=== PATIENT | male | born 1945 | race Caucasian/White ===

== ENCOUNTER 2021-12-11 17:28 | Observation (INO) | payer OTHER ==
--- OUTSIDE RECORDS SUMMARY | 2021-12-11 17:31 | XMS REPORT | Continuity of Care Document ---
:1945 Author Organization [facility] t Address [address] [place] [address] Care Team Providers Name Role Phone Unavailable Unavailable Unavailable Payers Payer Name Policy Type Policy Number Effective Date Expiration Date S ource Problems This patient has no known problems. Allergies, Adverse Reactions, Alerts Allergy Allergy Status Severity Reaction(s) Onset Inactive Treating Comm ents Source Name Type Date Date Clinician No Known DA Active U 2018-06 [facility] 1-19 [place] 00:[facility]: [address] No Known DA Active U 2015-06 [facility] 0-03 [place] 00:[place]: [address] Medications This patient has no known medications. Procedures This patient has no known procedures. Results Test Description Test Time Test Comments Results Result [facility] e Comments CT, BRAIN, 2019-06-07 FINAL REPORT PATIENT WITHOUT CONTRAST 08:36:00 ID: [id number] CT, BRAIN, WITHOUT CONTRAST CLINICAL INDICATION: MCI COMPARISON: None TECHNIQUE: Noncontrast axial CT imaging of the brain and skull. DOSE REDUCTION: Dose modulation, iterative reconstruction, and/or weight-based adjustment of the mA/kV was utilized to reduce the radiation dose to as low as reasonably achievable. FINDINGS:No intracranial hemorrhage, midline shift or mass effect. Midline structures are normally developed. Mild chronic microvascular ischemic changes of the periventricular and subcortical white matter are present. No hydrocephalus. Orbits are within normal limits. No obstructive paranasal sinus disease. IMPRESSION: No acute intracranial findings If there is persistent clinical concern for intracranial pathology, MR examination is recommended for further characterization. Signed: Jeannette Fofanaeport Verified Date/Time: 06/07/2019 08:36:08 Reading Location: [facility] Reading Room - XR CHEST 1 V 2019-05-18 FAX: Y 11:03:00 Vernon Rivera [phone] Camps: [address]: ADM FAX: Y Javier Perera MD Name: BART SANCHEZ [facility] : 1945 Age/S: 73/M [address] [facility] Unit #: [id number] Loc: [facility] [place], [place] [address] Phys: Javier Perera MD Acct: [id number] Dis Date: Status: ADM IN PHONE #: [phone] Exam Date: 05/18/2019 110 FAX #: [phone] Reason: SHORTNESS OF BREATH EXAMS: CPT CODE: [id number] XR CHEST 1 V 06606 Chest one view AP 05/18/2019 11:02 AM CLINICAL INDICATION: Shortness of breath COMPARISON: 05/16/2019 LOCATION: W1 IMPRESSION: There is suspected pulmonary emphysema. There is bibasilar atelectasis. Cardiomediastinal contours are within normal limits. The central pulmonary vasculature is not engorged. at 1102 Reported and signed by: YING BURTON M.D. CC: Vernon Rivera; Javier Perera MD Technologist: ZEINA RIZVIRT(R)() (ARRT) Transcribed Date/Time/By: 05/18/2019 (2383) :[email or web address] Orig Print D/T: S: 05/18/2019 (1106) Automated exposure control, iterative reconstruction technique, and/oradjustment of mA and/or kV according to patient's size was utilizedfor optimum radiation dose reduction. PAGE 1 Signed Report DRUGS OF ABUSE SCREEN UR 2019-05-18 07:00:00 Test Item Value Reference Range Interpretation Comme nts URN TRICYCLICS (test code = TRICYCURN) Negative NEGATIVE URN COCAINE (test code = COCAURN) Negative NEGATIVE URN CANNABINOIDS (test code = CANNABURN) Negative NEGATIVE URN AMPHETAMINE (test code = AMPHETURN) Negative NEGATIVE URN BARBITURATE (test code = BARBITURN) Positive NEGATIVE A URN BENZODIAZEPINE (test code = BENZOURN) Positive NEGATIVE A URN OPIATES (test code = OPIATURN) Negative NEGATIVE URN PHENCYCLIDINE (PCP) (test code = PHENCURN) Negative NEGATIV E URN METHADONE (test code = METHAURN) Negative NEGATIVE UDS PROCEDURAL CONTROL VERIFIED? YKIT LOT # [id number]. DATE 0870-43-51TUDPTO [id number] 03:43:00 Test Item Value Reference Range Interpretation Comments LACTIC ACID (test code = LACT) 1.00 mmol/L 0.4-2.0 N [id number] 03:38:00 Test Item Value Reference Range Interpretation Comments AMMONIA (test code = AMM) <10 umol/L 1132 L - DUP EXTRACRANIAL [id number] 14:35:00 [place]: [address]: ADM Name: FRANCESBART MCKINLEY [facility] : 1945 Age/S: 73/M [address] Unit #: [id number] Loc: [address] [place], [place] [address] Phys: Bryce Herzog MD Acct: [id number] Dis Date: Status: ADM IN PHONE #: [phone] Exam Date: 05/17/20194 FAX #: [phone] Reason: msc EXAMS: CPT CODE: [id number] DUP EXTRACRANIALBIL 89764 BILATERAL CAROTID ARTERY ULTRASOUND 05/17/2019 CLINICAL INDICATION: Mental status change COMPARISON: None availableLOCATION: W1 TECHNIQUE: Transcutaneous sonography of bilateral carotid systems was performed with delarosa scale, spectral, color-flow and Doppler analysis. FINDINGS: There is no remarkable atherosclerotic plaque deposition in either common, internal, or external carotid artery. Peak systolic velocities in centimeters per second are as follows: Right ICA: 61 Left ICA: 51 Right CCA: 83 Left CCA 108 Right ECA: 80 Left ECA: 90 Right ICA/CCA ratio: 0.7 Left ICA/CCA r atio: 0.5 Flow is antegrade in both vertebral arteries. IMPRESSION: No evidence for hemodynamically significant stenosis in either internal carotid artery. at 1435 Reported and signed by: YING BURTON M.D. PAGE 1 Signed Report (CONTINUED) [place]: [address]: ADM - Name: BART SANCHEZ [facility] : 1945 Age/S: 73/M [address] [facility] Unit #: [id number] Loc: [address] [place], [place] [address] Phys: Bryce Herzog MD Acct: [id number] Date: Status: ADM IN PHONE #: [phone] Exam Date: 05/17/2019 1414 FAX #: [phone] Reason: msc EXAMS: CPT CODE: [id number] DUP EXTRACRANIAL STEPHANIE 11072 <Continued> Facility ACR Accreditation for Ultrasound - July 2011 CC: Vernon Rivera; Javier Perera MD; MD Rosenda Trammell Technologist: BRE ALDANA RDMS Transcribed Date/Time/By: 05/17/2019 (0823) : By: [email or web address] Orig Print D/T: S: 05/17/2019 (8388) PAGE 2 Signed Report- MRI BRAIN W WO [id number] 14:13:00 FAX: Lizzie RiveraVernon E M [phone] Camps: [address]: ADM FAX: Javier Vences EMD FAX: Bryce Orta MD [phone] [facility] 1945 Age/S: 73/M [address] [facility] Unit #: [id number] Loc: [address] [place], [place] [address] Phys: Bryce Herzog MD Acct: [id number] Dis Date: Status: ADM IN PHONE #: [phone] Exam Date: 05/17/2019 1404 FAX #: [phone] Reason: msc EXAMS: CPT CODE: [id number] MRI BRAIN W WO CONT 52545 MRI Brain with and without contrast 05/17/2019 2:10 PM CLINICAL HISTORY: Mental status change TECHNIQUE: Multiplanar, multisequence MR imagi ng of the brain was performed, utilizing the following imaging sequences: Axial T1, T2, FLAIR, GRE, DWI/ADC; sagittal T1; postcontrast axial, sagittal, and coronal T1. COMPARISON: 11/11/2010. LOCATION: W1 FINDINGS: Patient motion degrades this examination. Pathology may be obscured. With this limitation mind, there is no acute infarct, mass, hematoma, hydrocephalus, extra-axial collection, or abnormal intracranial enhancement. There is moderately advanced chronic microvascular ischemia in the supratentorial white matter. There is questionable hemosiderin staining overlying the left frontal, parietal, and occipital lobes, which may reflect artifact or sequela of prior subarachnoid hemorrhage. Thereis generalized parenchymal volume loss. Normal appearing flow-voids are present within the major intracranial vascular structures. The sellar and pineal regions are normal. The craniovertebral junction is intact. The orbits, face, and skull base are without worrisome finding. IMPRESSION: 1. Motion limited examination. 2. Chronic microvascular ischemia. No acute intracranial abnormality. at 1413 Reported and signed by: YING BURTON M.D. PAGE 1 Signed Report (CONTINUED)FAX: Vernon Holm [phone] Camps: [address] St: ADM FAX: Javier Vences MD FAX: Byrce Orta MD [phone] [facility] 1945 Age/S: 73/M [address] Unit #:[id number] Loc: [address] [place], [place] [address] Phys: Bryce Herzog MD Acct: [id number] Dis Date: Status: ADM IN PHONE #: [phone] Exam Date: 05/17/2019 1404 FAX #: [phone] Reason: msc EXAMS: CPT CODE: [id number] MRI BRAIN W WO CONT 22494 <Continued> CC: Vernon Rivera; Javier Perera MD; MD Rosenda Trammell Technologist: Neymar Washington RT(R)(CT)(MRI)ARRT Transcribed Date/Time/By: 05/17/2019 (7579) :[email or web address] Orig Print D/T: S: 05/17/2019 (4176) PAGE 2 Signed Report VITAMIN [id number] 09:18:00 Test Item Value Reference Range Interpretation Comments VITAMIN B12 (test code = VITB12) 677 pg/mL 230-940 N C REACTIVE [id number] 09:12:00 Test Item Value Reference Range Interpretation Comments C REACTIVE PROTEIN (test code = 0.60 mg/dL 0.29-0.90 N CRP) DILANTIN (PHENYTOIN)2019-05-17 08:49:00 Test Item Value Reference Range Interpretation Comments DILANTIN (PHENYTOIN) (test code = 15.4 mcg/dL 10-20 N DIL) BASIC METABOLIC [id number] 06:24:00 Test Item Value Reference Range Interpretation Comments SODIUM (test code = 134 mmol/L 136-145 L NA) POTASSIUM (test code = 3.7 mmol/L 3.5-5.1 N K) CHLORIDE (test code = 100 mmol/L 98-113 N CL) CARBON DIOXIDE (test 32 mmol/L 21-32 N code = CO2) GLUCOSE (test code = 87 mg/dL 65-99 N GLU) BLOOD UREA NITROGEN 13 mg/dL 7-18 N (test code = BUN) GLOMERULAR FILTRATION 141 Report ing units: RATE (test code = GFR) ml/mi n/1.73m\S\2 (Modified MDRD Formula)If age < 18 years, GFR is n ot applicable. KD/ DOQI Clinical Practi ce Guidelines: Sta ge 1: Kidney damage w/normal or inc reased GFR >90Stag e 2: Kidney damage w /mild decrease in GFR 60 - 89Stage 3: Moderate decrea se in GFR 30 - 59Stage 4: Severe decrease in GFR 15 - 29Stage 5: Kidney failure < 15 (or dialysis) CREATININE (test code 0.6 mg/dL 0.6-1.0 N = CREAT) CALCIUM (test code = 9.1 mg/dL 7.8-10.9 N CA) [id number] 06:24:00 Test Item Value Reference Range Interpretation Comments MAGNESIUM (test code = MAG) 2.2 mg/dL 1.5-2.1 H CBC W/AUTO [id number] 06:22:00 Test Item Value Reference Range Interpretation Comments WHITE BLOOD CELL (test code = 8.7 K/mm3 4.8-10.8 N WBC) RED BLOOD CELL (test code = RBC) 4.06 M/mm3 4.2-5.4 L HEMOGLOBIN (test code = HGB) 12.8 gm/DL 13.5-17.5 L HEMATOCRIT (test code = HCT) 37.7 % 37.1-51.5 N MEAN CELL VOLUME (test code = 92.9 fL 81-99 N MCV) MEAN CELL HGB (test code = MCH) 31.5 pg 27-31 H MEAN CELL HGB CONCETRATION (test 34.0 gm/dL 33-37 N code = MCHC) RED CELL DISTRIBUTION WIDTH (test 12.8 % 11.5-14.5 N code = RDW) PLATELET COUNT (test code = PLT) 296 X10(3) 130-400 N MEAN PLATELET VOLUME (test code = 9.0 fL 9.4-12.4 L MPV) NEUTROPHIL % (test code = NT%) 61.0 % 51.5-79.7 N IMMATURE GRANULOCYTE % (test code 0.500 % 0.108-0.322 H = IG%) LYMPHOCYTE % (test code = LY%) 23.7 % 14-40 N MONOCYTE % (test code = MO%) 13.5 % 4.0-10.2 H EOSINOPHIL % (test code = EO%) 0.8 % 0-4.1 N BASOPHIL % (test code = BA%) 0.5 % 0.1-0.7 N NUCLEATED RBC % (test code = 0 % 0-0 N NRBC%) NEUTROPHIL # (test code = NT#) 5.3 K/mm3 2.5-8.6 N IMMATURE GRANULOCYTE # (test code 0.040 K/mm3 0.0052-0.0224 H = IG#) LYMPHOCYTE # (test code = LY#) 2.1 K/mm3 1.1-3.6 N MONOCYTE # (test code = MO#) 1.2 K/mm3 0.3-0.9 H EOSINOPHIL # (test code = EO#) 0.07 # 0.0-0.4 N BASOPHIL # (test code = BA#) 0.04 K/mm3 0.0-0.2 N NUCLEATED RBC # (test code = 0.00 K/mm3 0.00-0.20 N NRBC#) BASIC METABOLIC [id number] 06:21:00 Test Item Value Reference Range Interpretation Comments SODIUM (test code = NA) 134 mmol/L 136-145 L POTASSIUM (test code = K) 3.7 mmol/L 3.5-5.1 N CHLORIDE (test code = CL) 100 mmol/L 98-113 N CARBON DIOXIDE (test code = CO2) 32 mmol/L 21-32 N GLUCOSE (test code = GLU) 87 mg/dL 65-99 N BLOOD UREA NITROGEN (test code = 13 mg/dL 7-18 N BUN) GLOMERULAR FILTRATION RATE (test code = GFR) CREATININE (test code = CREAT) mg/dL 0.6-1.0 CALCIUM (test code = CA) 9.1 mg/dL 7.8-10.9 N [id number] 06:21:00 Test Item Value Reference Range Interpretation Comments MAGNESIUM (test code = MAG) 2.2 mg/dL 1.5-2.1 H ARTERIAL BLOOD [id number] 18:32:00 Test Item Value Reference Range Interpretation Comments ARTERIAL BLOOD GAS PH (test code 7.408 7.35-7.45 N = PHA) ARTERIAL BLOOD GAS PCO2 (test 42.5 mmHg 35-45 N code = PCO2A) ARTERIAL BLOOD GAS PO2 (test 78.2 mmHg 80-100 L code = PO2A) BICARBONATE TOTAL HCO3 (test 26.2 meq/L 22-26 H code = HCO3) BASE EXCESS (test code = LUCY) 1.3 -2.0-+2.0 N ABG O2 SATURATION (test code = 95.6 % 95-100 N SATA) ABG OXIMETRY (test code = OXA) 95.2 % sat FIO2 (test code = FIO2A) 28 % ABG VENT MODE (test code = NC MODEA) ABG PATIENT RESP RATE (test code 18.0 /MIN = RRPATA) ABG TIDAL VOLUME (test code = 0 ml TVA) ABG PEEP (test code = PEEPA) 0 cmH2O LORAINE TEST (test code = ALN) Yes ABG SITE (test code = SITEA) RIGHT RADIAL TOTAL HGB (test code = THB) 13.7 g% 12.0-18.0 N HGB O2 SAT (test code = HBOSAT) 95.2 % 92.0-98.0 N OXYHEMOGLOBIN-ART (test code = 95.2 % 92.0-98.0 N OOHGBT) CARBOXYHEMOGLOBIN (test code = 0.8 % 0.5-1.5 N HOHGBT) METHEMOGLOBIN (test code = 0.2 % 0.0-1.5 N METHGB) HEPATIC FUNCTION [id number] 17:37:00 Test Item Value Reference Range Interpretation Comments TOTAL PROTEIN (test 7.1 g/dL 6.4-8.2 N code = PROT) ALBUMIN (test code = 3.4 g/dL 3.4-5.0 N ALB) GLOBULIN (test code = 3.7 gm/dL 2.3-3.5 H GLOB) ALBUMIN/GLOBULIN 0.9 1.5-2.2 L RATIO (test code = A/G) BILIRUBIN TOTAL (test 0.3 mg/dL 0.0-1.1 N code = BILT) BILIRUBIN DIRECT <0.1 mg/dL 0.05-0.3 N (test code = BILD) BILIRUBIN INDIRECT 0.2 mg/dL 0.0-0.6 N (test code = BILIND) SGOT/AST (test code = 20 U/L 15-37 N Report ing units: AST) International U nits/L SGPT/ALT (test code = 34 U/L 10-30 H Report ing units: ALT) International U nits/L ALKALINE PHOSPHATASE 112 U/L 45-117 N TOTAL (test code = ALKP) [id number] 17:37:00 Test Item Value Reference Range Interpretation Comments LIPASE (test code = 242 U/L 73-393 N Reportin g units: LIP) International U nits/L NT PRO-BRAIN NATRIURETIC [id number] 17:37:00 Test Item Value Reference Range Interpretation Comments NT PRO-BRAIN NATRIURETIC PEPTI (test 94 pg/mL 0-125 N code = PROBNP) TROPONIN I [id number] 17:35:00 Test Item Value Reference Range Interpretation Comments TROPONIN I RAPID 0.00 NG/ML 0.00-0.08 N An elevated troponin value (test code = alone is not worrell fficient TROPIRAP) todiagnose a my ocardial infarction. Rat her, the patient'sclinic al presentation (h istory, physical exam) and ECGshould be us ed in conjuction with troponin in the diagnostice valuation of suspected myoca rdial infaction. A se rialsampling protocol is rec ommended to facilitate theidentificati on of temporal change s in troponin levelscharacter jaqueline [facility]. CHEMISTRY 8 [id number] 17:35:00 Test Item Value Reference Range Interpretation Comments IONIZED CALCIUM (test code = 1.19 mmol/L 1.13-1.32 N CAIABG) ISTAT-TCO2 VENOUS (test code = 27 MMOL/L 24-30 N TCO2VP) ISTAT-HEMOGLOBIN (test code = 13.3 G/DL 13.5-17.5 L HBP) ISTAT-HEMATOCRIT (test code = 39 % 44.0-56.0 L HCTP) ISTAT-SODIUM (test code = NAP) 132 MMOL/L 136-145 L ISTAT-POTASSIUM (test code = KP) 3.6 MMOL/L 3.5-5.1 N ISTAT-CHLORIDE (test code = CLP) 97 MMOL/L 98-107 L ISTAT GLUCOSE (test code = GLUP) 97 MG/DL 65-99 N ISTAT-BUN (test code = BUNP) 18 MG/DL 7-18 N BEDSIDE CREATININE (test code = 0.6 MG/DL 0.6-1.0 N CREATBED) - XR CHEST 1 [id number] 17:34:00 FAX: Vernon Holm [phone] Camps: ER St: REG FAX: Catarino Lopez [phone] Name: BART SANCHEZ [facility] : 1945 Age/S: 73/M [address] Unit #: [id number] Loc: [place], [place] [address] Phys: Catarino Lopez MD Acct: LEATHA [id number] Dis Date: Status: REG ER PHONE #: [phone] Exam Date: 05/16/2019 1706 FAX #: [phone] Reason: SOB EXAMS: CPT CODE: [id number] XR CHEST 1 V 08555 AP VIEW OF THE CHEST LOCATION: R16 CLINICAL HISTORY: Shortness of breath. COMPARISON: Chest radiograph 05/08/2019. FINDINGS: The cardiomediastinal shadow is within normal limits. Mild atherosclerotic calcifications are noted in the aortic knob. The lungs are clear. No pleural fluids. No acute bony abnormality is found. IMPRESSION: No radiographic evidence of acute cardiopulmonary disease process. at 2493 Reported andsigned by: SAVLADOR FLANAGAN MD CC: Vernon Rivera; Catarino Lopez MD Technologist: ZEINA RIZVIRT(R)() (ARRT) Transcribed Date/Time/By: 05/16/2019 (9210) :[email or web address] Orig Print D/T: S: 05/16/2019 (8496) Automated exposure control, iterative reconstruction technique, and/oradjustment of mA and/or kV according to patient's size was utilizedfor optimum radiation dose reduction. PAGE 1 Signed ReportPROTHROMBIN [id number] 17:26:00 Test Item Value Reference Interpretation Comments Range PROTHROMBIN TIME 10.9 SECONDS 9.9-11.6 N PATIENT (test code = PTP) INTERNATIONAL 1.06 0.93-1.2 N Recommended Th erapeutic NORMAL RATIO (test PT Ratios For Oral code = INR) AnticoagualantT herapy. CONDITION INT'L NORMALIZED PT R --------- ------ Prophylaxis of venous thrombosis 2.0 - 3.0in hig h risk medical or surgicalpatient s, treatment of venousthrombosi s, prevention of e mbolism. Prevention of r ecurrent embolism, 3.0 - 4.5or treatme nt of patients with mechanicalprost hetic heart valves. IS THE PATIENT ON ANY ANTICOAGULANTS? NTHROMBOPLASTIN TIME [id number] 17:26:00 Test Item Value Reference Range Interpretation Comments THROMBOPLASTIN TIME PARTIAL 30.3 SECONDS 23.0-32.0 N (test code = PTT) IS THE PATIENT ON ANY ANTICOAGULANTS? ND-DIMER [id number] 17:26:00 Test Item Value Reference Range Interpretation Comments D-DIMER QUANT (test 0.31 mg/L 0.19-0.52 N *A resul t of greater or code = DDIMER) equal to 0.50 mg/L FEU is consideredpo sitive, a result of <0.50 is considered nega tive for DVTor PE. IS THE PATIENT ON ANY ANTICOAGULANTS? NPROTHROMBIN [id number] 17:24:00 Test Item Value Reference Interpretation Comments Range PROTHROMBIN TIME 10.9 SECONDS 9.9-11.6 N PATIENT (test code = PTP) INTERNATIONAL 1.06 0.93-1.2 N Recommended Th erapeutic NORMAL RATIO (test PT Ratios For Oral code = INR) AnticoagualantT herapy. CONDITION INT'L NORMALIZED PT R --------- ------ Prophylaxis of venous thrombosis 2.0 - 3.0in hig h risk medical or surgicalpatient s, treatment of venousthrombosi s, prevention of e mbolism. Prevention of r ecurrent embolism, 3.0 - 4.5or treatme nt of patients with mechanicalprost hetic heart valves. IS THE PATIENT ON ANY ANTICOAGULANTS? NTHROMBOPLASTIN TIME [id number] 17:24:00 Test Item Value Reference Range Interpretation Comments THROMBOPLASTIN TIME PARTIAL (test SECONDS 23.0-32.0 code = PTT) IS THE PATIENT ON ANY ANTICOAGULANTS? ND-DIMER [id number] 17:24:00 Test Item Value Reference Range Interpretation Comments D-DIMER QUANT (test code = DDIMER) mg/L 0.19-0.52 IS THE PATIENT ON ANY ANTICOAGULANTS? NCBC W/AUTO [id number] 17:16:00 Test Item Value Reference Range Interpretation Comments WHITE BLOOD CELL (test code = 10.5 K/mm3 4.8-10.8 N WBC) RED BLOOD CELL (test code = RBC) 3.94 M/mm3 4.2-5.4 L HEMOGLOBIN (test code = HGB) 12.5 gm/DL 13.5-17.5 L HEMATOCRIT (test code = HCT) 36.6 % 37.1-51.5 L MEAN CELL VOLUME (test code = 92.9 fL 81-99 N MCV) MEAN CELL HGB (test code = MCH) 31.7 pg 27-31 H MEAN CELL HGB CONCETRATION (test 34.2 gm/dL 33-37 N code = MCHC) RED CELL DISTRIBUTION WIDTH (test 12.8 % 11.5-14.5 N code = RDW) PLATELET COUNT (test code = PLT) 283 X10(3) 130-400 N MEAN PLATELET VOLUME (test code = 8.8 fL 9.4-12.4 L MPV) NEUTROPHIL % (test code = NT%) 69.3 % 51.5-79.7 N IMMATURE GRANULOCYTE % (test code 0.600 % 0.108-0.322 H = IG%) LYMPHOCYTE % (test code = LY%) 16.2 % 14-40 N MONOCYTE % (test code = MO%) 12.1 % 4.0-10.2 H EOSINOPHIL % (test code = EO%) 1.2 % 0-4.1 N BASOPHIL % (test code = BA%) 0.6 % 0.1-0.7 N NUCLEATED RBC % (test code = 0 % 0-0 N NRBC%) NEUTROPHIL # (test code = NT#) 7.3 K/mm3 2.5-8.6 N IMMATURE GRANULOCYTE # (test code 0.060 K/mm3 0.0052-0.0224 H = IG#) LYMPHOCYTE # (test code = LY#) 1.7 K/mm3 1.1-3.6 N MONOCYTE # (test code = MO#) 1.3 K/mm3 0.3-0.9 H EOSINOPHIL # (test code = EO#) 0.13 # 0.0-0.4 N BASOPHIL # (test code = BA#) 0.06 K/mm3 0.0-0.2 N NUCLEATED RBC # (test code = 0.00 K/mm3 0.00-0.20 N NRBC#) - CT CHEST W/O [id number] 20:25:00 [place]: [address]: REG Name: BART SANCHEZ [facility] : 1945 Age/S: 73/M [address] Unit #: [id number] Loc: [place], [place] [address] Phys: Randolph Romero MD Acct: [id number] Dis Date: Status: REG ER PHONE #: [phone] Exam Date: 05/08/20192004 FAX #: [phone] Reason: SOB CTDI: DLP: Automated exposure control, iterative reconstruction technique, and/oradjustment of mA and/or kV according to patient's size was utilized fooptimum radiation dose reduction. EXAMS: CPT CODE: [id number] CT CHEST W/O CONTRAST [address]690 CT chest without IV contrast INDICATION:SOB COMPARISON:11/12/2010 TECHNIQUE: Contiguous axial images of the chest were obtained without IV c ontrast. Coronal and sagittal reformats were obtained. Automated exposure control, iterative reconstruction technique, and/or adjustment of mA and/or kV according to patient's size was utilized for optimum radiation dose reduction. FINDINGS:The visualized neck is unremarkable. Trace secretions are noted in the trachea. The esophagus is unremarkable. Atherosclerosis of the thoracic aorta is identified. Ultimately is noted. No large pericardial effusion is identified. Extensive emphysematous changes are noted bilaterally predominantly in the upper lobes. 6 cm nodule is noted in the right lower lobe. 5 mm nodule is noted in the left lower lobe. Additional punctate nodules are noted bilaterally. Atelectasisversus scarring is noted in the lung bases. No consolidation, pleural effusions or pneumothorax is identified. Small mediastinal lymph nodes are noted which are nonspecific. The visualized abdomen is unremarkable. Degenerative changes of the spine are note d. IMPRESSION: 1. Extensive emphysematous changes bilaterally predominantly in bilateral upper lobes. 2. 6 mm nodule in the right lower lobe and 5 mm nodule in the left lower lobe which are stable compared to prior study dated 11/12/2010. Additional punctate nodules are noted bilaterally. Recommend 6 month PAGE 1 Signed Report (CONTINUED) [place]: [address]: REG Name: BART SANCHEZ [facility] : 1945 Age/S: 73/M [address] Unit #: [id number] Loc: LEATHA.MADIHA [place], [place] [address] Phys: Randolph Romero MD Acct: [id number] Dis Date: Status: REG ER PHONE #: [phone] Exam Date: 05/08/20192004 FAX #: [phone] Reason: SOB CTDI: DLP: Automated exposure control, iterative reconstruction technique, and/oradjustment of mA and/or kV according to patient's size was utilized fooptimum radiation dose reduction. EXAMS: CPT CODE: [id number] CT CHEST W/O CONTRAST 39020 <Continued> CT follow-up. 3. No consolidation. at 2024 Reported and signed by: JANELLE DAWN M.D. Facility ACR Accreditation for CT - January 2012 CC: Vernon Rivera; Randolph Romero MD Technologist: ALICIA MOSER RT(R) (ARRT) Transcribed Date/Time/By: 05/08/2019 (2024) : By: [email or web address] Orig Print D/T: S: 05/08/2019 (2028) PAGE 2 Signed ReportNT PRO-BRAIN NATRIURETIC [id number] 19:49:00 Test Item Value Reference Range Interpretation Comments NT PRO-BRAIN NATRIURETIC PEPTI 108 pg/mL 0-125 N (test code = PROBNP) CBC W/AUTO [id number] 19:45:00 Test Item Value Reference Range Interpretation Comments WHITE BLOOD CELL (test code = 11.7 K/mm3 4.8-10.8 H WBC) RED BLOOD CELL (test code = RBC) 3.55 M/mm3 4.2-5.4 L HEMOGLOBIN (test code = HGB) 11.4 gm/DL 13.5-17.5 L HEMATOCRIT (test code = HCT) 32.4 % 37.1-51.5 L MEAN CELL VOLUME (test code = 91.3 fL 81-99 N MCV) MEAN CELL HGB (test code = MCH) 32.1 pg 27-31 H MEAN CELL HGB CONCETRATION (test 35.2 gm/dL 33-37 N code = MCHC) RED CELL DISTRIBUTION WIDTH (test 12.6 % 11.5-14.5 N code = RDW) PLATELET COUNT (test code = PLT) 328 X10(3) 130-400 N MEAN PLATELET VOLUME (test code = 8.8 fL 9.4-12.4 L MPV) NEUTROPHIL % (test code = NT%) 65.0 % 51.5-79.7 N IMMATURE GRANULOCYTE % (test code 1.000 % 0.108-0.322 H = IG%) LYMPHOCYTE % (test code = LY%) 20.6 % 14-40 N MONOCYTE % (test code = MO%) 12.1 % 4.0-10.2 H EOSINOPHIL % (test code = EO%) 0.7 % 0-4.1 N BASOPHIL % (test code = BA%) 0.6 % 0.1-0.7 N NUCLEATED RBC % (test code = 0 % 0-0 N NRBC%) NEUTROPHIL # (test code = NT#) 7.6 K/mm3 2.5-8.6 N IMMATURE GRANULOCYTE # (test code 0.120 K/mm3 0.0052-0.0224 H = IG#) LYMPHOCYTE # (test code = LY#) 2.4 K/mm3 1.1-3.6 N MONOCYTE # (test code = MO#) 1.4 K/mm3 0.3-0.9 H EOSINOPHIL # (test code = EO#) 0.08 # 0.0-0.4 N BASOPHIL # (test code = BA#) 0.07 K/mm3 0.0-0.2 N NUCLEATED RBC # (test code = 0.00 K/mm3 0.00-0.20 N NRBC#) ARTERIAL BLOOD [id number] 19:27:00 Test Item Value Reference Range Interpretation Comments ARTERIAL BLOOD GAS PH (test code 7.448 7.35-7.45 N = PHA) ARTERIAL BLOOD GAS PCO2 (test 38.1 mmHg 35-45 N code = PCO2A) ARTERIAL BLOOD GAS PO2 (test 70.8 mmHg 80-100 L code = PO2A) BICARBONATE TOTAL HCO3 (test 25.8 meq/L 22-26 N code = HCO3) BASE EXCESS (test code = LUCY) 1.8 -2.0-+2.0 N ABG O2 SATURATION (test code = 94.9 % 95-100 L SATA) ABG OXIMETRY (test code = OXA) 93.6 % sat FIO2 (test code = FIO2A) 21 % ABG VENT MODE (test code = ROOM AIR MODEA) ABG PATIENT RESP RATE (test code 0 /MIN = RRPATA) ABG TIDAL VOLUME (test code = 0 ml TVA) ABG PEEP (test code = PEEPA) 0 cmH2O LORAINE TEST (test code = ALN) Yes ABG SITE (test code = SITEA) RIGHT RADIAL TOTAL HGB (test code = THB) 12.6 g% 12.0-18.0 N HGB O2 SAT (test code = HBOSAT) 93.6 % 92.0-98.0 N OXYHEMOGLOBIN-ART (test code = 93.6 % 92.0-98.0 N OOHGBT) CARBOXYHEMOGLOBIN (test code = 0.6 % 0.5-1.5 N HOHGBT) METHEMOGLOBIN (test code = 0.1 % 0.0-1.5 N METHGB) TROPONIN I [id number] 19:26:00 Test Item Value Reference Range Interpretation Comments TROPONIN I RAPID 0.00 NG/ML 0.00-0.08 N An elevated troponin value (test code = alone is not worrell fficient TROPIRAP) todiagnose a my ocardial infarction. Rat her, the patient'sclinic al presentation (h istory, physical exam) and ECGshould be us ed in conjuction with troponin in the diagnostice valuation of suspected myoca rdial infaction. A se rialsampling protocol is rec ommended to facilitate theidentificati on of temporal change s in troponin levelscharacter istic of [place]. CHEMISTRY 8 [id number] 19:26:00 Test Item Value Reference Range Interpretation Comments IONIZED CALCIUM (test code = 1.04 mmol/L 1.13-1.32 L CAIABG) ISTAT-TCO2 VENOUS (test code = 27 MMOL/L 24-30 N TCO2VP) ISTAT-HEMOGLOBIN (test code = 11.9 G/DL 13.5-17.5 L HBP) ISTAT-HEMATOCRIT (test code = 35 % 44.0-56.0 L HCTP) ISTAT-SODIUM (test code = NAP) 133 MMOL/L 136-145 L ISTAT-POTASSIUM (test code = KP) 3.3 MMOL/L 3.5-5.1 L ISTAT-CHLORIDE (test code = CLP) 99 MMOL/L 98-107 N ISTAT GLUCOSE (test code = GLUP) 89 MG/DL 65-99 N ISTAT-BUN (test code = BUNP) 16 MG/DL 7-18 N BEDSIDE CREATININE (test code = 0.5 MG/DL 0.6-1.0 L CREATBED) - XR CHEST 1 [id number] 19:09:00 FAX: Vernon Holm [phone] Camps: ER St: REG FAX: Randolph Weiss MD Name: BART SANCHEZ [facility] : 1945 Age/S: 73/M 89a [facility] Unit #: [id number] Loc: [place], [place] [address] Phys: Randolph Romero MD Acct: LEATHA [id number] Dis Date: Status: REG ER PHONE #: [phone] Exam Date: 05/08/2019 184 FAX #: [phone] Reason: SOB EXAMS: CPT CODE: [id number] XR CHEST 1 V 20773 Site ID: [id number] EXAMINATION: - XR CHEST 1 V. HISTORY: SOB. COMPARISON: 2018. Findings: The lungs are clear. The heart size is normal. There is no effusion or pneumothorax. The mediastinum and brook appear unremarkable. Impression: Unremarkable study. at 1909 Reported and signed by: HIMA DUBON MD CC: Vernon Rivera; Randolph Romero MD Technologist: SHARYN HERNANDEZ RT (R)(ARRT) Transcribed Date/Time/By: 05/08/2019 (1908) :GeovannaTZS Orig Print D/T: S: 05/08/2019 (1911) Automated exposure control, iterative reconstruction technique, and/oradjustment of mA and/or kV according to patient's size was utilizedfor optimum radiation dose reduction. PAGE 1 Signed ReportARTERIAL BLOOD [id number] 05:20:00 Test Item Value Reference Range Interpretation Comments ARTERIAL BLOOD GAS PH (test code 7.471 7.35-7.45 H = PHA) ARTERIAL BLOOD GAS PCO2 (test 31.7 mmHg 35-45 L code = PCO2A) ARTERIAL BLOOD GAS PO2 (test 85.2 mmHg 80-100 N code = PO2A) BICARBONATE TOTAL HCO3 (test 22.6 meq/L 22-26 N code = HCO3) BASE EXCESS (test code = LUCY) -0.2 -2.0-+2.0 N ABG O2 SATURATION (test code = 97.1 % 95-100 N SATA) ABG OXIMETRY (test code = OXA) 96.1 % sat FIO2 (test code = FIO2A) 21 % ABG VENT MODE (test code = ROOM AIR MODEA) ABG PATIENT RESP RATE (test code 0 /MIN = RRPATA) ABG TIDAL VOLUME (test code = 0 ml TVA) ABG PEEP (test code = PEEPA) 0 cmH2O LORAINE TEST (test code = ALN) Yes ABG SITE (test code = SITEA) RIGHT RADIAL TOTAL HGB (test code = THB) 13.6 g% 12.0-18.0 N HGB O2 SAT (test code = HBOSAT) 96.1 % 92.0-98.0 N OXYHEMOGLOBIN-ART (test code = 96.1 % 92.0-98.0 N OOHGBT) CARBOXYHEMOGLOBIN (test code = 0.8 % 0.5-1.5 N HOHGBT) METHEMOGLOBIN (test code = 0.2 % 0.0-1.5 N METHGB) BASIC METABOLIC [id number] 19:08:00 Test Item Value Reference Range Interpretation Comments SODIUM (test code = 134 mmol/L 136-145 L NA) POTASSIUM (test code = 3.4 mmol/L 3.5-5.1 L K) CHLORIDE (test code = 101 mmol/L 98-113 N CL) CARBON DIOXIDE (test 28 mmol/L 21-32 N code = CO2) GLUCOSE (test code = 88 mg/dL 65-99 N GLU) BLOOD UREA NITROGEN 28 mg/dL 7-18 H (test code = BUN) GLOMERULAR FILTRATION 141 Report ing units: RATE (test code = GFR) ml/mi n/1.73m\S\2 (Modified MDRD Formula)If age < 18 years, GFR is n ot applicable. KD/ DOQI Clinical Practi ce Guidelines: Sta ge 1: Kidney damage w/normal or inc reased GFR >90Stag e 2: Kidney damage w /mild decrease in GFR 60 - 89Stage 3: Moderate decrea se in GFR 30 - 59Stage 4: Severe decrease in GFR 15 - 29Stage 5: Kidney failure < 15 (or dialysis) CREATININE (test code 0.6 mg/dL 0.6-1.0 N = CREAT) CALCIUM (test code = 9.8 mg/dL 7.8-10.9 N CA) [id number] 19:08:00 Test Item Value Reference Range Interpretation Comments MAGNESIUM (test code = MAG) 2.2 mg/dL 1.5-2.1 H NT PRO-BRAIN NATRIURETIC [id number] 19:08:00 Test Item Value Reference Range Interpretation Comments NT PRO-BRAIN NATRIURETIC PEPTI (test 43 pg/mL 0-125 N code = PROBNP) PROTHROMBIN [id number] 18:58:00 Test Item Value Reference Interpretation Comments Range PROTHROMBIN TIME 10.9 SECONDS 9.9-11.6 N PATIENT (test code = PTP) INTERNATIONAL 1.06 0.93-1.2 N Recommended Th erapeutic NORMAL RATIO (test PT Ratios For Oral code = INR) AnticoagualantT herapy. CONDITION INT'L NORMALIZED PT R --------- ------ Prophylaxis of venous thrombosis 2.0 - 3.0in hig h risk medical or surgicalpatient s, treatment of venousthrombosi s, prevention of e mbolism. Prevention of r ecurrent embolism, 3.0 - 4.5or treatme nt of patients with mechanicalprost hetic heart valves. IS THE PATIENT ON ANY ANTICOAGULANTS? NTHROMBOPLASTIN TIME [id number] 18:58:00 Test Item Value Reference Range Interpretation Comments THROMBOPLASTIN TIME PARTIAL 29.1 SECONDS 23.0-32.0 N (test code = PTT) IS THE PATIENT ON ANY ANTICOAGULANTS? NPROTHROMBIN [id number] 18:57:00 Test Item Value Reference Interpretation Comments Range PROTHROMBIN TIME 10.9 SECONDS 9.9-11.6 N PATIENT (test code = PTP) INTERNATIONAL 1.06 0.93-1.2 N Recommended Th erapeutic NORMAL RATIO (test PT Ratios For Oral code = INR) AnticoagualantT herapy. CONDITION INT'L NORMALIZED PT R --------- ------ Prophylaxis of venous thrombosis 2.0 - 3.0in hig h risk medical or surgicalpatient s, treatment of venousthrombosi s, prevention of e mbolism. Prevention of r ecurrent embolism, 3.0 - 4.5or treatme nt of patients with mechanicalprost hetic heart valves. IS THE PATIENT ON ANY ANTICOAGULANTS? NTHROMBOPLASTIN TIME [id number] 18:57:00 Test Item Value Reference Range Interpretation Comments THROMBOPLASTIN TIME PARTIAL (test SECONDS 23.0-32.0 code = PTT) IS THE PATIENT ON ANY ANTICOAGULANTS? NCBC W/AUTO [id number] 18:43:00 Test Item Value Reference Range Interpretation Comments WHITE BLOOD CELL (test code = 9.3 K/mm3 4.8-10.8 N WBC) RED BLOOD CELL (test code = RBC) 4.11 M/mm3 4.2-5.4 L HEMOGLOBIN (test code = HGB) 13.4 gm/DL 13.5-17.5 L HEMATOCRIT (test code = HCT) 37.7 % 37.1-51.5 N MEAN CELL VOLUME (test code = 91.7 fL 81-99 N MCV) MEAN CELL HGB (test code = MCH) 32.6 pg 27-31 H MEAN CELL HGB CONCETRATION (test 35.5 gm/dL 33-37 N code = MCHC) RED CELL DISTRIBUTION WIDTH (test 13.4 % 11.5-14.5 N code = RDW) PLATELET COUNT (test code = PLT) 325 X10(3) 130-400 N MEAN PLATELET VOLUME (test code = 9.4 fL 9.4-12.4 N MPV) NEUTROPHIL % (test code = NT%) 62.2 % 51.5-79.7 N IMMATURE GRANULOCYTE % (test code 0.600 % 0.108-0.322 H = IG%) LYMPHOCYTE % (test code = LY%) 24.3 % 14-40 N MONOCYTE % (test code = MO%) 12.2 % 4.0-10.2 H EOSINOPHIL % (test code = EO%) 0.2 % 0-4.1 N BASOPHIL % (test code = BA%) 0.5 % 0.1-0.7 N NUCLEATED RBC % (test code = 0 % 0-0 N NRBC%) NEUTROPHIL # (test code = NT#) 5.7 K/mm3 2.5-8.6 N IMMATURE GRANULOCYTE # (test code 0.060 K/mm3 0.0052-0.0224 H = IG#) LYMPHOCYTE # (test code = LY#) 2.3 K/mm3 1.1-3.6 N MONOCYTE # (test code = MO#) 1.1 K/mm3 0.3-0.9 H EOSINOPHIL # (test code = EO#) 0.02 # 0.0-0.4 N BASOPHIL # (test code = BA#) 0.05 K/mm3 0.0-0.2 N NUCLEATED RBC # (test code = 0.00 K/mm3 0.00-0.20 N NRBC#) TROPONIN I [id number] 18:41:00 Test Item Value Reference Range Interpretation Comments TROPONIN I RAPID 0.00 NG/ML 0.00-0.08 N 0.00 - 0.08 (test code = Normal0.09 - 0. 40 TROPIRAP) Indeterminate f or AMI 0.41 and above Compatible with AMI - XR CHEST 1 [id number] 18:10:00 FAX: Vernon Holm [phone] Camps: ER St: REG FAX: Sergio Sanderson [phone] Name: LAURABART [facility] : 1945 Age/S: 73/M 89a [facility] Unit #: [id number] Loc: [place] [address] Phys: Sergio Nicole DO Acct: [id number] Dis Date: Status: REG ER PHONE #: [phone] Exam Date: 03/31/2019 1756 FAX #: [phone] Reason: SOB EXAMS: CPT CODE: [id number] XR CHEST 1 V 57766 Exam: Chest portable semierect Location: H 12 History: SOB Comparison: SOB Findings: The lungs are clear. No infiltrate or effusion is seen. The pulmonary vasculature is normal. The heart size is enlarged. Atherosclerosis involves the aorta. The mediastinal silhouette is unremarkable. The bony thorax is intact with degenerative changes noted. Impression: No acute disease. at 1810 Reported and signed by: LIZ DOUGLASS MD CC: Vernon Rivera; Sergio Nicole DO Technologist: ARJUN MAK RT,(R) ARRT Transcribed Date/Time/By: 03/31/2019 (1809) :GeovannaFC Orig Print D/T: S: 03/31/2019 (1812) Automated exposure control, iterative reconstruction technique, and/oradjustment of mA and/or kVaccording to patient's size was utilizedfor optimum radiation dose reduction. PAGE 1 Signed Report CHEMISTRY 8 [id number] 18:03:00 Test Item Value Reference Range Interpretation Comments IONIZED CALCIUM (test code = 1.22 mmol/L 1.13-1.32 N CAIABG) ISTAT-TCO2 VENOUS (test code = 25 MMOL/L 24-30 N TCO2VP) ISTAT-HEMOGLOBIN (test code = 14.3 G/DL 13.5-17.5 N HBP) ISTAT-HEMATOCRIT (test code = 42 % 44.0-56.0 L HCTP) ISTAT-SODIUM (test code = NAP) 135 MMOL/L 136-145 L ISTAT-POTASSIUM (test code = KP) 3.6 MMOL/L 3.5-5.1 N ISTAT-CHLORIDE (test code = CLP) 98 MMOL/L 98-107 N ISTAT GLUCOSE (test code = GLUP) 90 MG/DL 65-99 N ISTAT-BUN (test code = BUNP) 27 MG/DL 7-18 H BEDSIDE CREATININE (test code = 0.6 MG/DL 0.6-1.0 N CREATBED) TROPONIN I [id number] 15:57:00 Test Item Value Reference Range Interpretation Comments TROPONIN I RAPID 0.01 NG/ML 0.00-0.08 N 0.00 - 0.08 (test code = Normal0.09 - 0. 40 TROPIRAP) Indeterminate f or AMI 0.41 and above Compatible with AMI CHEMISTRY 8 [id number] 15:50:00 Test Item Value Reference Range Interpretation Comments IONIZED CALCIUM (test code = 1.10 mmol/L 1.13-1.32 L CAIABG) ISTAT-TCO2 VENOUS (test code = 28 MMOL/L 24-30 N TCO2VP) ISTAT-HEMOGLOBIN (test code = 13.6 G/DL 13.5-17.5 N HBP) ISTAT-HEMATOCRIT (test code = 40 % 44.0-56.0 L HCTP) ISTAT-SODIUM (test code = NAP) 134 MMOL/L 136-145 L ISTAT-POTASSIUM (test code = KP) 3.6 MMOL/L 3.5-5.1 N ISTAT-CHLORIDE (test code = CLP) 96 MMOL/L 98-107 L ISTAT GLUCOSE (test code = GLUP) 81 MG/DL 65-99 N ISTAT-BUN (test code = BUNP) 6 MG/DL 7-18 L BEDSIDE CREATININE (test code = 0.6 MG/DL 0.6-1.0 N CREATBED) - XR CHEST 1 [id number] 15:19:00 FAX: Vernon Holm [phone] Camps: ER St: REG FAX: Rodo Alberto MD [phone] Name: BART SANCHEZ [facility] : 1945 Age/S: 73/M 89a [facility] Unit #: [id number] Loc: [place], [place] [address] Phys: Rodo Euceda MD Acct: [id number] Dis Date: Status: REG ER PHONE #: [phone] Exam Date: 03/24/2019 1505 FAX #: [phone] Reason: dyspnea EXAMS: CPT CODE: [id number] XR CHEST 1 V 19086 Chest one view AP 03/24/2019 3:19 PM CLINICAL HISTORY: Dyspnea COMPARISON: 03/22/2019 LOCATION: W1 FINDINGS: The lungs are clear. Cardiomediastinal contours are within normal limits. The central pulmonary vasculature is not engorged. IMPRESSION: Unremarkable frontal chest radiograph. at 3478 Reported and signed by: YING BURTON M.D. CC: Vernon Rivera; Rodo Euceda MD Technologist: HARMAN AU, RT(R) ARRT Transcribed Date/Time/By: 03/24/2019 (4801) :[email or web address].[email or web address] Orig Print D/T: S: 03/24/2019 (4604) Automated exposure control, iterative reconstruction technique, and/oradjustment of mA and/or kV according to patient's size was utilizedfor optimum radiation dose reduction. PAGE 1 Signed ReportURINALYSIS W/O [id number] 20:38:00 Test Item Value Reference Range Interpretation Comments UA COLOR (test code = COLU) LIGHT YELLOW YELLOW UA APPEARANCE (test code = SLIGHTLY HAZY CLEAR APPU) UA GLUCOSE DIPSTICK (test code NEGATIVE NEGATIVE = DGLUU) UA BILIRUBIN DIPSTICK (test NEGATIVE NEGATIVE code = BILU) UA KETONE DIPSTICK (test code = NEGATIVE NEGATIVE KETU) UA SPECIFIC GRAVITY (test code <= 1.005 1.000-1.030 N = SGU) UA BLOOD DIPSTICK (test code = TRACE NEGATIVE A MINA) UA PH DIPSTICK (test code = 5.0 5.0-8.5 N YANN) UA PROTEIN DIPSTICK (test code NEGATIVE NEGATIVE = PROU) UA UROBILINIOGEN DIPSTICK (test 0.2 EU/DL <=1.0 EU/DL code = URO) UA NITRITE DIPSTICK (test code NEGATIVE NEGATIVE = SHIV) UA LEUKOCYTE ESTERASE DIPSTICK NEGATIVE NEGATIVE (test code = LEUU) SOURCE: URINESPECIMEN DESCRIPTION: CMCUA [id number] 20:38:00 Test Item Value Reference Range Interpretation Comments UA WBC (test code = WBCU) 0-2 0-5 UA RBC (test code = RBCU) 0-2 0-5 UA AMORPHOUS SEDIMENT (test code = OCC NONE-FEW AMORU) SOURCE: URINESPECIMEN DESCRIPTION: [facility] [place] [id number] 20:35:00 Test Item Value Reference Range Interpretation Comments TOTAL PROTEIN (test 7.4 g/dL 6.4-8.2 N code = PROT) ALBUMIN (test code = 3.7 g/dL 3.4-5.0 N ALB) GLOBULIN (test code = 3.7 gm/dL 2.3-3.5 H GLOB) ALBUMIN/GLOBULIN 1.0 1.5-2.2 L RATIO (test code = A/G) BILIRUBIN TOTAL (test 0.4 mg/dL 0.0-1.1 N code = BILT) BILIRUBIN DIRECT 0.1 mg/dL 0.05-0.3 N (test code = BILD) BILIRUBIN INDIRECT 0.3 mg/dL 0.0-0.6 N (test code = BILIND) SGOT/AST (test code = 16 U/L 15-37 N Report ing units: AST) International U nits/L SGPT/ALT (test code = 19 U/L 10-30 N Report ing units: ALT) International U nits/L ALKALINE PHOSPHATASE 100 U/L 45-117 N TOTAL (test code = ALKP) [id number] 20:35:00 Test Item Value Reference Range Interpretation Comments MAGNESIUM (test code = MAG) 1.8 mg/dL 1.5-2.1 N THYROID STIMULATING [id number] 20:35:00 Test Item Value Reference Range Interpretation Comments THYROID STIMULATING 2.78 mcgIU/mL 0.400-4.00 N Reporti ng units: HORMONE (test code = Interna tional Units/L TSH) NT PRO-BRAIN NATRIURETIC [id number] 20:35:00 Test Item Value Reference Range Interpretation Comments NT PRO-BRAIN NATRIURETIC PEPTI (test 68 pg/mL 0-125 N code = PROBNP) TROPONIN I [id number] 20:07:00 Test Item Value Reference Range Interpretation Comments TROPONIN I RAPID 0.00 NG/ML 0.00-0.08 N 0.00 - 0.08 (test code = Normal0.09 - 0. 40 TROPIRAP) Indeterminate f or AMI 0.41 and above Compatible with AMI POC LACTIC [id number] 20:07:00 Test Item Value Reference Range Interpretation Comments POC LACTIC ACID 2.19 MMOL/L 0.40-2.00 H RESULTS CALL ED TO [] (test code = POCLAC) AT 200603/22/19.NMI-MT CRITICA L VALUE READ BA CK BY NURSE AND VERIF IED BY TECH? []REFEREN CE RANGES FOR: 1) ARTERIAL SAMPLE (0.5-1.6MMOL/L) 2) SPINAL FLUID (0.6-2.2MMOL/L) PROTHROMBIN [id number] 20:04:00 Test Item Value Reference Interpretation Comments Range PROTHROMBIN TIME 10.3 SECONDS 9.9-11.6 N PATIENT (test code = PTP) INTERNATIONAL 1.00 0.93-1.2 N Recommended Th erapeutic NORMAL RATIO (test PT Ratios For Oral code = INR) AnticoagualantT herapy. CONDITION INT'L NORMALIZED PT R --------- ------ Prophylaxis of venous thrombosis 2.0 - 3.0in hig h risk medical or surgicalpatient s, treatment of venousthrombosi s, prevention of e mbolism. Prevention of r ecurrent embolism, 3.0 - 4.5or treatme nt of patients with mechanicalprost hetic heart valves. IS THE PATIENT ON ANY ANTICOAGULANTS? NTHROMBOPLASTIN TIME [id number] 20:04:00 Test Item Value Reference Range Interpretation Comments THROMBOPLASTIN TIME PARTIAL 32.2 SECONDS 23.0-32.0 H (test code = PTT) IS THE PATIENT ON ANY ANTICOAGULANTS? NCBC W/AUTO [id number] 19:49:00 Test Item Value Reference Range Interpretation Comments WHITE BLOOD CELL (test code = 8.7 K/mm3 4.8-10.8 N WBC) RED BLOOD CELL (test code = RBC) 4.07 M/mm3 4.2-5.4 L HEMOGLOBIN (test code = HGB) 13.2 gm/DL 13.5-17.5 L HEMATOCRIT (test code = HCT) 37.2 % 37.1-51.5 N MEAN CELL VOLUME (test code = 91.4 fL 81-99 N MCV) MEAN CELL HGB (test code = MCH) 32.4 pg 27-31 H MEAN CELL HGB CONCETRATION (test 35.5 gm/dL 33-37 N code = MCHC) RED CELL DISTRIBUTION WIDTH (test 13.2 % 11.5-14.5 N code = RDW) PLATELET COUNT (test code = PLT) 261 X10(3) 130-400 N MEAN PLATELET VOLUME (test code = 9.1 fL 9.4-12.4 L MPV) NEUTROPHIL % (test code = NT%) 62.5 % 51.5-79.7 N IMMATURE GRANULOCYTE % (test code 0.500 % 0.108-0.322 H = IG%) LYMPHOCYTE % (test code = LY%) 22.1 % 14-40 N MONOCYTE % (test code = MO%) 12.8 % 4.0-10.2 H EOSINOPHIL % (test code = EO%) 1.2 % 0-4.1 N BASOPHIL % (test code = BA%) 0.9 % 0.1-0.7 H NUCLEATED RBC % (test code = 0 % 0-0 N NRBC%) NEUTROPHIL # (test code = NT#) 5.4 K/mm3 2.5-8.6 N IMMATURE GRANULOCYTE # (test code 0.040 K/mm3 0.0052-0.0224 H = IG#) LYMPHOCYTE # (test code = LY#) 1.9 K/mm3 1.1-3.6 N MONOCYTE # (test code = MO#) 1.1 K/mm3 0.3-0.9 H EOSINOPHIL # (test code = EO#) 0.10 # 0.0-0.4 N BASOPHIL # (test code = BA#) 0.08 K/mm3 0.0-0.2 N NUCLEATED RBC # (test code = 0.00 K/mm3 0.00-0.20 N NRBC#) URINALYSIS W/O [id number] 19:49:00 Test Item Value Reference Range Interpretation Comments UA COLOR (test code = COLU) LIGHT YELLOW YELLOW UA APPEARANCE (test code = SLIGHTLY HAZY CLEAR APPU) UA GLUCOSE DIPSTICK (test code NEGATIVE NEGATIVE = DGLUU) UA BILIRUBIN DIPSTICK (test NEGATIVE NEGATIVE code = BILU) UA KETONE DIPSTICK (test code = NEGATIVE NEGATIVE KETU) UA SPECIFIC GRAVITY (test code <= 1.005 1.000-1.030 N = SGU) UA BLOOD DIPSTICK (test code = TRACE NEGATIVE A MINA) UA PH DIPSTICK (test code = 5.0 5.0-8.5 N YANN) UA PROTEIN DIPSTICK (test code NEGATIVE NEGATIVE = PROU) UA UROBILINIOGEN DIPSTICK (test 0.2 EU/DL <=1.0 EU/DL code = URO) UA NITRITE DIPSTICK (test code NEGATIVE NEGATIVE = SHIV) UA LEUKOCYTE ESTERASE DIPSTICK NEGATIVE NEGATIVE (test code = LEUU) SOURCE: URINESPECIMEN DESCRIPTION: [facility] [id number] 19:49:00 Test Item Value Reference Range Interpretation Comments UA WBC (test code = WBCU) 0-5 UA RBC (test code = RBCU) 0-5 SOURCE: URINESPECIMEN DESCRIPTION: CMCURINALYSIS W/O [id number] 19:49:00 Test Item Value Reference Range Interpretation Comments UA COLOR (test code = COLU) LIGHT YELLOW YELLOW UA APPEARANCE (test code = SLIGHTLY HAZY CLEAR APPU) UA GLUCOSE DIPSTICK (test code NEGATIVE NEGATIVE = DGLUU) UA BILIRUBIN DIPSTICK (test NEGATIVE NEGATIVE code = BILU) UA KETONE DIPSTICK (test code = NEGATIVE NEGATIVE KETU) UA SPECIFIC GRAVITY (test code <= 1.005 1.000-1.030 N = SGU) UA BLOOD DIPSTICK (test code = TRACE NEGATIVE A MINA) UA PH DIPSTICK (test code = 5.0 5.0-8.5 N YANN) UA PROTEIN DIPSTICK (test code NEGATIVE NEGATIVE = PROU) UA UROBILINIOGEN DIPSTICK (test 0.2 EU/DL <=1.0 EU/DL code = URO) UA NITRITE DIPSTICK (test code NEGATIVE NEGATIVE = SHIV) UA LEUKOCYTE ESTERASE DIPSTICK NEGATIVE NEGATIVE (test code = LEUU) SOURCE: URINESPECIMEN DESCRIPTION: CMCUA [id number] 19:49:00 Test Item Value Reference Range Interpretation Comments UA WBC (test code = WBCU) 0-5 UA RBC (test code = RBCU) 0-5 SOURCE: URINESPECIMEN DESCRIPTION: CMCCHEMISTRY 8 [id number] 19:48:00 Test Item Value Reference Range Interpretation Comments IONIZED CALCIUM (test code = 1.11 mmol/L 1.13-1.32 L CAIABG) ISTAT-TCO2 VENOUS (test code = 27 MMOL/L 24-30 N TCO2VP) ISTAT-HEMOGLOBIN (test code = 14.3 G/DL 13.5-17.5 N HBP) ISTAT-HEMATOCRIT (test code = 42 % 44.0-56.0 L HCTP) ISTAT-SODIUM (test code = NAP) 132 MMOL/L 136-145 L ISTAT-POTASSIUM (test code = KP) 3.4 MMOL/L 3.5-5.1 L ISTAT-CHLORIDE (test code = CLP) 92 MMOL/L 98-107 L ISTAT GLUCOSE (test code = GLUP) 77 MG/DL 65-99 N ISTAT-BUN (test code = BUNP) 11 MG/DL 7-18 N BEDSIDE CREATININE (test code = 0.8 MG/DL 0.6-1.0 N CREATBED) - XR CHEST 1 [id number] 19:36:00 FAX: Lizzie AlfordRiveraApVernon Tomi Allen [phone] Camps: ER St: REG FAX: Catarino Lopez [phone] Name: BART SANCHEZ [facility] : 1945 Age/S: 73/M 89a [facility] Unit #: [id number] Loc: [place], [place] [address] Phys: Catarino Lopez MD Acct: [id number] Dis Date: Status: REG ER PHONE #: [phone] Exam Date: 03/22/20191929 FAX #: [phone] Reason: SOB EXAMS: CPT CODE: [id number] XR CHEST 1 V 20142 AP VIEW OF T HE CHEST LOCATION: R16 CLINICAL HISTORY: Shortness of breath. COMPARISON: Chest radiograph 01/13/2017. FINDINGS: The cardiomediastinal shadow is within normal limits. The lungs are clear. No pleural fluids. No acute bony abnormality is found. IMPRESSION: Unremarkable radiographic study of the chest. at 1936 Reported and signed by: SALVADOR FLANAGAN MD CC: Vernon Rivera; Catarino oLpez MD Technologist: SHARYN HERNANDEZ RT (R)(ARRT) Transcribed Date/Time/By: 03/22/2019 (1935) :Henrique.DINO Orig Print D/T: S: 03/22/2019 (1939) Automated exposure control, iterative reconstruction technique, and/oradjustment of mA and/or kV according to patient's size was utilizedfor optimum radiation dose reduction. PAGE 1 Signed Report
--- NOTE | 2021-12-11 18:12 | RAD REPORT ---
EXAM DESCRIPTION: CT - [id number] - 12/11/2021 6:04 pm CLINICAL HISTORY: Trauma, head and neck injury. fall COMPARISON: No comparisonsNo comparisons TECHNIQUE: Axial 5 mm thick images of the head were obtained. Axial 2 mm thick images of the cervical spine were obtained with sagittal and coronal reconstruction images generated and reviewed. All CT scans are performed using dose optimization technique as appropriate and may include automated exposure control or mA/KV adjustment according to patient size. FINDINGS: CT HEAD WITHOUT CONTRAST: No acute hemorrhage, hydrocephalus or extra-axial collection is identified.Moderate chronic small ves neftali ischemic changes. The paranasal sinuses and mastoids are clear.The calvarium is intact. CT CERVICAL SPINE WITHOUT CONTRAST: No fracture or subluxation.No prevertebral soft tissues swelling is identified. Advanced emphysema. M ultilevel cervical spondylosis. Reversal of the normal cervical lordosis is likely related to underly ing degenerative changes. There are bridging osteophytes at C5-6 and C6-7 as well as partial fusion o f several the facets. IMPRESSION: No acute intracranial or cervical spine findings.
[2021-12-11 18:30] LABS: Absolute Lymphocytes (CBC) 1.5 K/uL (0.7-4.9); Lymphocytes % 19.8 % (15.3-44.8); MPV 8.3 fL (7.6-11.3)
--- NOTE | 2021-12-11 18:32 | RAD REPORT ---
EXAM DESCRIPTION: RAD - Knee Left 3 View - 12/11/2021 6:01 pm CLINICAL HISTORY: PAIN COMPARISON: No comparisons FINDINGS: No acute fracture. No malalignment. Slight medial compartment narrowing IMPRESSION: No acute osseous abnormality involving the left knee.
--- NOTE | 2021-12-11 18:32 | RAD REPORT ---
EXAM DESCRIPTION: RAD - Knee Right 3 View - 12/11/2021 6:01 pm CLINICAL HISTORY: PAIN COMPARISON: No comparisons FINDINGS/IMPRESSION: No acute fracture. No malalignment. No significant focal degenerative changes.
--- NOTE | 2021-12-11 18:33 | RAD REPORT ---
EXAM DESCRIPTION: RAD - Forearm Right - 12/11/2021 6:01 pm CLINICAL HISTORY: PAIN COMPARISON: No comparisons FINDINGS: No acute fracture. No malalignment. No significant focal degenerative changes. IMPRESSION: No acute osseous abnormality involving the right forearm.
--- NOTE | 2021-12-11 18:34 | RAD REPORT ---
EXAM DESCRIPTION: RAD - Chest Single View - 12/11/2021 6:01 pm CLINICAL HISTORY: fall COMPARISON: Chest Pa And Lat (2 Views) dated 08/10/2019 FINDINGS: Lines: None. Lungs: Mild coarsening of some of the basilar and mid lung interstitial markings. Emphysema. Pleural: No significant pleural effusions or pneumothorax. Cardiac: The heart size is within normal limits. Bones: No acute fractures. Other: IMPRESSION: Emphysema. Mild coarsening of the interstitial markings could reflect a component of mil d infection or inflammation. No consolidative pneumonia or edema.
[2021-12-11 18:40] LABS: Potassium 3.8 mmol/L (3.5-5.1); Troponin High Sensitivity 7.1 pg/mL (<58.9)
--- NOTE | 2021-12-11 19:39 | EDPHYS ---
Physician Documentation [facility] Name: Jose Garcia Age: 76 yrs Sex: Male : 1945 Arrival Date: 12/11/2021 Time: 17:35 Bed 19 Private MD: ED Physician Deejay Deras HPI: 12/11 17:37 This 76 yrs old Male presents to ER via Unassigned with complaints of fall. ms3 17:37 Details of fall: The patient fell from an upright position, while standing. Onset: The ms3 symptoms/episode began/occurred acutely. 19:39 Associated injuries: The patient sustained Skin tear of bilateral legs, right elbow. ms3 Abrasions to forehead. Severity of symptoms: At their worst the symptoms were moderate, in the emergency department the symptoms are unchanged. Historical: - Allergies: 17:38 No Known Allergies; kirby - Immunization history:: Adult Immunizations up to date. - Social history:: Smoking status: Patient denies any tobacco usage or history of. ROS: 19:39 Constitutional: Negative for fever, and chills. Neck: Negative for injury, pain, and ms3 swelling, Cardiovascular: Negative for chest pain, and palpitations. Respiratory: Negative for shortness of breath, cough, wheezing, and pleuritic chest pain, Abdomen/GI: Negative for abdominal pain, nausea, vomiting, diarrhea, and constipation, MS/Extremity: Negative for injury and deformity, Skin: multiple abrasions Exam: 17:29 ECG was reviewed by the Attending Physician. ms3 19:39 Constitutional: This is a well developed, well nourished patient who is awake, alert, ms3 and in no acute distress. 19:39 Eyes: Pupils equal round and reactive to light, extra-ocular motions intact. Lids and lashes normal. Conjunctiva and sclera are non-icteric and not injected. Periorbital areas with no swelling, redness, or edema. Neck: Trachea midline, no cervical lymphadenopathy. Supple, full range of motion without nuchal rigidity, or vertebral point tenderness. No Meningismus. Chest/axilla: Normal chest wall appearance and motion. Nontender with no deformity. Cardiovascular: Regular rate and rhythm with a normal S1 and S2. No gallops, murmurs, or rubs. Normal PMI, no JVD. No pulse deficits. Respiratory: Lungs have equal breath sounds bilaterally, clear to auscultation and percussion. No rales, rhonchi or wheezes noted. No increased work of breathing, no retractions or nasal flaring. Abdomen/GI: Soft, non-tender, with normal bowel sounds. No distension or tympany. No guarding or rebound. No evidence of tenderness throughout. Psych: Awake, alert, with orientation to person, place and time. Behavior, mood, and affect are within normal limits. 19:39 Head/face: Noted is abrasion(s), that are mild, of the forehead. 19:39 Skin: abrasions to bilateral knees, abrasion to right elbow, abrasions to forehead. Vital Signs: 17:35 BP 108 / 72; Pulse 61; Resp 18; Temp 98.0(T); Pulse Ox 100% ; Weight 72.57 kg; Height 6 kirby ft. 3 in. (190.50 cm); 18:51 BP 132 / 77; Pulse 57; Resp 18; Pulse Ox 98% on R/A; kirby 21:13 BP 134 / 71; Pulse 59; Resp 18; Pulse Ox 97% ; vc1 17:35 Body Mass Index 20.00 (72.57 kg, 190.50 cm) kirby MDM: 17:36 Patient medically screened. ms3 19:36 Differential diagnosis: abrasion, closed head injury, contusion, fracture, multiple ms3 trauma, sprain, strain. Data reviewed: vital signs, nurses notes, lab test result(s), EKG, radiologic studies, and as a result, I will admit patient. Data interpreted: card feeder: rate is 60 beats/min, rhythm is normal sinus rhythm, with no ectopy, Interpretation: normal rate, normal rhythm, Pulse oximetry: on room air is 98 %. Interpretation: normal. Test interpretation: by ED physician or midlevel provider: ECG. Counseling: I had a detailed discussion with the patient and/or guardian regarding: the historical points, exam findings, and any diagnostic results supporting the discharge/admit diagnosis, lab results, radiology results, the need for further work-up and treatment in the hospital. ED course: Discussed case with Dr Gillespie and he agrees with observation. All questions answered. Discussed plan with patient and he understands/ agrees with plan. . 12/11 17:37 Order name: Basic Metabolic Panel; Complete Time: 19:01 ms3 12/11 17:37 Order name: CBC with Diff; Complete Time: 19:01 ms3 12/11 17:37 Order name: Type And Screen ms3 12/11 17:37 Order name: Troponin HS; Complete Time: 19:01 ms3 12/11 19:53 Order name: COVID-19 SARS RT PCR (Document "Date of Onset" if Symptomatic) 2 12/11 21:16 Order name: SARS-COV-2 RT PCR EDMI 12/11 17:37 Order name: CT Head C Spine; Complete Time: 18:26 ms3 12/11 17:37 Order name: Knee Right 3 View XRAY; Complete Time: 19:01 ms3 12/11 17:37 Order name: Knee Left 3 View XRAY; Complete Time: 19:01 ms3 12/11 17:37 Order name: CXR XRAY; Complete Time: 19:01 ms3 12/11 17:37 Order name: EKG; Complete Time: 17:38 ms3 12/11 17:53 Order name: Forearm Right; Complete Time: 19:01 EDMS 12/11 21:52 Order name: ABO/RH no charge EDMS 12/11 17:37 Order name: Labs collected and sent; Complete Time: 19:33 ms3 12/11 17:37 Order name: Cardiac monitoring; Complete Time: 17:46 ms3 12/11 17:37 Order name: EKG - Nurse/Tech; Complete Time: 17:46 ms3 12/11 17:37 Order name: IV Saline Lock; Complete Time: 19:33 ms3 12/11 17:37 Order name: O2 Per Protocol; Complete Time: 17:46 ms3 12/11 17:37 Order name: O2 Sat Monitoring; Complete Time: 17:47 ms3 EC:29 Rate is 64 beats/min. Rhythm is regular. ME interval is normal. QRS interval is normal. ms3 Clinical impression: NSR with incomplete LBBB, non-specific st segment changes. Interpreted by me. Administered Medications: No medications were administered Disposition Summary: 12/11/21 19:39 Hospitalization Ordered Hospitalization Status: Observation ms3 Provider: Abraham Gillespie ms3 Location: Telemetry/MedSur (observation) ms3 Condition: Stable ms3 Problem: new ms3 Symptoms: are unchanged ms3 Bed/Room Type: Standard ms3 Room Assignment: 228(12/11/21 21:25) mw Diagnosis - Muscle weakness (generalized) ms3 - Repeated falls ms3 - abrasions ms3 Forms: - Medication Reconciliation Form ms3 - SBAR form ms3 Signatures: Dispatcher [employer] EDMS Sharron Stover RN RN mw Sims, Marcus, DO DO ms3 Au-StagerSharri RN RN kirby Corrections: (The following items were deleted from the chart) 17:53 17:38 Elbow Right 3 View+RAD.RAD.BRZ ordered. EDMS EDMS 21:25 19:39 ms3 mw
--- NOTE | 2021-12-11 19:39 | ER ---
Nurse's Notes [facility] Name: Jose Garcia Age: 76 yrs Sex: Male : 1945 Arrival Date: 12/11/2021 Time: 17:35 Bed 19 Private MD: Diagnosis: Muscle weakness (generalized);Repeated falls;abrasions Presentation: 12/11 17:35 Chief complaint: Patient states: pt tripped and fell injuring right side head, kirby bilateral knees and right elbow. unknown loc and pt is not on blood thinners. Coronavirus screen: Vaccine status: Patient reports receiving the 2nd dose of the covid vaccine. Ebola Screen: Patient denies travel to an Ebola-affected area in the 21 days before illness onset. Initial Sepsis Screen: Does the patient meet any 2 criteria? No. Patient's initial sepsis screen is negative. Does the patient have a suspected source of infection? No. Patient's initial sepsis screen is negative. Risk Assessment: Do you want to hurt yourself or someone else? Patient reports no desire to harm self or others. Onset of symptoms was December 11, 2021. 17:35 Method Of Arrival: EMS: [facility] kirby 17:35 Acuity: EZEQUIEL 3 kirby Triage Assessment: 17:38 General: Appears in no apparent distress. Behavior is calm, cooperative. Pain: kirby Complains of pain in bilateral knees and elbow. Historical: - Allergies: 17:38 No Known Allergies; kirby - Immunization history:: Adult Immunizations up to date. - Social history:: Smoking status: Patient denies any tobacco usage or history of. Screenin:42 Abuse screen: Denies threats or abuse. Denies injuries from another. Nutritional kirby screening: No deficits noted. Tuberculosis screening: No symptoms or risk factors identified. Fall Risk Gait- Weak (10 pts.). Mental Status- Overestimates/Forgets Limitations (15 pts.). Assessment: 17:41 General: Appears in no apparent distress. Behavior is calm, cooperative. Pain: Denies kirby pain. Neuro: No deficits noted. 19:32 Reassessment: Patient and/or family updated on plan of care and expected duration. Pain vc1 level reassessed. Patient is alert, oriented x 3, equal unlabored respirations, skin warm/dry/pink. Pt sitting on the side of the bed, provided with sandwich and pudding. Friend at bedside. 21:12 Reassessment: Wound care performed. vc1 21:14 Reassessment: Patient and/or family updated on plan of care and expected duration. Pain vc1 level reassessed. Patient is alert, oriented x 3, equal unlabored respirations, skin warm/dry/pink. Vital Signs: 17:35 BP 108 / 72; Pulse 61; Resp 18; Temp 98.0(T); Pulse Ox 100% ; Weight 72.57 kg; Height 6 kirby ft. 3 in. (190.50 cm); 18:51 BP 132 / 77; Pulse 57; Resp 18; Pulse Ox 98% on R/A; kirby 21:13 BP 134 / 71; Pulse 59; Resp 18; Pulse Ox 97% ; vc1 17:35 Body Mass Index 20.00 (72.57 kg, 190.50 cm) kirby ED Course: 17:35 Patient arrived in ED. ikrby 17:35 Deejay Deras DO is Attending Physician. ms3 17:38 Triage completed. kirby 17:38 Arm band placed on. kirby 17:41 Sharri Quiroz, RN is Primary Nurse. kirby 17:42 Patient has correct armband on for positive identification. Bed in low position. kirby 17:42 No provider procedures requiring assistance completed. kirby 18:03 Knee Right 3 View XRAY In Process Unspecified. EDMS 18:03 Knee Left 3 View XRAY In Process Unspecified. EDMS 18:03 CXR XRAY In Process Unspecified. EDMS 18:03 Forearm Right In Process Unspecified. EDMS 18:06 CT Head C Spine In Process Unspecified. EDMS 19:23 Inserted saline lock: 22 gauge in right forearm, using aseptic technique. vc1 19:38 Abraham Gillespie MD is Hospitalizing Provider. ms3 21:12 Wound care: to abrasion, located on right elbow, right knee and left knee was cleaned vc1 with Hibiclens, dressed with Neosporin, Kerlix, cling, Patient tolerated well. 22:13 Patient admitted, IV remains in place. vc1 Administered Medications: No medications were administered Medication: 17:46 VIS not applicable for this client. kirby Outcome: 19:39 Decision to Hospitalize by Provider. ms3 22:13 Admitted to Med/surg accompanied by tech, via stretcher, room 228, with chart, Report vc1 called to MONTSERRAT Tan 22:13 Condition: good 22:13 Instructed on the need for admit. 22:13 Patient left the ED. vc1 Signatures: Dispatcher [employer] EDMS Deejay Deras, DO ZACARIAS ms3 Ella-StagerSharri, RN RN kirby Xena Calvillo RN RN vc1
[2021-12-11 23:54] VITALS: O2SAT 95
[2021-12-12 00:16] VITALS: BMI 21.8
[2021-12-12 06:27] LABS: CKMB Creatine Kinase MB 1.9 ng/mL (1.0-3.6)
--- NOTE | 2021-12-12 09:40 | RAD REPORT ---
EXAM DESCRIPTION: MRI - Brain W/Wo Cont - 12/12/2021 9:00 am CLINICAL HISTORY: Syncope COMPARISON: Brain Wo Cont dated 07/23/2021 TECHNIQUE: Sagittal and axial T1-weighted images were obtained. Axial PD/heavily T2-weighted and T2- FLAIR images were obtained along with axial DWI/ADC mapping sequences. Coronal heavily T2 weighted s equence obtained. Axial and coronal post-contrast T1-weighted images were also obtained. A ml Multi corrie contrast following utilized. FINDINGS: No intracranial hemorrhage, mass or edema. No cortical edema or sulcal effacement identifi ed. Diffusion-weighted imaging shows a punctate 4 x 1.5 mm area of abnormal signal in the posteroinfe rior right cerebellum. There does appear to be a corresponding area of diminished signal on ADC mappi ng. Corresponding T2 signal abnormality is less definitive. No other areas of restricted diffusion se en. No other acute signal abnormality seen. Patient has moderate atrophy change for age. Ventricles a re in proportion to the amount of volume loss. Prominent cerebral white matter chronic ischemic phillips es are present. Basal ganglia, thalamus and brainstem tissues are spared any measurable disease. No e xtra-axial fluid collections. Villagomez-matter/white matter junction is preserved. Signal voids are seen as a normal finding in the major intracranial vessels. Post-contrast images show normal enhancement. No dural thickening. Mastoid air cells and paranasal sinuses are clear of acute finding. IMPRESSION: No epidural or subdural hematoma. No trauma related brain injury identifiable. Diffusion imaging shows a small punctate focus of restricted diffusion in the posteroinferior right c erebellum. This is a subtle finding but could represent a very minimal focus of acute/ subacute nonhe morrhagic CVA. Patient has as a baseline moderate severity atrophy and prominent chronic ischemic change. Ventricles are in proportion to volume loss.
[2021-12-12] MEDS: PYRIDOSTIGMINE 60 MG TABLET PO SCH ×2 (13:19→20:25)
[2021-12-12] MEDS: ASPIRIN EC 81 MG TAB PO SCH (14:48)
--- NOTE | 2021-12-12 16:03 | CON ---
Date of Consultation: 12/12/[address] Gillespie on 12/11/2021 with syncope. I saw the patient on 12/12/2021. History Of Present Illness: Mr. Garcia is a 76-year-old who was in his yard when he had a sudden episode of falling. He does not remember any symptoms before or after his syncope. He definitely w as not pre or postictal. Denied chest pain, nausea, vomiting, diaphoresis, PND, orthopnea, pedal pardeep ma, or palpitation. He is asymptomatic now. Past Medical History: Negative. Allergies: NONE. Review of Systems: Negative. Social History: Negative. Family History: Noncontributory. Physical Examination: Vital Signs: Stable. He was afebrile. He was in sinus rhythm. HEENT: Negative. Neck: Supple with no bruit. Chest: Clear. Cardiac: Revealed a regular rhythm and rate. No murmurs, gallops, or rubs. Abdomen: Benign. Extremities: Revealed no clubbing, cyanosis, or edema. Diagnostic Data: He had a negative carotid in 2019. Chest x-ray showed emphysema. Brain MRI showed [id number] atrophy and prominent chronic ischemic changes. Impression: I think Mr. Garcia's episode is most likely secondary to orthostatic hypotension. S ick sinus syndrome must be ruled out. He can go home today. I will make arrangements for him to hav e an outpatient seven-day event monitor. IKER/LYNSEY Voice ID: [id number] Report ID: [id number]
--- NOTE | 2021-12-12 17:21 | P.SSS ---
Patient History Date of Service: 12/12/21 Reason for admission: WEAK AND FALLEN TWICE History of Present Illness: BART IS 76 YEARS OLD FORMER SMOKER WHO HAS COPD AND DEMENTIA. HE DRIVES, FORGETS EVENTS, HAD FALLEN TWICE AT HOME, ONCE OUT SIDE AND ONCE INSIDE. HE IS NOT ABLE TO REMEMBER A WHOLE LOT ABOUT WHAT HAPPENED. I ASKED NURSE TO DO MRI TODAY OF BRAIN AND DO PT CONSULT AND CHECK ORTHOSTASIS. HE HAD DROP OF BP OF ABOUT 30 MM ON STANDING UP WITH BP DROPPING TO 99 SYSTOLIC. HE HAS MORE TREMORS PER NEPHEW. HE HAS A NEUROLOGIST ALREADY. WE DON'T HAVE INPATIENT NEUROLOGIST THIS WEEK. Allergies No Known Allergies Allergy (Verified 12/11/21 22:52) Home Medications: Divalproex ER [Depakote *ER] 1 tab PO DAILY 12/12/21 Donepezil HCl [Aricept] 1 tab PO DAILY 12/12/21 Gabapentin 1 tab PO TID 12/12/21 Memantine HCl [Namenda*] 1 tab PO DAILY 12/12/21 PARoxetine HCl [Paxil] 1 tab PO BID 12/12/21 - Past Medical/Surgical History Has patient received pneumonia vaccine in the past: Yes Diabetic: No -: asthma -: hip surgery -: appedectomy - Social History Smoking Status: Never smoker Alcohol use: No CD- Drugs: No Caffeine use: No Place of Residence: Home Review of Systems 10-point ROS is otherwise unremarkable General: Weakness Physical Examination - Vital Signs Temperature: 98.3 F Blood Pressure: 126/70 Pulse: 68 Respirations: 16 Pulse Ox (%): 95 - Physical Exam General: Alert, Oriented x2, Mild distress, Confused HEENT: Atraumatic, PERRLA, Mucous membr. moist/pink, EOMI, Sclerae nonicteric Respiratory: Clear to auscultation bilaterally, Diminished Cardiovascular: Normal S1 S2 Neurological: Normal speech (SLOW AND IT TAKE LONG TO EXPLAIN. HE IS ALWAYS LIKE THIS.), Normal strength at 5/5 x4 extr - Studies Laboratory Data (last 24 hrs) 12/11/21 18:00: WBC 7.5, Hgb 14.2, Hct 43.0, Plt Count 213 12/11/21 18:00: Sodium 138, Potassium 3.8, BUN 35 H, Creatinine 1.16, Glucose 62 L - Diagnosis (Problem(s)) (1) Orthostatic hypotension Current Visit: Yes Status: Acute Plan: ORAL HYDRATION. PYRIDOSTIGMINE MAY HELP. PT CONSULT HE WANTS TO GO TO REHAB, HE MAY BE FINE WITH HOMEHEALTH. TALKED TO NEPHEW. HE WILL HIRE MORE HELP. IT MAY TAKE 5 -7 DAYS FOR INSURANCE COMPANY TO ACCEPT OR REJECT REHAB. (2) Alzheimer disease Current Visit: Yes Status: Chronic Plan: DR. MARCUM IS HIS NEUROLOGIST. (3) COPD (chronic obstructive pulmonary disease) Current Visit: Yes Status: Chronic (4) Tremor Current Visit: Yes Status: Acute - Disposition Disposition: ROUTINE DISCHARGE
[2021-12-12] MEDS: DONEPEZIL HCL 5 MG TAB PO SCH (17:52)
[2021-12-12] MEDS: PARoxetine HCL 10 MG TAB PO SCH (20:26)
[2021-12-12] MEDS: GABAPENTIN 100 MG CAP PO SCH (20:26)
[2021-12-12] MEDS ORDERED: DONEPEZIL HCL 5 MG TAB PO SCH (21:00)
[2021-12-12] MEDS ORDERED: HOME MED 1 EA UNK (Paroxetine Hcl [Paxil] 20 MG Tablet) PO SCH (21:00)
[2021-12-13] MEDS: DONEPEZIL HCL 5 MG TAB PO SCH (08:57)
[2021-12-13] MEDS: GABAPENTIN 100 MG CAP PO SCH (08:57)
--- NOTE | 2021-12-13 08:57 | EKG ---
Test Date: 2021-12-11 Test Time: 17:29:00 [employer] Store General Manager: CORY MEASUREMENT RESULTS: Intervals: Rate: 64 GA: 176 QRSD: 114 QT: 404 QTc: 416 Parsons: P: 90 GA: 176 QRS: 82 T: 85 INTERPRETIVE STATEMENTS: Normal sinus rhythm Incomplete left bundle branch block Nonspecific T wave abnormality Abnormal ECG No previous ECG available for comparison Electronically Signed On 12-13-21 08:55:24 CDT by Dimas Dutton
[2021-12-13] MEDS: PARoxetine HCL 10 MG TAB PO SCH (08:58)
[2021-12-13] MEDS: ASPIRIN EC 81 MG TAB PO SCH (08:58)
[2021-12-13] MEDS: PYRIDOSTIGMINE 60 MG TABLET PO SCH (08:58)
[2021-12-13] MEDS ORDERED: HOME MED 1 EA UNK (Donepezil Hcl [Aricept] 10 MG Tablet) PO SCH (09:00)
[2021-12-13] MEDS ORDERED: MEMANTINE HCL 10 MG TABLET PO SCH (09:00)
[2021-12-13] MEDS ORDERED: DIVALPROEX ER 250 MG TAB PO SCH (09:00)
[2021-12-13 10:43] VITALS: BP 102/70; TEMP 98.1
[2021-12-13] MEDS ORDERED: PNEUMOCOCCAL VACCINE 0.5 ML IMVAC ONE (11:00)
== END 2021-12-13 14:00 | disposition home or self-care (01) ==
LOC: ER 17:28 → ERHOLD 19:45 → 2ND 22:01
PROVIDERS: ADMIT Internal Medicine; ATTEND Internal Medicine
DX: I95.1 Orthostatic hypotension (principal); S80.812A Abrasion, left lower leg, initial encounter; S80.811A Abrasion, right lower leg, initial encounter; S00.81XA Abrasion of other part of head, initial encounter; S50.311A Abrasion of right elbow, initial encounter; W19.XXXA Unspecified fall, initial encounter; G30.9 Alzheimer's disease, unspecified; F02.80 Dementia in other diseases classified elsewhere, unspecified severity, without behavioral disturbance, psychotic disturbance, mood disturbance, and anxiety; J44.9 Chronic obstructive pulmonary disease, unspecified; R25.1 Tremor, unspecified; J43.9 Emphysema, unspecified; J45.909 Unspecified asthma, uncomplicated; Z91.81 History of falling; Z79.899 Other long term (current) drug therapy; Z87.891 Personal history of nicotine dependence; Z20.822 Contact with and (suspected) exposure to COVID-19
CPT/HCPCS: 93005; 85025; 80048; 36415; 86900; 86850; 82550; 80061; 86901; 84484; 82553; 70450; 72125; 71045; 73090; 73562 ×2; 70553; 97110; 97116 ×2; 97161; 97530; 99285; U0003; A9577; G0378 ×3

== ENCOUNTER 2022-02-21 19:25 | Emergency (ER) | payer OTHER ==
--- OUTSIDE RECORDS SUMMARY | 2022-02-21 19:30 | XMS REPORT | Continuity of Care Document ---
:1945 Author Organization [facility] t Address [address] [place] [place] [address] Care Team Providers Name Role Phone RiveraAp callto E Primary Care Physician Payers Payer Name Policy Type Policy Number Effective Date Expiration Date S ource Problems This patient has no known problems. Allergies, Adverse Reactions, Alerts Allergy Allergy Status Severity Reaction(s) Onset Inactive Treating Comm ents Source Name Type Date Date Clinician No Known DA Active U 2018-06 [facility] [place] [facility] 00:00: [address] No Known DA Active U 2015-06 [facility] 0[facility] [place] [facility] 00:00: [address] Social History Social Habit Start Date Stop Date Quantity Comments Source Sex Assigned At [address] [facility] 00:[facility]00 00:00:00 [facility] Medications This patient has no known medications. Procedures This patient has no known procedures. Plan of Care Planned Activity Planned Date Details Comments Source Future Scheduled 2022-02-26 INFLUENZA VACCINE (#1) [facility] 00:[facility] [code = INFLUENZA Medical Ce nter VACCINE (#1)] Future Scheduled 2021-06-[address] [facility] 00:00:00 (12+) [code = Medical Center DEPRESSION SCREENING (12+)] Future Scheduled 2021-06-28 FALLS RISK SCREENING [facility] 00:00:00 [code = FALLS RISK Medical C enter SCREENING] Future Scheduled 2019-06-[address] [facility] 00:00:00 WELLNESS (YEAR 2 or Medical Center FIRST YEAR if no IPPE) [code = MEDICARE ANNUAL WELLNESS (YEAR 2 or FIRST YEAR if no IPPE)] Future Scheduled 2011 PNEUMOCOCCAL 65+ YRS ([address] [facility] 00:00:00 - PCV) [code = Medical Cente r PNEUMOCOCCAL 65+ YRS (1 - PCV)] Future Scheduled 1996 SHINGLES VACCINES ([address] [facility] 00:00:00 2) [code = SHINGLES Medical Center VACCINES (1 of 2)] Future Scheduled 1965 DTAP/TDAP/TD VACCINES [facility] 00:[facility]:00 (1 - Tdap) [code = Medical C enter DTAP/TDAP/TD VACCINES (1 - Tdap)] Future Scheduled 1964 HEPATITIS C SCREENING [facility] 00:00:00 [code = HEPATITIS C Medical Center SCREENING] Future Scheduled 1946-01[birth year]22 COVID-19 VACCINE (#1) [facility] 00:00:00 [code = COVID-[address] VACCINE (#1)] Future Scheduled 1946 CT Colonography (combo) [facility] 00:00:00 [code = CT Colonography [facility] (combo)] Future Scheduled 1946 Screening for malignant [facility] 00:00:00 neoplasm of colon Medical Ce nter (procedure) [code = 760979327] Future Scheduled 1946 Screening for malignant [facility] Test 00:00:00 neoplasm of colon Medical Ce nter (procedure) [code = 018676023] Future Scheduled 1946 Screening for malignant [facility] Test 00:00:00 neoplasm of colon Medical Ce nter (procedure) [code = 049373435] Future Scheduled 1946 Screening for malignant [facility] Test 00:00:00 neoplasm of colon Medical Ce nter (procedure) [code = 840228899] Future Scheduled 1945 Sigmoidoscopy [code = [facility] 00:[facility]:00 Sigmoidoscopy] [facility] Results Test Description Test Time Test Comments Results Result [facility] sherrill Comments CT, BRAIN, 2019-06-07 FINAL REPORT PATIENT WITHOUT CONTRAST 08:36:00 ID: [id number] CT, BRAIN, WITHOUT CONTRAST CLINICAL INDICATION: MCI [...] is recommended for further characterization. Signed: Jeannette Fofana MDReport Verified Date/Time: 06/07/2019 08:36:08 Reading Location: [facility] Radiology Reading Room - XR CHEST 1 V 2019-05-18 FAX: Vernon Holm 11:03:00 E [phone] Camps: [facility]: ADM FAX: Javier Vences MD Name: BART SANCHEZ [facility] : 1945 Age/S: 73/M [address] Unit #: [id number] Loc: [address] [place], [place] [address] Phys: Javier Perera MD Acct: [id number] Dis Date: Status: ADM IN PHONE #: [phone] Exam Date: 05/18/2019 1101 FAX #: [phone] Reason: SHORTNESS OF BREATH EXAMS: CPT CODE: [id number] XR CHEST 1 V 03277 Chest one view AP 05/18/2019 11:02 AM CLINICAL INDICATION: Shortness of breath COMPARISON: 05/16/2019 LOCATION: W1 IMPRESSION: There is suspected pulmonary emphysema. There is bibasilar atelectasis. Cardiomediastinal contours are within normal limits. The central pulmonary vasculature is not engorged. at 1103 Reported and signed by: YING BURTON M.D. CC: Vernon Rivera; Javier Perera MD Technologist: ZEINA RIZVIRT(R)() (ARRT) Transcribed Date/Time/By: 05/18/2019 (3583) :[email or web address] Orig Print D/T: S: 05/18/2019 (9070) Automated exposure control, iterative reconstruction technique, and/oradjustment [...] UDS PROCEDURAL CONTROL VERIFIED? YKIT LOT # [id number]. DATE 2716-61-77KPRXES [id number] 03:43:00 Test Item Value Reference Range Interpretation Comments LACTIC ACID (test code = LACT) 1.00 mmol/L 0.4-2.0 N [id number] 03:38:00 Test Item Value Reference Range Interpretation Comments AMMONIA (test code = AMM) <10 umol/L L - DUP EXTRACRANIAL [id number] 14:35:00 [facility]: [facility]: ADM Name: BART SANCHEZ [facility] : 1945 Age/S: 73/M [address] Unit #: [id number] Loc: [address] [place], [place] [address] Phys: Bryce Herzog MD Acct: [id number] Dis Date: Status: ADM IN PHONE #: [phone] Exam Date: 05/17/2019 1414 FAX #: [phone]: msc EXAMS: CPT CODE: [id number] DUP EXTRACRANIAL STEPHANIE 81629 BILATERAL CAROTID ARTERY ULTRASOUND 05/17/2019 CLINICAL INDICATION: Mental status change COMPARISON: None available LOCATION: W1 TECHNIQUE: Transcutaneous sonography of bilateral carotid systems was performed with delarosa scale, spectral,color-flow and Doppler analysis. FINDINGS: There is no remarkable atherosclerotic plaque deposition in either common, internal, or external carotid artery. Peak systolic velocities in centimeters per second are as follows: Right ICA: 61 Left ICA: 51 Right CCA: 83 Left CCA 108 Right ECA: 80 Left ECA: 90 Right ICA/CCA ratio: 0.7 Left ICA/CCA ratio: 0.5 Flow is antegrade in both vertebral arteries. IMPRESSION: No evidence for hemodynamically significant stenosis in either internal carotid artery. at 1435 Reported and signed by: YING BURTON M.D. PAGE 1 Signed Report (CONTINUED) [facility]: [facility]: ADM Name: BART SANCHEZ [facility] : 1945 Age/S: 73/M [address] Unit #: [id number] Loc: [address] [place], [place] Phys: Bryce Herzog MD Acct: [id number] Dis Date: Status: ADM IN PHONE #: [phone] Exam Date: 05/17/2019 1414 FAX #: [phone] Reason: msc EXAMS: CPT CODE: [id number] DUP EXTRACRANIAL STEPHANIE 01539 (Continued) Facility ACR Accreditation for Ultrasound - July 2011 CC: Vernon Rivera; Javier Perera MD; MD Rosenda Trammell Technologist: BRE ALDANA RDMS Transcribed Date/Time/By: 05/17/2019 (5457) : By: [email or web address] Orig Print D/T: S: 05/17/2019 (0310) PAGE 2 Signed Report- MRI BRAIN W WO [id number] 14:13:00 FAX: Vernon Holm [phone] Camps: [facility]: ADM FAX: Javier Vences MD FAX: Bryce Orta MD [phone] Name: BART SANCHEZ [facility] : 1945 Age/S: 73/M [address] Unit #: [id number] Loc: [address] [place], [place] [address] Phys: Bryce Herzog MD Acct: [id number] Dis Date: Status: ADM IN PHONE #: [phone] Exam Date: 05/17/2019 1404 FAX #: [phone]: msc EXAMS: CPT CODE: [id number] MRI BRAIN W WO CONT 37541 MRI Brain with and without contrast 05/17/2019 2:10 PM CLINICAL HISTORY: Mental status change TECHNIQUE: Multiplanar, multisequence MR imaging of the brain was performed, utilizing the [...] moderately advanced chronic microvascular ischemia in the supr atentorial white matter. There is questionable hemosiderin staining overlying the left frontal, parietal, and occipital lobes, which may reflect artifact or sequela of prior subarachnoid hemorrhage. There is generalized parenchymal volume loss. Normal appearing flow-voids are present within the major i ntracranial vascular structures. The sellar and pineal regions are normal. The craniovertebral junction is intact. The orbits, face, and skull base are without worrisome finding. IMPRESSION: 1. Motion limited examination. 2. Chronic microvascular ischemia. No acute intracranial abnormality. at 1413 Reported and signed by: YING THACKER PAGE 1 Signed Report (CONTINUED) FAX: Vernon Holm [phone] Camps: [facility]: ADM FAX: Javier Vences MD FAX: Bryce Orta MD [phone] Name: LAURABART RUDDY [facility] : 1945 Age/S: 73/M [address] Unit #: [id number] Loc: [address] [place], [place] [address] Phys: Bryce Herzog MD Acct: [id number] Dis Date: Status: ADM IN PHONE #: [phone] Exam Date: 05/17/2019 1404 FAX #: [phone] Reason: msc EXAMS: CPT CODE: [id number] MRI BRAIN W WO CONT 09593 (Continued) CC: Vernon Rivera; Javier Perera MD; MD Rosenda Trammell Technologist: Neymar Washington RT(R)(CT)(MRI)ARRT Transcribed Date/Time/By: 05/17/2019 (1415) :[email or web address] Orig Print D/T: S:05/17/2019 (2340) PAGE 2 Signed ReportVITAMIN [id number] 09:18:00 Test Item Value Reference Range Interpretation Comments VITAMIN B12 (test code = VITB12) 677 pg/mL 230-940 N C REACTIVE [id number] 09:12:00 Test Item Value Reference Range Interpretation Comments C REACTIVE PROTEIN (test code = 0.60 mg/dL 0.29-0.90 N CRP) DILANTIN (PHENYTOIN)2019-05-17 08:49:00 Test Item Value Reference Range Interpretation Comments DILANTIN (PHENYTOIN) (test code = 15.4 mcg/dL 10-20 N DIL) BASIC METABOLIC [id number] 06:24:00 Test Item Value Reference Range Interpretation [...] Kidney damage w/normal or inc reased GFR >90Stage 2: Kidney damage w /mild decrease in GFR 60 - 89Stage 3: Mode rate decrease in GFR 30 - 59Stage 4: Gilda re decrease in GFR 15 - 29Stage 5: Kidn ey failure < 15 (o r dialysis) CREATININE (test code 0.6 mg/dL 0.6-1.0 N = CREAT) CALCIUM (test code = 9.1 mg/dL 7.8-10.9 N CA) [id number] 06:24:00 Test Item Value Reference Range Interpretation Comments MAGNESIUM (test code = MAG) 2.2 mg/dL 1.5-2.1 H CBC W/AUTO [id number] 06:22:00 Test Item Value Reference Range Interpretation [...] 0.00 K/mm3 0.00-0.20 N NRBC#) BASIC METABOLIC [id number] 06:21:00 Test Item Value Reference Range Interpretation [...] code = CA) 9.1 mg/dL 7.8-10.9 N [id number] 06:21:00 Test Item Value Reference Range Interpretation Comments MAGNESIUM (test code = MAG) 2.2 mg/dL 1.5-2.1 H ARTERIAL BLOOD [id number] 18:32:00 Test Item Value Reference Range Interpretation [...] 0.2 % 0.0-1.5 N METHGB) HEPATIC FUNCTION [id number] 17:37:00 Test Item Value Reference Range Interpretation [...] 45-117 N TOTAL (test code = ALKP) [id number] 17:37:00 Test Item Value Reference Range Interpretation Comments LIPASE (test code = 242 U/L 73-393 N Reportin g units: LIP) International U nits/L NT PRO-BRAIN NATRIURETIC [id number] 17:37:00 Test Item Value Reference Range Interpretation Comments NT PRO-BRAIN NATRIURETIC PEPTI (test 94 pg/mL 0-125 N code = PROBNP) TROPONIN I [id number] 17:35:00 Test Item Value Reference Range Interpretation [...] change s in troponin levelscharacter istic of [place]. CHEMISTRY 8 [id number] 17:35:00 Test Item Value Reference Range Interpretation [...] 0.6-1.0 N CREATBED) - XR CHEST 1 [id number] 17:34:00 FAX: Vernon Holm [place] [phone] Camps: ER St: REG FAX: Catarino Lopez [phone] ---- Name: BART SANCHEZ [facility] : 1945 Age/S: 73/M [address] Unit #: [id number] Loc: [place], [place] [address] Phys: Catarino Lopez MD Acct: [id number] Dis Date: Status: REGER PHONE #: [phone] Exam Date: 05/16/2019 1706 FAX #: [phone] Reason: SOB EXAMS: CPT CODE: [id number] XR CHEST 1 V 95708 AP VIEW OF THE CHEST LOCATION: R16 CLINICAL HISTORY: Shortness of breath. COMPARISON: Chest radiograph 05/08/2019. FINDINGS: The cardiomediastinal shadow is within normallimits. Mild atherosclerotic calcifications are noted in the aortic knob. The lungs are clear. No pleural fluids. No acute bony abnormality is found. IMPRESSION: No radiographic evidence of acute cardiopulmonary disease process. at 2409 Reported and signed by: SALVADOR FLANAGAN MD CC: Vernon Rivera; Catarino Lopez MD Technologist: ZEINA RIZVIRT(R)() (ARRT) Transcribed Date/Time/By: 05/16/2019 (8034) :Merari Orig Print D/T: S: 05/16/2019 (1061) Automated exposure control, iterative reconstruction technique, and/oradjustment of mA and/or kV according to patient's size was utilizedfor optimum radiation dose reduction. PA GE 1 Signed ReportPROTHROMBIN [id number] 17:26:00 Test Item Value Reference Interpretation Comments Range PROTHROMBIN TIME 10.9 SECONDS 9.9-11.6 N PATIENT (test code = PTP) INTERNATIONAL 1.06 0.93-1.2 N Recommended Th erapeutic NORMAL RATIO (test PT Ratios For Oral code = INR) AnticoagualantT herapy. CONDITION INT'L NORMALIZED PT R --------- ------ Prophylaxis of venous thrombosis 2.0 - 3.0in high risk medic al or surgicalpatient s, treatment of venousthrombosi s, prevention of e mbolism. Prevention of r ecurrent embolism, 3.0 - 4.5or treatment of pa tients with mechanical prosthetic heart valves. IS THE PATIENT ON ANY ANTICOAGULANTS? NTHROMBOPLASTIN TIME [id number] 17:26:00 Test Item Value Reference Range Interpretation Comments THROMBOPLASTIN TIME PARTIAL 30.3 SECONDS 23.0-32.0 N (test code = PTT) IS THE PATIENT ON ANY ANTICOAGULANTS? ND-DIMER [id number] 17:26:00 Test Item Value Reference Range Interpretation Comments D-DIMER QUANT (test 0.31 mg/L 0.19-0.52 N *A resul t of greater or code = DDIMER) equal to 0.50 mg/L FEU is consideredpo sitive, a result of <0.50 is considered nega tive for DVTor PE. IS THE PATIENT ON ANY ANTICOAGULANTS? NPROTHROMBIN [id number] 17:24:00 Test Item Value Reference Interpretation Comments Range PROTHROMBIN TIME 10.9 SECONDS 9.9-11.6 N PATIENT (test code = PTP) INTERNATIONAL 1.06 0.93-1.2 N Recommended Th erapeutic NORMAL RATIO (test PT Ratios For Oral code = INR) AnticoagualantT herapy. CONDITION INT'L NORMALIZED PT R --------- ------ Prophylaxis of venous thrombosis 2.0 - 3.0in high risk medic al or surgicalpatient s, treatment of venousthrombosi s, prevention of e mbolism. Prevention of r ecurrent embolism, 3.0 - 4.5or treatment of pa tients with mechanical prosthetic heart valves. IS THE PATIENT ON ANY ANTICOAGULANTS? NTHROMBOPLASTIN TIME [id number] 17:24:00 Test Item Value Reference Range Interpretation Comments THROMBOPLASTIN TIME PARTIAL (test SECONDS 23.0-32.0 code = PTT) IS THE PATIENT ON ANY ANTICOAGULANTS? ND-DIMER [id number] 17:24:00 Test Item Value Reference Range Interpretation Comments D-DIMER QUANT (test code = DDIMER) mg/L 0.19-0.52 IS THE PATIENT ON ANY ANTICOAGULANTS? NCBC W/AUTO [id number] 17:16:00 Test Item Value Reference Range Interpretation [...] 0.00-0.20 N NRBC#) - CT CHEST W/O [id number] 20:25:00 [place]: [address]: REG [facility] 1945 [facility]S: 73[facility] [address] [facility] [id number] Loc: [place], [place] [address] Phys: Randolph Romero MD Acct: [id number] Dis Date: Status: REG ER PHONE #: [phone] Exam Date: 05/08/20192004 FAX #: [phone] Reason: SOB CTDI: DLP: Automated exposure control, iterative reconstruction technique, and/oradjustment of mA and/or kV according to patient's size was utilized fooptimum radiation dose reduction. EXAMS: CPT CODE: [id number] CT CHEST W/O CONTRAST 15647 CT chest without IV contrast INDICATION:SOB COMPARISON: 11/12/2010 TECHNIQUE: Contiguous axial images of the chest were obtained without IV contrast. Coronal and sagittal reformats were obtained. Automated [...] lobe. Additional punctate nodules are noted bilaterally. Atelectasis versus scarring is noted in the lung bases. No consolidation, pleural effusions or pneumothorax is identified. Small mediastinal lymph nodes are noted which are nonspecific. The visualized abdomen is unremarkable. Degenerative changes of the spine are noted. IMPRESSION: 1. Extensive emphysematous changesbilaterally predominantly in bilateral upper lobes. 2. 6 mm nodule in the right lower lobe and 5 mm nodule in the left lower lobe which are stable compared to prior study dated 11/12/2010. Additional punctate nodules are noted bilaterally. Recommend 6 month PAGE 1 Signed Report (CONTINUED) [facility]: [facility]: REG Name: BART SANCHEZ [facility] : 1945 Age/S: 73/M [address] [facility] Unit #: [id number] Loc: [place], [place] [address] Phys: Randolph Romero MD Acct: [id number] Dis Date: Status: REG ER PHONE #: [phone] Exam Date: 05/08/20192004 FAX #: [phone] Reason: SOB CTDI: DLP: Automated exposure control, iterative reconstruction technique, and/oradjustment of mA and/or kV according to patient's size was utilized fooptimum radiation dose reduction. EXAMS: CPT CODE:[id number] CT CHEST W/O CONTRAST 41859 (Continued) CT follow-up. 3. No consolidation. at 2024 Reported and signed by: JANELLE DAWN M.D. Facility ACR Accreditation for CT - January 2012 CC: Vernon Rivera; Randolph Romero MD Technologist: ALICIA MOSER RT(R) (ARRT) Transcribed Date/Time/By: 05/08/2019 (2024) : By: [email or web address] OrigPrint D/T: S: 05/08/2019 (2028) PAGE 2 Signed ReportNT PRO-BRAIN NATRIURETIC [id number] 19:49:00 Test Item Value Reference Range Interpretation Comments NT PRO-BRAIN NATRIURETIC PEPTI 108 pg/mL 0-125 N (test code = PROBNP) CBC W/AUTO [id number] 19:45:00 Test Item Value Reference Range Interpretation [...] 0.00 K/mm3 0.00-0.20 N NRBC#) ARTERIAL BLOOD [id number] 19:27:00 Test Item Value Reference Range Interpretation [...] 0.1 % 0.0-1.5 N METHGB) TROPONIN I [id number] 19:26:00 Test Item Value Reference Range Interpretation [...] change s in troponin levelscharacter istic of [place]. CHEMISTRY 8 [id number] 19:26:00 Test Item Value Reference Range Interpretation [...] 0.6-1.0 L CREATBED) - XR CHEST 1 [id number] 19:09:00 FAX: Vernon Holm [phone] Camps: ER St: REG FAX: Randolph Weiss MD Name: BART SANCHEZ [facility] : 1945 Age/S: 73/M [address] [facility] Unit #: [id number] Loc: [place], [place] [address] Phys: Randolph Romero MD Acct: [id number] Dis Date: Status: REG ER PHONE #: Exam Date: 05/08/2019 1842 FAX #: [phone] Reason: SOB EXAMS: CPT CODE: [id number] XRCHEST 1 V 39309 Site ID: [id number] EXAMINATION: - XR CHEST 1 V. HISTORY: SOB. COMPARISON: March 31, 2019. Findings: The lungs are clear. The heart size is normal. There is no effusion or pneumothorax. The mediastinum and brook appear unremarkable. Impression: Unremarkable study. at 1909 Reported and signed by: HIMA DUBON MD CC: Vernon Rivera; Randolph Romero MD Technologist: SHARYN HERNANDEZ RT (R)(ARRT) Transcribed Date/Time/By:05/08/2019 (1908) :DayanaR.TZS Orig Print D/T: S: 05/08/2019 (1911) Automated exposure control, iterative reconstruction technique, and/oradjustment of mA and/or kV according to patient's size was utilizedfor optimum radiation dose reduction. PAGE 1 Signed ReportARTERIAL BLOOD [id number] 05:20:00 Test Item Value Reference Range Interpretation [...] 0.2 % 0.0-1.5 N METHGB) BASIC METABOLIC [id number] 19:08:00 Test Item Value Reference Range Interpretation [...] Kidney damage w/normal or inc reased GFR >90Stage 2: Kidney damage w /mild decrease in GFR 60 - 89Stage 3: Mode rate decrease in GFR 30 - 59Stage 4: Gilda re decrease in GFR 15 - 29Stage 5: Kidn ey failure < 15 (o r dialysis) CREATININE (test code 0.6 mg/dL 0.6-1.0 N = CREAT) CALCIUM (test code = 9.8 mg/dL 7.8-10.9 N CA) [id number] 19:08:00 Test Item Value Reference Range Interpretation Comments MAGNESIUM (test code = MAG) 2.2 mg/dL 1.5-2.1 H NT PRO-BRAIN NATRIURETIC [id number] 19:08:00 Test Item Value Reference Range Interpretation Comments NT PRO-BRAIN NATRIURETIC PEPTI (test 43 pg/mL 0-125 N code = PROBNP) PROTHROMBIN [id number] 18:58:00 Test Item Value Reference Interpretation Comments Range PROTHROMBIN TIME 10.9 SECONDS 9.9-11.6 N PATIENT (test code = PTP) INTERNATIONAL 1.06 0.93-1.2 N Recommended Th erapeutic NORMAL RATIO (test PT Ratios For Oral code = INR) AnticoagualantT herapy. CONDITION INT'L NORMALIZED PT R --------- ------ Prophylaxis of venous thrombosis 2.0 - 3.0in high risk medic al or surgicalpatient s, treatment of venousthrombosi s, prevention of e mbolism. Prevention of r ecurrent embolism, 3.0 - 4.5or treatment of pa tients with mechanical prosthetic heart valves. IS THE PATIENT ON ANY ANTICOAGULANTS? NTHROMBOPLASTIN TIME [id number] 18:58:00 Test Item Value Reference Range Interpretation Comments THROMBOPLASTIN TIME PARTIAL 29.1 SECONDS 23.0-32.0 N (test code = PTT) IS THE PATIENT ON ANY ANTICOAGULANTS? NPROTHROMBIN [id number] 18:57:00 Test Item Value Reference Interpretation Comments Range PROTHROMBIN TIME 10.9 SECONDS 9.9-11.6 N PATIENT (test code = PTP) INTERNATIONAL 1.06 0.93-1.2 N Recommended Th erapeutic NORMAL RATIO (test PT Ratios For Oral code = INR) AnticoagualantT herapy. CONDITION INT'L NORMALIZED PT R --------- ------ Prophylaxis of venous thrombosis 2.0 - 3.0in high risk medic al or surgicalpatient s, treatment of venousthrombosi s, prevention of e mbolism. Prevention of r ecurrent embolism, 3.0 - 4.5or treatment of pa tients with mechanical prosthetic heart valves. IS THE PATIENT ON ANY ANTICOAGULANTS? NTHROMBOPLASTIN TIME [id number] 18:57:00 Test Item Value Reference Range Interpretation Comments THROMBOPLASTIN TIME PARTIAL (test SECONDS 23.0-32.0 code = PTT) IS THE PATIENT ON ANY ANTICOAGULANTS? NCBC W/AUTO [id number] 18:43:00 Test Item Value Reference Range Interpretation [...] 0.00 K/mm3 0.00-0.20 N NRBC#) TROPONIN I [id number] 18:41:00 Test Item Value Reference Range Interpretation Comments TROPONIN I RAPID 0.00 NG/ML 0.00-0.08 N 0.00 - 0.08 Normal0.09 - (test code = 0.40 Indetermin ate for TROPIRAP) AMI 0.41 and ab ove Compatible with AMI - XR CHEST 1 [id number] 18:10:00 FAX: Vernon Holm [phone] Camps: ER St: REG FAX: Sergio Sanderson DO [phone] -- Name: ROSE MARYJOHNSONBART [facility] : 1945 Age/S: 73/M [address] [facility] Unit #: [id number] Loc: [place], [place] [address] Phys: Sergio Nicole DO Acct: [id number] Dis Date: Status: REG ER PHONE #: [phone] Exam Date: 03/31/2019 3767 FAX #: [phone] Reason: SOB EXAMS: CPT CODE:[id number] XR CHEST 1 V 73947 Exam: Chest portable semierect Location: H 12 History: SOB Comparison:SOB Findings: The lungs are clear. No infiltrate [...] optimum radiation dose reduction. PAGE 1 Signed ReportCHEMISTRY 8 [id number] 18:03:00 Test Item Value Reference Range Interpretation [...] 0.6 MG/DL 0.6-1.0 N CREATBED) TROPONIN I [id number] 15:57:00 Test Item Value Reference Range Interpretation Comments TROPONIN I RAPID 0.01 NG/ML 0.00-0.08 N 0.00 - 0.08 Normal0.09 - (test code = 0.40 Indetermin ate for TROPIRAP) AMI 0.41 and ab ove Compatible with AMI CHEMISTRY 8 [id number] 15:50:00 Test Item Value Reference Range Interpretation [...] 0.6-1.0 N CREATBED) - XR CHEST 1 [id number] 15:19:00 FAX: Vernon Holm [phone] Camps: ER St: REG FAX: oRdo Alberto MD [phone] --- Name: BART SANCHEZ [facility] : 1945 Age/S: 73/M [address] Unit #: [id number] Loc:[place], [place] [address] Phys: Rodo Euceda MD Acct: [id number] Dis Date: Status: REG ER PHONE #: [phone] Exam Date: 03/24/2019 9317 FAX #: [phone] Reason: dyspnea EXAMS: CPT CODE:[id number] XR CHEST 1 V 45613 Chest one view AP 03/24/2019 3:19 PM CLINICAL HISTORY: Dyspnea COMPARISON: 03/22/2019 LOCATION: W1 FINDINGS: The lungs are clear. Cardiomediastinal contours are within normallimits. The central pulmonary vasculature is not engorged. IMPRESSION: Unremarkable frontal chest radiograph. at 151 Reported and signed by: YING BURTON M.D. CC: Vernon Rivera; Rodo Euceda MD Technologist: RT BLAINE(R) ARRT Transcribed Date/Time/By: 03/24/2019 (3835) :GeovannaTS14 Orig Print D/T: S: 03/24/2019 (3114) Automated exposure control, iterative reconstruction technique, and/oradjustment of mA and/or kV according to patient's size was utilizedfor optimum radiation dose reduction. PAGE 1 Signed ReportURINALYSIS W/O [id number] 20:38:00 Test Item Value Reference Range Interpretation [...] code = LEUU) SOURCE: URINESPECIMEN DESCRIPTION: [facility] [id number] 20:38:00 Test Item Value Reference Range Interpretation Comments UA WBC (test code = WBCU) 0-2 0-5 UA RBC (test code = RBCU) 0-2 0-5 UA AMORPHOUS SEDIMENT (test code = OCC NONE-FEW AMORU) SOURCE: URINESPECIMEN DESCRIPTION: [facility] [id number] 20:35:00 Test Item Value Reference Range Interpretation [...] 45-117 N TOTAL (test code = ALKP) [id number] 20:35:00 Test Item Value Reference Range Interpretation Comments MAGNESIUM (test code = MAG) 1.8 mg/dL 1.5-2.1 N THYROID STIMULATING [id number] 20:35:00 Test Item Value Reference Range Interpretation Comments THYROID STIMULATING 2.78 mcgIU/mL 0.400-4.00 N Reporti ng units: HORMONE (test code = Interna tional Units/L TSH) NT PRO-BRAIN NATRIURETIC [id number] 20:35:00 Test Item Value Reference Range Interpretation Comments NT PRO-BRAIN NATRIURETIC PEPTI (test 68 pg/mL 0-125 N code = PROBNP) TROPONIN I [id number] 20:07:00 Test Item Value Reference Range Interpretation Comments TROPONIN I RAPID 0.00 NG/ML 0.00-0.08 N 0.00 - 0.08 Normal0.09 - (test code = 0.40 Indetermin ate for TROPIRAP) AMI 0.41 and ab ove Compatible with AMI POC LACTIC [id number] 20:07:00 Test Item Value Reference Range Interpretation Comments POC LACTIC ACID 2.19 MMOL/L 0.40-2.00 H RESULTS CALL ED TO [] (test code = POCLAC) AT 200603/22/19.NMI-MT CRITICA L VALUE READ BA CK BY NURSE AND VERIF IED BY TECH? []REFEREN CE RANGES FOR: 1) ARTERIAL SAMPLE (0.5-1.6MMOL/L) 2) SPINAL FLUID (0.6-2.2MMOL/L) PROTHROMBIN [id number] 20:04:00 Test Item Value Reference Interpretation Comments Range PROTHROMBIN TIME 10.3 SECONDS 9.9-11.6 N PATIENT (test code = PTP) INTERNATIONAL 1.00 0.93-1.2 N Recommended Th erapeutic NORMAL RATIO (test PT Ratios For Oral code = INR) AnticoagualantT herapy. CONDITION INT' L NORMALIZED PT R --------- ------ Prophylaxis of venous thrombosis 2.0 - 3.0in high risk medic al or surgicalpatient s, treatment of venousthrombosi s, prevention of e mbolism. Prevention of r ecurrent embolism, 3.0 - 4.5or treatment of pa tients with mechanical prosthetic heart valves. IS THE PATIENT ON ANY ANTICOAGULANTS? NTHROMBOPLASTIN TIME [id number] 20:04:00 Test Item Value Reference Range Interpretation Comments THROMBOPLASTIN TIME PARTIAL 32.2 SECONDS 23.0-32.0 H (test code = PTT) IS THE PATIENT ON ANY ANTICOAGULANTS? NCBC W/AUTO [id number] 19:49:00 Test Item Value Reference Range Interpretation [...] 0.00 K/mm3 0.00-0.20 N NRBC#) URINALYSIS W/O [id number] 19:49:00 Test Item Value Reference Range Interpretation [...] (test code = LEUU) SOURCE: URINESPECIMEN DESCRIPTION: [facility] [id number] 19:49:00 Test Item Value Reference Range Interpretation Comments UA WBC (test code = WBCU) 0-5 UA RBC (test code = RBCU) 0-5 SOURCE: URINESPECIMEN DESCRIPTION: [facility]O [id number] 19:49:00 Test Item Value Reference Range Interpretation [...] (test code = LEUU) SOURCE: URINESPECIMEN DESCRIPTION: [facility] [id number] 19:49:00 Test Item Value Reference Range Interpretation Comments UA WBC (test code = WBCU) 0-5 UA RBC (test code = RBCU) 0-5 SOURCE: URINESPECIMEN DESCRIPTION: CMCCHEMISTRY 8 [id number] 19:48:00 Test Item Value Reference Range Interpretation [...] 0.6-1.0 N CREATBED) - XR CHEST 1 [id number] 19:36:00 FAX: Vernon Holm [phone] Camps: ER St: REG FAX: Catarino Lopez [phone] ---- Name: BART SANCHEZ [facility] : 1945 Age/S: 73/M [address] Unit #: [id number] Loc: [place], [place] [address] Phys: Catarino Lopez MD Acct: [id number] Dis Date: Status: REG ER PHONE #: [phone] Exam Date: 03/22/20191929 FAX #: [phone] Reason: SOB EXAMS: CPT CODE: [id number] XR CHEST 1 V 93229 AP VIEW OF THE CHEST LOCATION: R16 CLINICAL HISTORY: Shortness of breath. COMPARISON: Chest radiograph 01/13/2017. FINDINGS: The cardiomediastinal shadow is within normal limits. The lungs are clear. No pleural fluids. No acute bony abnormality is found. IMPRESSION: Unremarkable radiographic study of the chest. at 1936 Reported and signed by: SALVADOR FLANAGAN MD CC: Vernon Rivera; Catarino Lopez MDTechnologist: SHARYN HERNANDEZ RT (R)(ARRT) Transcribed Date/Time/By: 03/22/2019 (1935) :Henrique.JSL OrigPrint D/T: S: 03/22/2019 (1938) Automated exposure control, iterative reconstruction technique, and/oradjustment of mA and/or kV according to patient's size was utilizedfor optimum radiation dose reduction. PAGE 1 Signed Report
--- NOTE | 2022-02-21 20:13 | EDPHYS ---
Physician Documentation [facility] Name: Jose Garcia Age: 76 yrs Sex: Male : 1945 Arrival Date: 02/21/2022 Time: : Bed 2 Private MD: ED Physician Edgar Cheng HPI: 02/21 20:13 This 76 yrs old Male presents to ER via EMS with complaints of altered ms. kdr 21:00 Patient has been unavailable and unreachable by the niece since the last 4 days. The kdr niece has been trying to contact him by phone over that period of time but he has not returned her calls. Today she finally went over to find out what was going on with him and found him with a friend. He is not making any sense at the time and they attributed that to possibly poor nutrition hydration. After tending to that, he still was not improving and they then brought him to the ED via EMS. Patient is currently in no acute distress in the ED vital signs are stable. Onset: The symptoms/episode began/occurred at an unknown time. Severity of symptoms: At their worst the symptoms were mild in the emergency department the symptoms are unchanged. It is unknown whether or not the patient has had similar symptoms in the past. It is unknown whether or not the patient has recently seen a physician. Historical: - Allergies: 19:30 No Known Allergies; ll3 - Immunization history:: Client reports having NOT received the Covid vaccine. - Social history:: Smoking status: Patient/guardian denies using tobacco. ROS: 21:00 Constitutional: Negative for fever, chills, and weight loss, Eyes: Negative for injury, kdr pain, redness, and discharge, Neck: Negative for injury, pain, and swelling, Cardiovascular: Negative for chest pain, palpitations, and edema, Respiratory: Negative for shortness of breath, cough, wheezing, and pleuritic chest pain, Abdomen/GI: Negative for abdominal pain, nausea, vomiting, diarrhea, and constipation, Back: Negative for injury and pain, : Negative for injury, bleeding, discharge, and swelling, MS/Extremity: Negative for injury and deformity, Skin: Negative for injury, rash, and discoloration, Psych: Negative for depression, anxiety, suicide ideation, homicidal ideation, and hallucinations, Allergy/Immunology: Negative for hives, rash, and allergies, Endocrine: Negative for neck swelling, polydipsia, polyuria, polyphagia, and marked weight changes, Hematologic/Lymphatic: Negative for swollen nodes, abnormal bleeding, and unusual bruising. 21:00 Neuro: Positive for altered mental status, Expressive aphasia, Negative for headache, seizure activity, speech changes, syncope, tinnitus, tremor, visual changes. Exam: 20:08 ECG was reviewed by the Attending Physician. kdr 21:00 Constitutional: This is a well developed, well nourished patient who is awake, alert, kdr and in no acute distress. Head/Face: Normocephalic, atraumatic. Eyes: Pupils equal round and reactive to light, extra-ocular motions intact. Lids and lashes normal. Conjunctiva and sclera are non-icteric and not injected. Cornea within normal limits. Periorbital areas with no swelling, redness, or edema. Neck: Trachea midline, no thyromegaly or masses palpated, and no cervical lymphadenopathy. Supple, full range of motion without nuchal rigidity, or vertebral point tenderness. No Meningismus. Chest/axilla: Normal chest wall appearance and motion. Nontender with no deformity. No lesions are appreciated. Cardiovascular: Regular rate and rhythm with a normal S1 and S2. No gallops, murmurs, or rubs. Normal PMI, no JVD. No pulse deficits. Respiratory: Lungs have equal breath sounds bilaterally, clear to auscultation and percussion. No rales, rhonchi or wheezes noted. No increased work of breathing, no retractions or nasal flaring. Abdomen/GI: Soft, non-tender, with normal bowel sounds. No distension or tympany. No guarding or rebound. No evidence of tenderness throughout. Vital Signs: 19:27 BP 127 / 72; Pulse 76; Resp 20; Temp 97.7(O); Pulse Ox 100% on 2 lpm NC; Weight 81.65 ll3 kg (R); 19:45 BP 127 / 72; Pulse 66; Resp 22; Pulse Ox 100% on 2 lpm NC; ll3 21:00 BP 146 / 88; Pulse 63; Resp 19; Pulse Ox 100% on 2 lpm NC; ll3 MDM: 20:12 Patient medically screened. kdr 21:03 Data reviewed: vital signs, nurses notes, lab test result(s), radiologic studies. kdr Counseling: I had a detailed discussion with the patient and/or guardian regarding: the historical points, exam findings, and any diagnostic results supporting the discharge/admit diagnosis, lab results, radiology results, the need to transfer to another facility. ED course: The patient has remained stable in the ED. He has had no new or worsening symptoms.. 02/21 19:49 Order name: Basic Metabolic Panel [facility] 02/21 19:49 Order name: CBC with Diff [facility] 02/21 19:49 Order name: NT PRO-BNP [facility] 02/21 19:49 Order name: Troponin HS [facility] 02/21 20:02 Order name: Glucose, Ancillary Testing; Complete Time: 20:58 EDMS 02/21 19:49 Order name: EKG; Complete Time: 19:49 kdr 02/21 19:49 Order name: Cardiac monitoring; Complete Time: 20:00 [facility] 02/21 19:49 Order name: EKG - Nurse/Tech; Complete Time: 20:00 [facility] 02/21 19:49 Order name: IV Saline Lock; Complete Time: 20:46 [facility] 02/21 19:49 Order name: CT Head Brain wo Cont [facility] 02/21 19:54 Order name: Head Brain Wo Cont; Complete Time: 20:58 EDMS 02/21 19:49 Order name: Labs collected and sent; Complete Time: 20:46 [facility] 02/21 19:49 Order name: O2 Per Protocol; Complete Time: 20:00 [facility] 02/21 19:49 Order name: O2 Sat Monitoring; Complete Time: 20:00 [facility] 02/21 19:49 Order name: Urine Dipstick-Ancillary (obtain specimen) kdr EC:08 Rate is 62 beats/min. Rhythm is regular, Sinus Rhythm with No ectopy. QRS Victoria is kdr Normal. Clinical impression: NSR w/ Non-specific ST/T Changes. Administered Medications: 21:14 Drug: Keppra (levETIRAcetam) 1000 mg Route: IV; Rate: calculated rate; Site: left ll3 forearm; 21:19 Follow up: Response: No adverse reaction; IV Status: Infusion continued; IV Intake: [id number] Point of Care Testing: Blood Glucose: 19:50 Blood Glucose: 125 mg/dL; ll3 Ranges: Critical Glucose Levels:Adult <50 mg/dl or >400 mg/dl <40 mg/dl or >180 mg/dl Disposition Summary: 02/21/22 20:12 Transfer Ordered Transfer Location: [facility] kdr Reason: Higher level of care kdr Condition: Critical kdr Problem: new kdr Symptoms: are unchanged kdr Accepting Physician: Sy(02/21/22 21:20) ll3 Diagnosis - Intracranial hemorrhage kdr Forms: - Medication Reconciliation Form kdr - SBAR form kdr Signatures: Dispatcher [employer] EDEdgra Long MD MD kdr Real Perez RN RN ll3 Corrections: (The following items were deleted from the chart) 20:12 Sy kdr ll3
--- NOTE | 2022-02-21 20:13 | ER ---
Nurse's Notes [facility] Name: Jose Garcia Age: 76 yrs Sex: Male : 1945 Arrival Date: 02/21/2022 Time: 19:27 Bed 2 Private MD: Diagnosis: Intracranial hemorrhage Presentation: 02/21 19:27 Chief complaint: EMS states: Toned out for AMS, EMS states PTs family hasn't been able ll3 to get a hold of the pt for a few days so today the niece when to his house to check on him, family state he hasn't been acting normal and is confused. Coronavirus screen: Vaccine status: Patient reports being unvaccinated. Ebola Screen: No symptoms or risks identified at this time. Initial Sepsis Screen: Does the patient meet any 2 criteria? Altered Mental Status. No. Patient's initial sepsis screen is negative. Does the patient have a suspected source of infection? No. Patient's initial sepsis screen is negative. Risk Assessment: Do you want to hurt yourself or someone else? Patient reports no desire to harm self or others. Onset of symptoms is unknown. 19:27 Method Of Arrival: EMS: [facility] 19:27 Acuity: EZEQUIEL 3 ll3 Triage Assessment: 19:30 General: Appears comfortable, Behavior is calm, cooperative. Pain: Denies pain. Neuro: ll3 Level of Consciousness is awake, alert, obeys commands, confused, Oriented to person, place, Reports Shakiness. Cardiovascular: Patient's skin is warm and dry. Respiratory: Respiratory effort is even, unlabored, Respiratory pattern is regular, symmetrical. Derm: Skin is pink, warm \T\ dry. Historical: - Allergies: 19:30 No Known Allergies; ll3 - Immunization history:: Client reports having NOT received the Covid vaccine. - Social history:: Smoking status: Patient/guardian denies using tobacco. Screenin:18 Abuse screen: Denies threats or abuse. Nutritional screening: No deficits noted. ll3 Tuberculosis screening: No symptoms or risk factors identified. Fall Risk No fall in past 12 months (0 pts). No secondary diagnosis (0 pts). IV access (20 points). Ambulatory Aid- None/Bed Rest/Nurse Assist (0 pts). Gait- Weak (10 pts.). Mental Status- Overestimates/Forgets Limitations (15 pts.). Total Franco Fall Scale indicates High Risk Score (45 or more points). Fall prevention measures have been instituted. Side Rails Up X 2 Placed Close to Nursing Station Family Present and informed to notify staff if the need to leave the bedside As available patient and family educated on Fall Prevention Program and Strategies. Assessment: 19:27 General: Sharron Ramesh's number [phone]. tw5 20:56 Reassessment: No changes from previously documented assessment. Patient and/or family ll3 updated on plan of care and expected duration. Pain level reassessed. Patient denies pain at this time. Vital Signs: 19:27 BP 127 / 72; Pulse 76; Resp 20; Temp 97.7(O); Pulse Ox 100% on 2 lpm NC; Weight 81.65 ll3 kg (R); 19:45 BP 127 / 72; Pulse 66; Resp 22; Pulse Ox 100% on 2 lpm NC; ll3 21:00 BP 146 / 88; Pulse 63; Resp 19; Pulse Ox 100% on 2 lpm NC; ll3 ED Course: 19:27 Patient arrived in ED. tw5 19:30 Triage completed. ll3 19:30 Arm band placed on Patient placed in an exam room, on a stretcher, on oxygen, on pulse ll3 oximetry. 19:33 Edgar Cheng MD is Attending Physician. kdr 20:12 Head Brain Wo Cont In Process Unspecified. EDMS 20:28 Initiated Pt for transfer to [facility], spoke with Emmanuel Hdz. wm 20:50 Pt accepted for transfer to [facility] Stroke Unit by Dr. Manjeet Reyes per Emmanuel Hdz. 21:18 Patient has correct armband on for positive identification. Bed in low position. Call ll3 light in reach. Side rails up X 1. Adult w/ patient. Client placed on continuous cardiac and pulse oximetry monitoring. NIBP monitoring applied. 21:18 No provider procedures requiring assistance completed. Patient transferred, IV remains ll3 in place. Administered Medications: 21:14 Drug: Keppra (levETIRAcetam) 1000 mg Route: IV; Rate: calculated rate; Site: left ll3 forearm; 21:19 Follow up: Response: No adverse reaction; IV Status: Infusion continued; IV Intake: [id number] Medication: 21:19 VIS not applicable for this client. ll3 Point of Care Testing: Blood Glucose: 19:50 Blood Glucose: 125 mg/dL; ll3 Ranges: Intake: 21:19 IV: 30ml; Total: 30ml. ll3 Outcome: 20:12 ER care complete, transfer ordered by . yelena 21:18 Transferred by helicopter to [facility], Transfer form completed. ll3 X-rays sent w/ patient. 21:18 Condition: stable 21:18 Discharge instructions given to EMS, Instructed on the need for transfer, Demonstrated understanding of instructions. 21:20 Patient left the ED. ll3 Signatures: Dispatcher [employer] EDMS Edgar Cheng MD MD kdr Marsh, Wendy wm Wood, Tiffany [facility], [place] Real Perez RN RN ll3
--- NOTE | 2022-02-21 20:25 | RAD REPORT ---
EXAM DESCRIPTION: CT - Head Brain Wo Cont - 02/21/2022 8:10 pm CLINICAL HISTORY: Mental status change, unknown cause COMPARISON: Head Brain Wo Cont dated 01/10/2022 TECHNIQUE: All CT scans are performed using dose optimization technique as appropriate and may inclu de automated exposure control or mA/KV adjustment according to patient size. FINDINGS: 3.1 cm intraparenchymal hemorrhage in the right frontal lobe/basal ganglia.Minimal right-t o-left midline shift. No hydrocephalus. Chronic small vessel ischemic changes. The paranasal sinuses and mastoids are clear. The calvarium is intact. IMPRESSION: Right frontal lobe/basal ganglia intraparenchymal hemorrhage with minimal [id number] midline shift. Discussed with Dr. Cheng by Dr. Ramírez at 2018 on 02/21/22
[2022-02-21 20:56] LABS: Absolute Lymphocytes (CBC) 1.6 K/uL (0.7-4.9); Hematocrit 40.4 % (39.6-49.0); Lymphocytes % 22.4 % (15.3-44.8); MCV 92.2 fL (80-100); RBC Red Blood Cell Count 4.39 M/uL (4.33-5.43)
[2022-02-21 21:15] LABS: Troponin High Sensitivity 22.9 pg/mL (<58.9)
[2022-02-21] MEDS ORDERED: LEVETIRACETAM 500 MG/5 ML VIAL IV ONE (21:15)
[2022-02-21] MEDS ORDERED: NA CHLORIDE 0.9% 100 ML ONE (21:15)
[2022-02-22 00:17] VITALS: O2SAT 100
[2022-02-22 00:29] VITALS: BP 127/72; TEMP 97.7
--- NOTE | 2022-02-23 10:23 | EKG ---
Test Date: 2022-02-21 Test Time: 19:59:04 Brick Paver: NITHYA MEASUREMENT RESULTS: Intervals: Rate: 62 RI: 170 QRSD: 120 QT: 424 QTc: 430 [place]: P: 83 RI: 170 QRS: 80 T: 72 INTERPRETIVE STATEMENTS: Normal sinus rhythm Incomplete left bundle branch block Borderline ECG Compared to ECG 01/10/2022 21:54:49 Left bundle-branch block now present Sinus bradycardia no longer present Electronically Signed On 02-23-22 10:20:11 CDT by Dimas Dutton
== END 2022-02-21 21:20 | disposition short-term general hospital (02) ==
LOC: ER 19:25
DX: I62.9 Nontraumatic intracranial hemorrhage, unspecified (principal)
CPT/HCPCS: 93005; 85025; 80048; 36415; 82947; 84484; 83880; 70450; 96374; 99285; J1953

== ENCOUNTER 2022-03-18 18:11 | Inpatient (IN) | payer OTHER ==
--- OUTSIDE RECORDS SUMMARY | 2022-03-18 18:16 | XMS REPORT | Continuity of Care Document ---
:1945 Author Organization [facility] t Address 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 Andre n (disorder) (disorder) Resolved Problem 02/27/2022 [facility] Asthma Asthma Problem Active 2022-02-27 Mem oria (disorder) (disorder) 22:58:16 l Active [place] Problem 02/27/2022 [facility] Dementia Dementia Problem Active 2022-02-27 Memoria (disorder) (disorder) 22:58:16 l Active [place] Problem 02/27/2022 [facility] Headache Headache Problem Active 2022-02-27 Memoria (finding) (finding) 22:58:16 l Active [place] Problem 02/27/2022 [facility] Syncope Syncope Problem Active 2022-02-27 Me moria due to due to 22:58:16 l orthostati orthostati He rmann c c hypotensio hypotensio n n (disorder) (disorder) Active Problem 02/27/2022 [facility] Unexplaine Unexplain Problem Active 2022-02-27 Memoria d falls ed falls 22:58:16 l (finding) (finding) Herm yani Active Problem 02/27/2022 [facility] Anxiety Anxiety Problem Active 2022-02-27 Me moria (finding) (finding) 22:58:16 l Active [place] Problem 02/27/2022 [facility] Tremor Tremor Problem Active 2022-02-27 Rik marci (finding) (finding) 22:58:16 l Active [place] Problem 02/27/2022 [facility] Allergies, Adverse Reactions, Alerts Allergy Allergy Status Severity Reaction(s) Onset Inactive Treating Comm ents Source Name Type Date Date Clinician No Known DA Active U 2018-06 [facility] 1[facility]19 [place] [facility] [address] [place] [address] No Known DA Active U 2015-06 [facility] 0-03 [place] [facility] 00:00: [address] Social History Social Habit Start Date Stop Date Quantity Comments Source Social History 2021-07-11 2021-07-11 [facility] 21:03:58 21:03:58 Sex Assigned At [birth year] [facility] Medications Ordered Filled Start Stop Current Ordering Indication Dosage Frequency Signature Comments Components Source Medication Medication Date Date Medication? Clinician (SIG) Name Name PARoxetine Yes 20 mg = 1 Me moria 20 mg oral 7-20 tab, PO, l tablet 21:23: BID, # 60 Andre n 00 tab, 3 Refill(s), Pharmacy: [facility][id number], 182.88, cm, 01/14/22 15:46:00 CDT, Height, 77.841, kg, 01/14/22 15:46:00 CDT, Weight fludrocorti Yes TAKE 1 Rik marci sone 0.1 mg 6-27 TABLET BY l oral tablet 20:10: MOUTH Merna nn 00 DAILY FOR ORTHOSTASI S amitriptyli Yes 10 mg = 1 M emoria ne 10 mg 5-04 tab, PO, l oral tablet 18:23: Bedtime, # Sy 00 30 tab, 2 Refill(s), Pharmacy: [facility][id number], 185.42, cm, 10/29/21 13:02:00 CDT, Height, 80.909, kg, 10/29/21 13:02:00 CDT, Weight divalproex 2021-0 Yes 250 mg = 1 M emoria sodium 250 5-04 tab, PO, l mg oral 18:21: Daily, # Andre n enteric 00 30 tab, 3 coated Refill(s), tablet Pharmacy: ([facility]) [facility] #[id number], 185.42, cm, 10/29/21 13:02:00 CDT, Height, 80.909, kg, 10/29/21 13:02:00 CDT, Weight ubrogepant 2021-0 Yes 100 mg = 1 M emoria 100 MG Oral 2-11 tab, PO, l Tablet 17:58: PRN, PRN Sy [Ubrelvy] 00 Other -See Comment, X 30 day, # 8 tab, 1 Refill(s), [id number], For Migraine. May repeat dose after 2 hours. Max dose 200 mg/ 24 hours, 182.88, cm, 08/08/21 11:49:00 OPEN WINDER, Height, 77.273, kg, 07/29... Divalproex 2021-0 Yes 500 mg = 1 M emoria Sodium 500 2-11 tab, PO, l MG Enteric 17:58: Daily, Vadim shoemaker Coated 00 30 tab, 3 Tablet Refill(s), [id number], 182.88, cm, 08/08/21 11:49:00 OPEN WINDER, Height, 77.273, kg, 08/08/21 11:49:00 OPEN WINDER, Weight 24 HR 2021-0 Yes 250 mg = 1 Memori a Divalproex 1-14 tab, PO, l Sodium 250 22:36: Daily, # Her shoemaker MG Extended 00 30 tab, 3 Release Refill(s), Tablet [id number], 185.42, cm, 07/11/21 15:37:00 OPEN WINDER, Height, 76.364, kg, 07/11/21 15:37:00 OPEN WINDER, Weight ubrogepant Yes 100 mg = 1 M emoria 100 MG Oral 1-14 tab, PO, l Tablet 22:36: PRN, PRN Sy [Ubrelvy] 00 Other -See Comment, X 30 day, # 8 tab, 1 Refill(s), Pharmacy: [facility] #[id number], For Migraine. May repeat dose after 2 hours. Max dose 200 mg/ 24 hours, 185.42, cm, 07/11/21 15:37:00 OPEN WINDER, Height, 76.364, kg, 06/28... Zinc Yes 140 mg, Memoria 1-14 PO, Daily, l 21:13: 0 Refill(s) Vitamin C 0 Yes Daily, 0 Rik marci 1-14 Refill(s) l 21:13: Sy D3 0 Yes PO, Daily, Memoria 1-14 0 l 21:12: Refill(s) [place] 00 B-Complex 0 Yes PO, Daily, Me moria 50 1-14 0 l 21:12: Refill(s) [place] 00 Vitamin A Yes 0 Memoria 1-14 Refill(s) l 21:12: [place] biotin 0 Yes PO, Daily, Memor ia 1-14 0 l 21:12: Refill(s) Magnesium Yes 1 gm, IV, Mem oria Sulfate 1-14 ONCE, 0 l 21:11: Refill(s) Ys 00 multivitami 0 Yes Daily, 0 Me moria n 1-14 Refill(s) l 21:11: [place] 00 Ipratropium 0 Yes 500 Memori a 1-14 microgram, l 21:09: NEB, QID, Sy 00 0 Refill(s) Trelegy Yes = 1 Memoria Ellipta 100 1-14 inhalation l mcg-62.5 21:09: , PO, [place] mcg-25 00 Daily, # 1 mcg/inh ea, 0 inhalation Refill(s) powder meclizine Yes 0 Memoria 25 mg oral 1-14 Refill(s) l tablet 21:07: Sy 00 gabapentin Yes 0 Memoria 100 MG Oral 1-14 Refill(s) l Capsule 21:05: Sy 00 Paroxetine Yes 0 Memoria Hydrochlori 1-14 Refill(s) l de 20 MG 21:05: Sy Oral Tablet 00 donepezil Yes 10 mg = 1 Mem oria 10 mg oral 1-14 tab, PO, l tablet 21:05: BID, 0 Sy 00 Refill(s) memantine Yes 10 mg = 1 Mem oria 10 mg oral 1-14 tab, PO, l tablet 21:05: BID, 0 [place] 00 Refill(s) Immunizations Ordered Immunization Filled Immunization Date Status Commen ts Source Name Name [id number] 2020-09-14 Completed Rik rial [id number] 00:00:00 Herm yani Hx influenza 2020-03-05 Completed [facility] vaccine-unspecified 00:00:00 Merna nn Vital Signs Vital Name Observation Time Observation Value Comments Source Systolic (mm Hg) 2022-01-14 20:10:00 Rik rial [place] Diastolic (mm Hg) 2022-01-14 20:10:00 [facility] orial [place] Heart Rate 2022-01-14 20:10:00 [facility] 2022-01-14 20:10:00 Memori al [place] Height 2022-01-14 20:10:00 182.88 cm [facility] Weight 2022-01-14 20:10:00 [facility] BMI Calculated 2022-01-14 20:10:00 Memori al [place] Systolic (mm Hg) 2021-12-22 19:18:00 Rik rial Sy Diastolic (mm Hg) 2021-12-22 19:18:00 Mem orial Sy Heart Rate 2021-12-22 19:18:00 [facility] 2021-12-22 19:18:00 Memori al Sy Height 2021-12-22 19:18:00 182.88 cm [facility] Weight 2021-12-22 19:18:00 [facility] [place] BMI Calculated 2021-12-22 19:18:00 Memori al [place] Systolic (mm Hg) 2021-10-29 18:02:00 Rik rial [place] Diastolic (mm Hg) 2021-10-29 18:02:00 Mem orial Sy Heart Rate 2021-10-29 18:02:00 [facility] Sy Respitory Rate 2021-10-29 18:02:00 Memori al [place] Height 2021-10-29 18:02:00 185.42 cm [facility] Sy Weight 2021-10-29 18:02:00 [facility] Sy BMI Calculated 2021-10-29 18:02:00 Memori al [place] Systolic (mm Hg) 2021-09-19 14:39:00 Rik rial Sy Diastolic (mm Hg) 2021-09-19 14:39:00 Mem orial [place] Heart Rate 2021-09-19 14:39:00 [facility] [place] Respitory Rate 2021-09-19 14:39:00 Memori al Sy Height 2021-09-19 14:39:00 184.15 cm [facility] Sy Weight 2021-09-19 14:39:00 [facility] Sy BMI Calculated 2021-09-19 14:39:00 Memori al [place] Systolic (mm Hg) 2021-08-08 17:37:00 Rik rial Sy Diastolic (mm Hg) 2021-08-08 17:37:00 Mem orial Sy Heart Rate 2021-08-08 17:37:00 [facility] [place] Respitory Rate 2021-08-08 17:37:00 Memori al [place] Height 2021-08-08 17:37:00 182.88 cm [facility] Sy Weight 2021-08-08 17:37:00 [facility] [place] BMI Calculated 2021-08-08 17:37:00 Memori al Sy Systolic (mm Hg) 2021-07-11 20:57:00 Rik rial Sy Diastolic (mm Hg) 2021-07-11 20:57:00 Mem orial [place] Heart Rate 2021-07-11 20:57:00 Memorial Sy Respitory Rate 2021-07-11 20:57:00 Memori al [place] Height 2021-07-11 20:57:00 185.42 cm [facility] Weight 2021-07-11 20:57:00 [facility] BMI Calculated 2021-07-11 20:57:00 Emelina Pearce Procedures Procedure Date / Time Performed Performing Clinician Candida mccartney Tonsillectomy [facility] Hip joint operations [facility] Appendix operation [facility] Plan of Care Planned Activity Planned Date Details Comments Source Future Scheduled 2022-02-26 INFLUENZA VACCINE (#1) [facility] 00:[facility]:00 [code = INFLUENZA Medical Ce nter VACCINE (#1)] Future Scheduled 2022-02-26 INFLUENZA VACCINE (#1) [facility] 00:00:00 [code = INFLUENZA Medical Ce nter VACCINE (#1)] Future Scheduled 2021-06-[address] [facility] 00:00:00 (12+) [code = Medical Center DEPRESSION SCREENING (12+)] Future Scheduled 2021-06-28 FALLS RISK SCREENING [facility] 00:00:00 [code = FALLS RISK Medical C enter SCREENING] Future Scheduled 2021-06-[address] [...] FIRST YEAR if no IPPE)] Future Scheduled 2019-06-[address] [facility] [facility] 00:00:00 WELLNESS (YEAR 2 or Medical Center FIRST YEAR if no IPPE) [code = MEDICARE ANNUAL WELLNESS (YEAR 2 or FIRST YEAR if no IPPE)] Future Scheduled 2011 PNEUMOCOCCAL 65+ YRS ([address] [facility] 00:00:00 - PCV) [code = Medical Cente r PNEUMOCOCCAL 65+ YRS (1 - PCV)] Future Scheduled 2011 PNEUMOCOCCAL 65+ YRS ([address] [facility] 00:00:00 - PCV) [code = Medical Cente r PNEUMOCOCCAL 65+ YRS (1 - PCV)] Future Scheduled 1996 SHINGLES VACCINES ([address] [facility] 00:00:00 2) [code = SHINGLES [facility] Center VACCINES (1 of 2)] Future Scheduled 1996 SHINGLES VACCINES ([address] [facility] 00:00:00 2) [code = SHINGLES Medical Center VACCINES (1 of 2)] Future Scheduled 1965 DTAP/TDAP/TD [facility]ACCINES [facility] 00:00:00 (1 - Tdap) [code = Medical C enter DTAP/TDAP/TD VACCINES (1 - Tdap)] Future Scheduled 1965 DTAP/TDAP/TD [facility]ACCINES [facility] 00:00:00 (1 - Tdap) [code = Medical C enter DTAP/TDAP/TD VACCINES (1 - Tdap)] Future Scheduled 1964 HEPATITIS C [facility]CRE[facility]ING [facility] 00:00:00 [code = HEPATITIS C Medical Center SCREENING] Future Scheduled 1964 HEPATITIS C [facility] 00:00:00 [code = HEPATITIS C Medical Center SCREENING] Future Scheduled 1946-01[birth year]22 COVID-19 VACCINE (#1) [facility] 00:00:00 [code = COVID-[address] VACCINE (#1)] Future Scheduled 1946-01-22 COVID-19 VACCINE (#1) [facility] 00:00:00 [code = COVID-[address] VACCINE (#1)] Future Scheduled 1946 CT Colonography (combo) [facility] 00:00:00 [code = CT Colonography [facility] (combo)] Future Scheduled 1946 Screening for malignant [facility] 00:00:00 neoplasm of colon Medical Ce nter (procedure) [code = 585936057] Future Scheduled 1946 Screening for malignant [facility] 00:00:00 neoplasm of colon Medical Ce nter (procedure) [code = 776510257] Future Scheduled 1946 Screening for malignant [facility] 00:00:00 neoplasm of colon Medical Ce nter (procedure) [code = 233021035] Future Scheduled 1946 Screening for malignant [facility] 00:00:00 neoplasm of colon Medical Ce nter (procedure) [code = 984101378] Future Scheduled 1945 Sigmoidoscopy [code = [facility] S[facility]oscopy] Medical Cente r Future Scheduled 1946 CT Colonography (combo) [facility] 00:00:00 [code = CT Colonography [facility] (combo)] Future Scheduled 1946 Screening for malignant [facility] 00:00:00 neoplasm of colon Medical Ce nter (procedure) [code = 689268193] Future Scheduled 1946 Screening for malignant [facility] 00:00:00 neoplasm of colon Medical Ce nter (procedure) [code = 497774399] Future Scheduled 1946 Screening for malignant [facility] 00:00:00 neoplasm of colon Medical Ce nter (procedure) [code = 833320601] Future Scheduled 1946 Screening for malignant [facility] 00:00:00 neoplasm of colon Medical Ce nter (procedure) [code = 230159695] Future Scheduled 1945 Sigmoidoscopy [facility]code = [facility] 00:[facility] S[facility]oscopy] Medical Cente r Encounters Start End Encounter Admission Attending Care Care Encounter Source Date/Time Date/Time Type Type Clinicians Facility Department ID 2022-03-11 Outpatient [facility] [id number] [place] 06:13:22 [id number] [facility] 2022-03-05 Outpatient [facility] [id number] [place] 16:43:08 [id number] [facility] 2022-03-03 Outpatient [facility] [id number] [place] 16:07:24 [id number] [facility] 2022-02-25 Outpatient [facility] [id number] [place] 07:25:40 [id number] [facility] 2022-03-24 2022-03-24 Outpatient RUTH MIRANDA [id number] Memoria 11:00:00 11:00:00 05 hugo Dan 2022-03-23 2022-03-23 Outpatient DORY, [facility] [id number] [place] 13:00:00 13:00:00 LATRICIA [facility] 2022-02-25 2022-02-25 Ambulatory nullFlavo MNA [id number] Memoria 19:15:00 19:15:00 Pre-Reg r Neurology 07 l Kannan Dan 2022-02-25 2022-02-25 Outpatient MHIE MHIE [id number] Memoria 14:15:00 14:15:00 07 hugo Dan 2022-02-25 2022-02-25 Outpatient ANGELICA CortésSCHER MISCHER [id number] 14:15:00 14:15:00 Jose 07 Иван 2022-01-14 2022-01-15 Outpatient nullFlavo MNA [id number] Memoria 20:00:00 04:59:59 r Neurology 06 l Kannan Valenciaann 2022-01-14 2022-01-14 Outpatient ANGELICA CortésSCHER MISCHER [id number] 15:00:00 23:59:59 Jose 06 Иван 2022-01-14 2022-01-14 Outpatient MHIE MHIE [id number] Memoria 15:00:00 15:00:00 06 [place] 2021-12-22 2021-12-23 Outpatient nullFlavo MNA [id number] Memoria 19:15:00 04:59:59 r Neurology 03 hugo Valenciaann 2021-12-22 2021-12-22 Outpatient ANGELICA CortésSCHER MISCHER [id number] 14:15:00 23:59:59 Jose 03 Иван 2021-12-22 2021-12-22 Outpatient MHIE MHIE [id number] Memoria 14:15:00 14:15:00 03 hugo ValenciaSy 2021-10-29 2021-10-30 Outpatient nullFlavo MNA [id number] Memoria 18:00:00 04:59:59 r Neurology 04 l Kannan Valenciaann 2021-10-29 2021-10-29 Outpatient ANGELICA CortésSCHER MISCHER [id number] 13:00:00 23:59:59 Jose 04 Иван 2021-10-29 2021-10-29 Outpatient MHIE MHIE [id number] Memoria 13:00:00 13:00:00 04 hugo ValenciaSy 2021-09-19 2021-09-20 Outpatient nullFlavo MNA [id number] Memoria 14:30:00 04:59:59 r Neurology 02 hugo Dan 2021-09-19 2021-09-19 Outpatient [facility]EL[facility]ADI[facility] [id number] 09:30:00 23:59:59 Jose 02 Иван 2021-09-19 2021-09-19 Outpatient MHIE MHIE [id number] Memoria 09:30:00 09:30:00 02 hugo Dan 2021-08-08 2021-08-09 Outpatient nullFlavo MNA [id number] Memoria 17:15:00 05:59:59 r Neurology 01 hugo Dan 2021-08-08 2021-08-08 Outpatient MooJIMCRISTINASCHMADIHA CRISTINASCHER [id number] 11:15:00 23:59:59 Jose Иван 2021-08-08 2021-08-08 Outpatient MHIE MHIE [id number] Memoria 11:15:00 11:15:00 01 hugo Dan 2021-07-11 2021-07-12 Outpatient nullFlavo MNA [id number] Memoria 21:30:00 05:59:59 r Neurology 00 hugo Dan 2021-07-11 2021-07-11 Outpatient PratiksoleJIMCRISTINASCHMADIHA [facility] [id number] 15:30:00 23:59:59 Jose 00 Иван 2021-07-11 2021-07-11 Outpatient MHIE MHIE [id number] Memoria 15:30:00 15:30:00 00 hugo Sy Results Test Description Test Time Test Comments Results Result [facility] e Comments CT, BRAIN, 2019-06-07 FINAL REPORT PATIENT WITHOUT CONTRAST 08:36:00 ID: [id number] CT, BRAIN, WITHOUT CONTRAST CLINICAL INDICATION: MCI [...] examination is recommended for further characterization. Signed: Kady Fofana MDReport Verified Date/Time: 06/07/2019 08:36:08 Reading Location: [facility] Reading Room - XR CHEST 1 V 2019-05-18 FAX: Vernon Holm 11:03:00 E M [phone] Camps: [facility]: ADM FAX: Javier Vences MD [facility] 1945 Age/S: 73/M [address] [facility] Unit #: [id number] Loc: [address] [place], [place] [address] Phys: Javier Perera MD Acct: [id number] Dis Date: Status: ADM IN PHONE #: [phone] Exam Date: 05/18/2019 1101 FAX #: [phone] Reason: SHORTNESS OF BREATH EXAMS: CPT CODE: [id number] XR CHEST 1 V 26396 Chest one view AP 05/18/2019 11:02 AM CLINICAL INDICATION: Shortness of breath COMPARISON: 05/16/2019 LOCATION: W1 IMPRESSION: There is suspected pulmonary emphysema. There is bibasilar atelectasis. Cardiomediastinal contours are within normal limits. The central pulmonary vasculature is not engorged. at 1109 Reported and signed by: YING BURTON M.D. CC: Vernon Rivera; Javier Perera MD Technologist: ZEINA RIZVIRT(R)() (ARRT) Transcribed Date/Time/By: 05/18/2019 (9663) :[email or web address] Orig Print D/T: S: 05/18/2019 (8059) Automated exposure control, iterative reconstruction technique, and/oradjustment [...] UDS PROCEDURAL CONTROL VERIFIED? YKIT LOT # [id number]. DATE 8323-90-11WBRTMA [id number] 03:43:00 Test Item Value Reference Range Interpretation Comments LACTIC ACID (test code = LACT) 1.00 mmol/L 0.4-2.0 N [id number] 03:38:00 Test Item Value Reference Range Interpretation Comments AMMONIA (test code = AMM) <10 umol/L 1132 L - DUP EXTRACRANIAL [id number] 14:35:00 [place]: [facility] [address]: ADM Name: BART SANCHEZ [facility] : 1945 Age/S: 73/M [address] [facility] Unit #: [id number] Loc: [address] [place] [address] Phys: Bryce Herzog MD Acct: [id number] Dis Date: Status: ADM IN PHONE #: [phone] Exam Date: 05/17/2019 1414 FAX #: [phone]: msc EXAMS: CPT CODE: [id number] DUP EXTRACRANIAL STEPHANIE 01050 BILATERAL CAROTID ARTERY ULTRASOUND 05/17/2019 CLINICAL INDICATION: [...] BURTON M.D. PAGE 1 Signed Report (CONTINUED) [place]: [facility] St: [facility]: [facility] 1945 Age/S: 73/M [address] Unit #: [id number] Loc: [address] [place], [place] Phys: Bryce Herzog MD Acct: [id number] Dis Date: Status: ADM IN PHONE #: [phone] ExamDate: 05/17/2019 1414 FAX #: [phone] Reason: msc EXAMS: CPT CODE: [id number] DUP EXTRACRANIAL STEPHANIE 38002 (Continued) Facility ACR Accreditation for Ultrasound - July 2011 CC: Vernon Rivera; Javier Perera MD; MD Rosenda Trammell Technologist: BRE ALDANA RDMS Transcribed Date/Time/By: 05/17/2019 (0496) : By: [email or web address] Orig Print D/T: S: 05/17/2019 (1171) PAGE 2 Signed Report- MRI BRAIN W WO [id number] 14:13:00 FAX: Vernon Holm [phone] Camps: [facility]: ADM FAX: Javier Vences MD FAX: Bryce Orta MD [phone] [facility] 1945 Age/S: 73/M [address] [facility] Unit #: [id number] Loc: [address] [place], [place] [address] Phys: Bryce Herzog MD Acct: [id number] Dis Date: Status: ADM IN PHONE #: [phone] Exam Date: 05/17/2019 1404 FAX #: [phone] Reason: msc EXAMS: CPT CODE: [id number] MRI BRAIN W WO CONT 07451 MRI Brain with and without contrast 05/17/2019 2:10 PM CLINICAL HISTORY: Mental status change TECHNIQUE: Multiplanar, multisequence MRimaging of the brain was performed, utilizing the [...] moderately advanced chronic microvascular ischemia in the sup ratentorial white matter. There is questionable hemosiderin staining [...] base are without worrisome finding. IMPRESSION: 1. Motionlimited examination. 2. Chronic microvascular ischemia. No acute intracranial abnormality. at 1413 Reported and signed by: YING BURTON M.D. PAGE 1 Signed Report (CONTINUED) FAX: Vernon Holm [phone] Camps: [facility]: ADM FAX: Javier Vences MD FAX: Bryce Orta MD [phone] [facility] 1945 Age/S: 73/M [address] [facility] Unit #: [id number] Loc: [address] [place], [place] [address] Phys: Bryce Herzog MD Acct: [id number] Dis Date: Status: ADM IN PHONE #: [phone] Exam Date: 05/17/2019 1404 FAX #: [phone] Reason: msc EXAMS: CPT CODE: [id number] MRI BRAIN W WO CONT 11930 (Continued) CC: Vernon Rivera; Javier Perera MD; MD Rosenda Trammell Technologist: Neymar Washington RT(R)(CT)(MRI)ARRT Transcribed Date/Time/By: 05/17/2019 (1413) :[email or web address] Orig Print D/T: S: 05/17/2019 (3897) PAGE 2 Signed ReportVITAMIN [id number] 09:18:00 Test Item Value Reference Range Interpretation Comments VITAMIN B12 (test code = VITB12) 677 pg/mL 230-940 N C REACTIVE [id number] 09:12:00 Test Item Value Reference Range Interpretation Comments C REACTIVE PROTEIN (test code = 0.60 mg/dL 0.29-0.90 N CRP) DILANTIN (PHENYTOIN)2019-05-17 08:49:00 Test Item Value Reference Range Interpretation Comments DILANTIN (PHENYTOIN) (test code = 15.4 mcg/dL 10-20 N DIL) BASIC METABOLIC [id number] 06:24:00 Test Item Value Reference Range Interpretation [...] code = 9.1 mg/dL 7.8-10.9 N CA) [id number] 06:24:00 Test Item Value Reference Range Interpretation Comments MAGNESIUM (test code = MAG) 2.2 mg/dL 1.5-2.1 H CBC W/AUTO [id number] 06:22:00 Test Item Value Reference Range Interpretation [...] 0.00 K/mm3 0.00-0.20 N NRBC#) BASIC METABOLIC [id number] 06:21:00 Test Item Value Reference Range Interpretation [...] code = CA) 9.1 mg/dL 7.8-10.9 N [id number] 06:21:00 Test Item Value Reference Range Interpretation Comments MAGNESIUM (test code = MAG) 2.2 mg/dL 1.5-2.1 H ARTERIAL BLOOD [id number] 18:32:00 Test Item Value Reference Range Interpretation [...] 0.2 % 0.0-1.5 N METHGB) HEPATIC FUNCTION [id number] 17:37:00 Test Item Value Reference Range Interpretation [...] 45-117 N TOTAL (test code = ALKP) [id number] 17:37:00 Test Item Value Reference Range Interpretation Comments LIPASE (test code = 242 U/L 73-393 N Reportin g units: LIP) International U nits/L NT PRO-BRAIN NATRIURETIC [id number] 17:37:00 Test Item Value Reference Range Interpretation Comments NT PRO-BRAIN NATRIURETIC PEPTI (test 94 pg/mL 0-125 N code = PROBNP) TROPONIN I [id number] 17:35:00 Test Item Value Reference Range Interpretation [...] change s in troponin levelscharacter istic of [place]. CHEMISTRY 8 [id number] 17:35:00 Test Item Value Reference Range Interpretation [...] 0.6-1.0 N CREATBED) - XR CHEST 1 [id number] 17:34:00 FAX: Vernon Holm [phone] Camps: MADI[address] St: REG FAX: Catarino Lopez [phone] ---- Name: BART SANCHEZ RUDDY [facility] : 1945 Age/S: 73/M [address] [facility] Unit #: [id number] [facility] [place] [place] [address] Phys: Catarino Lopez MD Acct: [id number] Dis Date: Status: REGER PHONE #: [phone] Exam Date: 05/16/2019 1706 FAX #: [phone] Reason: SOB EXAMS: CPT CODE: [id number] XR CHEST 1 V 68111 AP VIEW OF THE CHEST LOCATION: R16 CLINICAL HISTORY: Shortness of breath. COMPARISON: Chest radiograph 05/08/2019. FINDINGS: The cardiomediastinal shadow is within normallimits. Mild atherosclerotic calcifications are noted in the aortic knob. The lungs are clear. No pleural fluids. No acute bony abnormality is found. IMPRESSION: No radiographic evidence of acute cardiopulmonary disease process. at 3204 Reported and signed by: SALVADOR FLANAGAN MD CC: Vernon Rivera; Catarino Lopez MD Technologist: ZEINA RIZVIRT(R)() (ARRT) Transcribed Date/Time/By: 05/16/2019 (2169) :[email or web address] Orig Print D/T: S: 05/16/2019 (4901) Automated exposure control, iterative reconstruction technique, and/oradjustment of mA and/or kV according to patient's size was utilizedfor optimum radiation dose reduction. PAGE 1 Signed ReportPROTHROMBIN [id number] 17:26:00 Test Item Value Reference Interpretation Comments [...] THE PATIENT ON ANY ANTICOAGULANTS? NTHROMBOPLASTIN TIME [id number] 17:26:00 Test Item Value Reference Range Interpretation Comments THROMBOPLASTIN TIME PARTIAL 30.3 SECONDS 23.0-32.0 N (test code = PTT) IS THE PATIENT ON ANY ANTICOAGULANTS? ND-DIMER [id number] 17:26:00 Test Item Value Reference Range Interpretation Comments D-DIMER QUANT (test 0.31 mg/L 0.19-0.52 N *A resul t of greater or code = DDIMER) equal to 0.50 mg/L FEU is consideredpo sitive, a result of <0.50 is considered nega tive for DVTor PE. IS THE PATIENT ON ANY ANTICOAGULANTS? NPROTHROMBIN [id number] 17:24:00 Test Item Value Reference Interpretation Comments [...] THE PATIENT ON ANY ANTICOAGULANTS? NTHROMBOPLASTIN TIME [id number] 17:24:00 Test Item Value Reference Range Interpretation Comments THROMBOPLASTIN TIME PARTIAL (test SECONDS 23.0-32.0 code = PTT) IS THE PATIENT ON ANY ANTICOAGULANTS? ND-DIMER [id number] 17:24:00 Test Item Value Reference Range Interpretation Comments D-DIMER QUANT (test code = DDIMER) mg/L 0.19-0.52 IS THE PATIENT ON ANY ANTICOAGULANTS? NCBC W/AUTO [id number] 17:16:00 Test Item Value Reference Range Interpretation [...] 0.00-0.20 N NRBC#) - CT CHEST W/O [id number] 20:25:00 [place]: [facility] St: REG Name: BART SANCHEZ [facility] : 1945 Age/S: 73/M [address] Unit #: [id number] Loc: [place], [place] [address] Phys: Randolph Romero MD Acct: [id number] Dis Date: Status: REG ER PHONE #: [phone] Exam Date: 05/08/20192004 FAX #: [phone] Reason: SOB CTDI: DLP: Automated exposure control, iterative reconstruction technique, and/oradjustment of mA and/or kV according to patient's size was utilized fooptimum radiation dose reduction. EXAMS: CPT CODE: [id number] CT CHEST W/O CONTRAST 92771 CT chest without IV contrast INDICATION:SOB COMPARISON: [...] spine are noted. IMPRESSION: 1. Extensive emphysematous changes bilaterally predominantly in bilateral upper lobes. 2. 6 mm nodule in the right lower lobe and 5 mm nodule in the left lower lobe which are stable compared to prior study dated 11/12/2010. Additional punctate nodules are noted bilaterally. Recommend 6 month PAGE 1 Signed Report (CONTINUED) Spr[place]: [facility] [address]: REG Name: BART SANCHEZ [facility] : 1945 Age/S: 73/M [address] [facility] Unit #: [id number] Loc: [place], [place] [address] Phys: Randolph Romero MD Acct: [id number] Dis Date: Status: REG ER PHONE #: [phone] Exam Date: 05/08/20192004 FAX #: [phone] Reason: SOB CTDI: DLP: Automated exposure control, iterative reconstruction technique, and/oradjustment of mA and/or kV according to patient's size was utilized fooptimum radiation dose reduction. EXAMS: CPT CODE:[id number] CT CHEST W/O CONTRAST 18884 (Continued) CT follow-up. 3. No consolidation. at 2024 Reported and signed by: JANELLE DAWN M.D. Facility ACR Accreditation for [place] - January 2012 CC: Vernon Rivera; Randolph Romero MD Technologist: ALICIA MOSER RT(R) (ARRT) Transcribed Date/Time/By: 05/08/2019 (2024) : By: [email or web address] OrigPrint D/T: S: 05/08/2019 (2028) PAGE 2 Signed ReportNT PRO-BRAIN NATRIURETIC [id number] 19:49:00 Test Item Value Reference Range Interpretation Comments NT PRO-BRAIN NATRIURETIC PEPTI 108 pg/mL 0-125 N (test code = PROBNP) CBC W/AUTO [id number] 19:45:00 Test Item Value Reference Range Interpretation [...] 0.00 K/mm3 0.00-0.20 N NRBC#) ARTERIAL BLOOD [id number] 19:27:00 Test Item Value Reference Range Interpretation [...] 0.1 % 0.0-1.5 N METHGB) TROPONIN I [id number] 19:26:00 Test Item Value Reference Range Interpretation [...] change s in troponin levelscharacter istic of NM. CHEMISTRY 8 [id number] 19:26:00 Test Item Value Reference Range Interpretation [...] 0.6-1.0 L CREATBED) - XR CHEST 1 [id number] 19:09:00 FAX: Vernon Holm [phone] Camps: ER St: REG FAX: Randolph Weiss MD Name: FRANCESNEWTONJOHNSONBART [facility] : 1945 Age/S: 73/M [address] Unit #: [id number] Loc: [place], [place] [address] Phys: Randolph Romero MD Acct: [id number] Dis Date: Status: REG ER PHONE #: [phone] Exam Date: 05/08/2019 184 FAX #: [phone] Reason: SOB EXAMS: CPT CODE: [id number] XR CHEST 1 V 00949 Site ID: [id number] EXAMINATION: - XR CHEST 1 V. HISTORY: SOB. COMPARISON: March 31, 2019. Findings: The lungs are clear. The heart size is normal. There is no effusion or pneumothorax. Themediastinum and brook appear unremarkable. Impression: Unremarkable study. at 1909 Reported and signed by: HIMA DUBON MD CC: Vernon Rivera; Randolph Romero MD Technologist: SHARYN HERNANDEZ RT (R)(ARRT) Transcribed Date/Time/By: 05/08/2019 (1908) :Osvaldo Orig Print D/T: S: 05/08/2019 (191) Automated exposure control, iterative reconstruction technique, and/oradjustment of mA and/or kV according to patient's size was utilizedfor optimum radiation dose reduction. PAGE 1 Signed ReportARTERIAL BLOOD [id number] 05:20:00 Test Item Value Reference Range Interpretation [...] 0.2 % 0.0-1.5 N METHGB) BASIC METABOLIC [id number] 19:08:00 Test Item Value Reference Range Interpretation [...] code = 9.8 mg/dL 7.8-10.9 N CA) [id number] 19:08:00 Test Item Value Reference Range Interpretation Comments MAGNESIUM (test code = MAG) 2.2 mg/dL 1.5-2.1 H NT PRO-BRAIN NATRIURETIC [id number] 19:08:00 Test Item Value Reference Range Interpretation Comments NT PRO-BRAIN NATRIURETIC PEPTI (test 43 pg/mL 0-125 N code = PROBNP) PROTHROMBIN [id number] 18:58:00 Test Item Value Reference Interpretation Comments [...] THE PATIENT ON ANY ANTICOAGULANTS? NTHROMBOPLASTIN TIME [id number] 18:58:00 Test Item Value Reference Range Interpretation Comments THROMBOPLASTIN TIME PARTIAL 29.1 SECONDS 23.0-32.0 N (test code = PTT) IS THE PATIENT ON ANY ANTICOAGULANTS? NPROTHROMBIN [id number] 18:57:00 Test Item Value Reference Interpretation Comments [...] THE PATIENT ON ANY ANTICOAGULANTS? NTHROMBOPLASTIN TIME [id number] 18:57:00 Test Item Value Reference Range Interpretation Comments THROMBOPLASTIN TIME PARTIAL (test SECONDS 23.0-32.0 code = PTT) IS THE PATIENT ON ANY ANTICOAGULANTS? NCBC W/AUTO [id number] 18:43:00 Test Item Value Reference Range Interpretation [...] 0.00 K/mm3 0.00-0.20 N NRBC#) TROPONIN I [id number] 18:41:00 Test Item Value Reference Range Interpretation Comments TROPONIN I RAPID 0.00 NG/ML 0.00-0.08 N 0.00 - 0.08 Normal0.09 - (test code = 0.40 Indetermin ate for TROPIRAP) AMI 0.41 and ab ove Compatible with AMI - XR CHEST 1 [id number] 18:10:00 FAX: Vernon Holm [phone] Camps: ER St: REG FAX: Lizzie Sergio Nicole Allen ZACARIAS [phone] -- Name: LAURABART RUDDY [facility] : 1945 Age/S: 73/M [address] [facility] Unit #: [id number] Loc: [place], [place] [address] Phys: Sergio Nicole DO Acct: [id number] Dis Date: Status: REG ER PHONE #: [phone] Exam Date: 03/31/2019 1756 FAX #: [phone] Reason: SOB EXAMS: CPT CODE:[id number] XR CHEST 1 V 84389 Exam: Chest portable semierect Location: H 12 History: SOB Comparison: SOB Findings: The lungs are clear. No infiltrate or effusion is seen. The pulmonary vasculature is normal. The heart size is enlarged. Atherosclerosis involves the aorta. The mediastinal silhouette is un remarkable. The bony thorax is intact with degenerative changes noted. Impression: No acute disease. at 1810 Reported and signed by: LIZ DOUGLASS MD CC: Vernon Rivera; Sergio Nicole DO Technologist: ARJUN MAK, RT,(R) ARRT Transcribed Date/Time/By: 03/31/2019 (1809) :Henrique.FC Orig Print D/T: S: 03/31/2019 (1813) Automated exposure control, iterative reconstruction technique, and/oradjustment of mA and/or kV according to patient's size was utilizedfor optimum radiation dose reduction. PAGE 1 Signed ReportCHEMISTRY 8 [id number] 18:03:00 Test Item Value Reference Range Interpretation [...] 0.6 MG/DL 0.6-1.0 N CREATBED) TROPONIN I [id number] 15:57:00 Test Item Value Reference Range Interpretation Comments TROPONIN I RAPID 0.01 NG/ML 0.00-0.08 N 0.00 - 0.08 Normal0.09 - (test code = 0.40 Indetermin ate for TROPIRAP) AMI 0.41 and ab ove Compatible with AMI CHEMISTRY 8 [id number] 15:50:00 Test Item Value Reference Range Interpretation [...] 0.6-1.0 N CREATBED) - XR CHEST 1 [id number] 15:19:00 FAX: Vernon Holm [phone] Camps: ER St: REG FAX: Rodo Alberto MD [phone] --- Name: LAURABART [facility] : 1945 Age/S: 73/M [address] [facility] Unit #: [id number] Loc:[place], [place] [address] Phys: Rodo Euceda MD Acct: [id number] Dis Date: Status: REG ER PHONE #: [phone] Exam Date: 03/24/2019 1505 FAX #: [phone] Reason: dyspnea EXAMS: CPT CODE: [id number] XR CHEST 1 V 92696 Chest one view AP 03/24/2019 3:19 PM CLINICAL HISTORY: Dyspnea COMPARISON: 03/22/2019 LOCATION: W1 FINDINGS: The lungs are clear. Cardiomediastinal contours are within normal limits. The central pulmonary vasculature is not engorged. IMPRESSION: Unremarkable frontal chest radiograph. at 3837 Reported and signed by: YING BURTON M.D. CC: Vernon Rivera; Rodo Euceda MD Technologist: HARMAN AU, RT(R) ARRT Transcribed Date/Time/By: 03/24/2019 (1066) :[email or web address] Orig Print D/T: S: 03/24/2019 (5400) Automated exposure control, iterative reconstruction technique, and/oradjustment of mA and/or kV according to patient's size was utilizedfor optimum radiation dose reduction. PAGE 1 Signed ReportURINALYSIS W/O [id number] 20:38:00 Test Item Value Reference Range Interpretation [...] code = LEUU) SOURCE: URINESPECIMEN DESCRIPTION: CMCUA [id number] 20:38:00 Test Item Value Reference Range Interpretation Comments UA WBC (test code = WBCU) 0-2 0-5 UA RBC (test code = RBCU) 0-2 0-5 UA AMORPHOUS SEDIMENT (test code = OCC NONE-FEW AMORU) SOURCE: URINESPECIMEN DESCRIPTION: [facility] ADA[facility] FUN[facility] [id number] 20:35:00 Test Item Value Reference Range Interpretation [...] 45-117 N TOTAL (test code = ALKP) [id number] 20:35:00 Test Item Value Reference Range Interpretation Comments MAGNESIUM (test code = MAG) 1.8 mg/dL 1.5-2.1 N THYROID STIMULATING [id number] 20:35:00 Test Item Value Reference Range Interpretation Comments THYROID STIMULATING 2.78 mcgIU/mL 0.400-4.00 N Reporti ng units: HORMONE (test code = Interna tional Units/L TSH) NT PRO-BRAIN NATRIURETIC [id number] 20:35:00 Test Item Value Reference Range Interpretation Comments NT PRO-BRAIN NATRIURETIC PEPTI (test 68 pg/mL 0-125 N code = PROBNP) TROPONIN I [id number] 20:07:00 Test Item Value Reference Range Interpretation Comments TROPONIN I RAPID 0.00 NG/ML 0.00-0.08 N 0.00 - 0.08 Normal0.09 - (test code = 0.40 Indetermin ate for TROPIRAP) AMI 0.41 and ab ove Compatible with AMI POC LACTIC [id number] 20:07:00 Test Item Value Reference Range Interpretation Comments POC LACTIC ACID 2.19 MMOL/L 0.40-2.00 H RESULTS CALL ED TO [] (test code = POCLAC) AT 200603/22/19.NMI-MT CRITICA L VALUE READ BA CK BY NURSE AND VERIF IED BY TECH? []REFEREN CE RANGES FOR: 1) ARTERIAL SAMPLE (0.5-1.6MMOL/L) 2) SPINAL FLUID (0.6-2.2MMOL/L) PROTHROMBIN [id number] 20:04:00 Test Item Value Reference Interpretation Comments [...] THE PATIENT ON ANY ANTICOAGULANTS? NTHROMBOPLASTIN TIME [id number] 20:04:00 Test Item Value Reference Range Interpretation Comments THROMBOPLASTIN TIME PARTIAL 32.2 SECONDS 23.0-32.0 H (test code = PTT) IS THE PATIENT ON ANY ANTICOAGULANTS? NCBC W/AUTO [id number] 19:49:00 Test Item Value Reference Range Interpretation [...] 0.00 K/mm3 0.00-0.20 N NRBC#) URINALYSIS W/O [id number] 19:49:00 Test Item Value Reference Range Interpretation [...] code = LEUU) SOURCE: URINESPECIMEN DESCRIPTION: CMCUA [id number] 19:49:00 Test Item Value Reference Range Interpretation Comments UA WBC (test code = WBCU) 0-5 UA RBC (test code = RBCU) 0-5 SOURCE: URINESPECIMEN DESCRIPTION: [facility] ADAURINALYSIS W/O [id number] 19:49:00 Test Item Value Reference Range Interpretation [...] (test code = LEUU) SOURCE: URINESPECIMEN DESCRIPTION: [facility] [id number] 19:49:00 Test Item Value Reference Range Interpretation Comments UA WBC (test code = WBCU) 0-5 UA RBC (test code = RBCU) 0-5 SOURCE: URINESPECIMEN DESCRIPTION: [facility] ADACHEMISTRY 8 [id number] 19:48:00 Test Item Value Reference Range Interpretation [...] 0.6-1.0 N CREATBED) - XR CHEST 1 [id number] 19:36:00 FAX: Vernon Holm [phone] Camps: ER St: REG FAX: Catarino Lopez [phone] ---- Name: LAURABART [facility] : 1945 Age/S: 73/M [address] [facility] Unit #: [id number] Loc: [place], [place] [address] Phys: Catarino Lopez MD Acct: [id number] Dis Date: Status: REGER PHONE #: [phone] Exam Date: 03/22/2019 1930 FAX #: [phone] Reason: SOB EXAMS: CPT CODE: [id number] XR CHEST 1 V 88426 AP VIEW OF THE CHEST LOCATION: R16 CLINICAL HISTORY: Shortness of breath. COMPARISON: Chest radiograph 01/13/2017. FINDINGS: The cardiomediastinal shadow is within normal limits. The lungs are clear. No pleural fluids. No acute bony abnormality is found. IMPRESSION: Unremarkable radiographic study of the chest. at 1936 Reported and signed by: SALVADOR FLANAGAN MD CC: Vernon Rivera; Catarino Lopez MD Technologist: SHARYN HERNANDEZ RT (R)(ARRT) Transcribed Date/Time/By: 03/22/2019 (1935) :Henrique.JSL OrigPrint D/T: S: 03/22/2019 (1938) Automated exposure control, iterative reconstruction technique, and/oradjustment of mA and/or kV according to patient's size was utilizedfor optimum radiation dose reduction. PAGE 1 Signed Report
--- NOTE | 2022-03-18 18:58 | ER ---
Nurse's Notes [facility] Name: Jose Garcia Age: 76 yrs Sex: Male : 1945 Arrival Date: 03/18/2022 Time: 18:15 Bed 13 Private MD: Diagnosis: Syncope Near;Weakness;Dementia in other diseases classified elsewhere without behavioral disturbance;COPD/ Chronic obstructive pulmonary disease, unspecified Presentation: 03/18 18:31 Chief complaint: EMS states: pt from [facility]. has hx of cranial tw2 hemorrhage with dementia, HTN, COPD. pt was in chair, staff was moving him to dinner and staff reports he was in and out of consciousness. he was at baseline when we arrived. possibly a vasovagal episode. pt is at baseline speech is garbled since the hemorrhage. 12 lead was normal. BGL 126 mg/dL. we did notice some wheezing. given albuterol tx. Coronavirus screen: At this time, the client does not indicate any symptoms associated with coronavirus-19. Ebola Screen: Patient denies travel to an Ebola-affected area in the 21 days before illness onset. Initial Sepsis Screen: Does the patient meet any 2 criteria? No. Patient's initial sepsis screen is negative. Does the patient have a suspected source of infection? No. Patient's initial sepsis screen is negative. Risk Assessment: Do you want to hurt yourself or someone else? Patient reports no desire to harm self or others. Note provider at bedside at this time. Onset of symptoms was March 18, 2022. Care prior to arrival: Medication(s) given: Albuterol Neb x 1. 18:31 Acuity: EZEQUIEL 3 tw2 18:31 Method Of Arrival: EMS: [facility] tw2 Triage Assessment: 18:31 General: Appears in no apparent distress. Behavior is restless, uncooperative. General: tw2 pt fidgeting and biting at old band aid on finger. band aid removed and thrown away.. Pain: Unable to use pain scale. Patient appears restless. Neuro: Level of Consciousness is awake, alert, Reports na. Respiratory: Airway is patent Respiratory effort is even, unlabored, Respiratory pattern is regular, symmetrical. Musculoskeletal: Range of motion: intact in all extremities. Historical: - Allergies: 18:35 No Known Allergies; tw2 - PMHx: 18:35 Dementia; copd; Hypertensive disorder; tw2 - Immunization history:: Adult Immunizations. - Social history:: Smoking status: . - Family history:: not pertinent. Screenin:45 Fall Risk Secondary diagnosis (15 points) dementia, impaired mobility. tw2 19:11 Abuse screen: Denies threats or abuse. Nutritional screening: No deficits noted. tw2 Tuberculosis screening: No symptoms or risk factors identified. Assessment: 19:00 Reassessment: See triage assessment. vc1 19:15 Reassessment: Pt up out of bed unstable on his feet, pulling at pulse ox. placed back vc1 in bed, sitter at bedside. 20:00 Reassessment: Family friend at bed side. Pt calm and resting comfortably. vc1 21:00 Reassessment: No changes from previously documented assessment. Patient and/or family vc1 updated on plan of care and expected duration. Pain level reassessed. 22:00 Reassessment: No changes from previously documented assessment. Patient and/or family vc1 updated on plan of care and expected duration. Pain level reassessed. 23:00 Reassessment: No changes from previously documented assessment. Patient and/or family vc1 updated on plan of care and expected duration. Pain level reassessed. 23:50 Reassessment: Pt attempting to get out of bed, reoriented. Pt to go upstairs shortly. vc1 Vital Signs: 18:31 BP 114 / 89; Pulse 84; Resp 17; Temp 97.9(TE); Pulse Ox 100% on R/A; Weight 83.91 kg; tw2 Height 6 ft. 0 in. (182.88 cm); 19:00 BP 113 / 88; Pulse 106; Resp 18; Pulse Ox 97% ; vc1 20:00 BP 104 / 64; Pulse 79; Resp 18; Pulse Ox 99% ; vc1 21:00 BP 97 / 60; Pulse 85; Resp 15; Pulse Ox 99% ; vc1 22:00 BP 99 / 71; Pulse 79; Resp 20; Pulse Ox 98% on R/A; vc1 18:31 Body Mass Index 25.09 (83.91 kg, 182.88 cm) tw2 ED Course: 18:15 Patient arrived in ED. [facility] 18:23 Otoniel Connell MD is Attending Physician. [facility] 18:26 Bed in low position. Call light in reach. Side rails up X2. Pulse ox on. NIBP on. Warm tw2 blanket given. 18:35 Triage completed. tw2 18:35 Arm band placed on. tw2 18:55 Missed attempt(s): 20 gauge in right wrist. Bleeding controlled, band aid applied, tw2 catheter tip intact. Inserted saline lock: 20 gauge in right antecubital area, using aseptic technique. Blood collected. 18:56 David Harris is Hospitalizing Provider. [facility] 18:57 Lactate Sent. tw2 19:07 SARS-COV-2 RT PCR (Document "Date of Onset" if Symptomatic) Sent. tw2 20:11 Xena Calvillo, [place] is Primary Nurse. vc1 20:20 Blood Culture Adult (2) Sent. vc1 23:57 No provider procedures requiring assistance completed. Patient admitted, IV remains in vc1 place. Administered Medications: 20:10 Drug: NS 0.9% 500 ml Route: IV; Rate: bolus; Site: right wrist; vc1 20:10 Drug: SOLU-Medrol (methylPrednisoLONE) 125 mg Route: IVP; Site: right wrist; vc1 20:19 Drug: Rocephin (cefTRIAXone) 1 grams Route: IV; Rate: per protocol; Site: right wrist; vc1 20:20 Drug: Pepcid (famotidine) 20 mg Route: IVP; Site: right wrist; vc1 20:20 Drug: Xopenex (levalbuterol) 1.25 mg Route: Inhalation; vc1 Medication: 19:14 VIS not applicable for this client. tw2 Outcome: 18:58 Decision to Hospitalize by Provider. [facility] 23:57 Condition: good vc1 23:58 Admitted to Tele accompanied by nurse, via stretcher, room 420. vc1 23:58 Instructed on the need for admit. 23:58 Patient left the ED. vc1 Signatures: Otoniel Connell MD MD cha Wise, Tara, RN RN tw2 Xena Calvillo RN RN vc1 Corrections: (The following items were deleted from the chart) 18:35 18:31 Chief complaint: EMS states: pt from [facility]. has hx of tw2 cranial hemorrhage with dementia, HTN, COPD. pt was in chair, staff was moving him to dinner and staff reports he was in and out of consciousness. he was at baseline when we arrived. possibly a vasovagal episode. pt is at baseline speech is garbled since the hemorrhage. 12 lead was normal. BGL 126 mg/dL tw2 19:13 18:55 Inserted saline lock: 20 gauge in right antecubital area, using aseptic tw2 technique. Blood collected. tw2
--- NOTE | 2022-03-18 18:59 | EDPHYS ---
Physician Documentation [facility] Name: Jose Garcia Age: 76 yrs Sex: Male : 1945 Arrival Date: 03/18/2022 Time: 18:15 Bed 13 Private MD: ED Physician Otoniel Connell HPI: 03/18 18:37 This 76 yrs old Male presents to ER via EMS with complaints of Syncope. portia 18:37 The patient has experienced near-syncope, almost passed out, felt generally weak. portia Onset: The symptoms/episode began/occurred just prior to arrival. Duration: This was a single episode, that lasted 2 minute(s). Context: the episode(s) was witnessed, by the snf staff, occurred at a snf or assisted living facility. Associated injury: The patient did not suffer any apparent associated injury. Associated signs and symptoms: Pertinent positives: dizziness, lightheadedness, shortness of breath. Current symptoms: Currently, the patient is not experiencing any symptoms, the patient feels back to baseline. It is unknown whether or not the patient has had similar symptoms in the past. Historical: - Allergies: 18:35 No Known Allergies; tw2 - PMHx: 18:35 Dementia; copd; Hypertensive disorder; tw2 - Immunization history:: Adult Immunizations. - Social history:: Smoking status: . - Family history:: not pertinent. ROS: 18:37 Constitutional: Negative for fever, chills, and weight loss, Eyes: Negative for injury, portia pain, redness, and discharge, ENT: Negative for injury, pain, and discharge, Neck: Negative for injury, pain, and swelling, Cardiovascular: Negative for chest pain, palpitations, and edema, Abdomen/GI: Negative for abdominal pain, nausea, vomiting, diarrhea, and constipation, Back: Negative for injury and pain, : Negative for injury, bleeding, discharge, and swelling, MS/Extremity: Negative for injury and deformity, Skin: Negative for injury, rash, and discoloration, Psych: Negative for depression, anxiety, suicide ideation, homicidal ideation, and hallucinations, Allergy/Immunology: Negative for hives, rash, and allergies, Endocrine: Negative for neck swelling, polydipsia, polyuria, polyphagia, and marked weight changes. 18:37 Respiratory: Positive for cough, shortness of breath, at rest. wheezing, expiratory. 18:37 Neuro: Positive for dizziness, near syncope, weakness. Exam: 18:37 Constitutional: This is a well developed, well nourished patient who is awake, alert, portia and in no acute distress. Head/Face: Normocephalic, atraumatic. Eyes: Pupils equal round and reactive to light, extra-ocular motions intact. Lids and lashes normal. Conjunctiva and sclera are non-icteric and not injected. Cornea within normal limits. Periorbital areas with no swelling, redness, or edema. ENT: Nares patent. No nasal discharge, no septal abnormalities noted. Tympanic membranes are normal and external auditory canals are clear. Oropharynx with no redness, swelling, or masses, exudates, or evidence of obstruction, uvula midline. Mucous membranes moist. Neck: Trachea midline, no thyromegaly or masses palpated, and no cervical lymphadenopathy. Supple, full range of motion without nuchal rigidity, or vertebral point tenderness. No Meningismus. Chest/axilla: Normal chest wall appearance and motion. Nontender with no deformity. No lesions are appreciated. Cardiovascular: Regular rate and rhythm with a normal S1 and S2. No gallops, murmurs, or rubs. Normal PMI, no JVD. No pulse deficits. Abdomen/GI: Soft, non-tender, with normal bowel sounds. No distension or tympany. No guarding or rebound. No evidence of tenderness throughout. Back: No spinal tenderness. No costovertebral tenderness. Full range of motion. Male : Normal genitalia with no discharge or lesions. Skin: Warm, dry with normal turgor. Normal color with no rashes, no lesions, and no evidence of cellulitis. MS/ Extremity: Pulses equal, no cyanosis. Neurovascular intact. Full, normal range of motion. Psych: Awake, alert, with orientation to person, place and time. Behavior, mood, and affect are within normal limits. 18:37 Respiratory: the patient does not display signs of respiratory distress, Respirations: normal, Breath sounds: decreased breath sounds, that are mild, are scattered, rhonchi, that are mild, are scattered, stridor, is not appreciated, wheezing: expiratory 18:46 Musculoskeletal/extremity: DVT Exam: No signs of deep vein thrombosis. no pain, no portia swelling, no tenderness, negative Homans' sign noted on exam, no appreciated bluish discoloration, no erythema, no increased warmth. 18:55 ECG was reviewed by the Attending Physician. [facility] Vital Signs: 18:31 BP 114 / 89; Pulse 84; Resp 17; Temp 97.9(TE); Pulse Ox 100% on R/A; Weight 83.91 kg; tw2 Height 6 ft. 0 in. (182.88 cm); 19:00 BP 113 / 88; Pulse 106; Resp 18; Pulse Ox 97% ; vc1 20:00 BP 104 / 64; Pulse 79; Resp 18; Pulse Ox 99% ; vc1 21:00 BP 97 / 60; Pulse 85; Resp 15; Pulse Ox 99% ; vc1 22:00 BP 99 / 71; Pulse 79; Resp 20; Pulse Ox 98% on R/A; vc1 18:31 Body Mass Index 25.09 (83.91 kg, 182.88 cm) tw2 MDM: 18:15 Patient medically screened. portia 18:24 Patient medically screened. portia 18:45 Differential Diagnosis: cardiac arrhythmia, cerebrovascular accident, emotional portia response, GI bleed, idiopathic syncope, sepsis, vasovagal episode. Data reviewed: vital signs, nurses notes, EMS record, lab test result(s), EKG, radiologic studies, CT scan, plain films. Data interpreted: security monitor: rate is 84 beats/min, rhythm is regular, Pulse oximetry: on room air is 100 %. Test interpretation: by ED physician or midlevel provider: ECG, plain radiologic studies. Counseling: I had a detailed discussion with the patient and/or guardian regarding: the historical points, exam findings, and any diagnostic results supporting the discharge/admit diagnosis, lab results, radiology results, the need for further work-up and treatment in the hospital. 03/18 18: Order name: Basic Metabolic Panel; Complete Time: 21:30 [facility] 03/18 18: Order name: CBC with Diff [facility] 03/18 18: Order name: LFT's; Complete Time: 21:30 [facility] 03/18 18: Order name: Magnesium; Complete Time: 21:30 [facility] 03/18 18: Order name: NT PRO-BNP; Complete Time: 21:30 [facility] 03/18 18: Order name: PT-INR [facility] 03/18 18: Order name: Troponin HS; Complete Time: 21:30 [facility] 03/18 18:27 Order name: Lipase; Complete Time: 21:30 [facility] 03/18 18:27 Order name: Blood Culture Adult (2) [facility] 03/18 18:27 Order name: Lactate [facility] 03/18 18:27 Order name: Urine Microscopic Only [facility] 03/18 18:27 Order name: SARS-COV-2 RT PCR (Document "Date of Onset" if Symptomatic) [facility] 03/18 19:04 Order name: Valproic Acid (depakote); Complete Time: 21:30 [facility] 03/18 19:08 Order name: Protime (+INR); Complete Time: 19:09 EDAL 03/18 18:27 Order name: XRAY Chest (1 view) [facility] 03/18 18:27 Order name: EKG; Complete Time: 18:28 [facility] 03/18 18:27 Order name: Cardiac monitoring; Complete Time: 20:21 [facility] 03/18 18:27 Order name: EKG - Nurse/Tech; Complete Time: 18:57 [facility] 03/18 18:36 Order name: CT Head Brain wo Cont [facility] 03/18 19:15 Order name: CBC with Automated Diff; Complete Time: 21:30 EDMS 03/18 19:20 Order name: Lactate; Complete Time: 21:30 EDMS 03/18 19:21 Order name: RAD; Complete Time: 21:30 EDMS 03/18 19:47 Order name: SARS-COV-2 RT PCR; Complete Time: 21:30 EDMS 03/18 20:19 Order name: CT; Complete Time: 21:30 EDMS 03/18 22:11 Order name: Lactate Sepsis 2 HR Follow-up EDAL 03/18 18:27 Order name: IV Saline Lock; Complete Time: 18:57 [facility] 03/18 18:27 Order name: Labs collected and sent; Complete Time: 18:57 [facility] 03/18 18:27 Order name: O2 Per Protocol; Complete Time: 18:57 [facility] 03/18 18:27 Order name: O2 Sat Monitoring; Complete Time: 18:57 [facility] EC:55 Rate is 91 beats/min. Rhythm is regular. QRS [place] is Normal. HI interval is normal. QRS portia interval is normal. QT interval is normal. No Q waves. T waves are Normal. No ST changes noted. Clinical impression: NSR w/ Non-specific ST/T Changes and No evidence of ischemia. Interpreted by me. Reviewed by me. Administered Medications: 20:10 Drug: NS 0.9% 500 ml Route: IV; Rate: bolus; Site: right wrist; vc1 20:10 Drug: SOLU-Medrol (methylPrednisoLONE) 125 mg Route: IVP; Site: right wrist; vc1 20:19 Drug: Rocephin (cefTRIAXone) 1 grams Route: IV; Rate: per protocol; Site: right wrist; vc1 20:20 Drug: Pepcid (famotidine) 20 mg Route: IVP; Site: right wrist; vc1 20:20 Drug: Xopenex (levalbuterol) 1.25 mg Route: Inhalation; vc1 Disposition Summary: 03/18/22 18:58 Hospitalization Ordered Hospitalization Status: Observation portia Provider: David Harris cha Location: Telemetry/MedSurg (observation) portia Condition: Fair portia Problem: new portia Symptoms: have improved portia Bed/Room Type: Standard portia Room Assignment: 420(03/18/22 23:10) eb1 Diagnosis - Syncope Near portia - Weakness portia - Dementia in other diseases classified elsewhere without behavioral disturbance portia - COPD/ Chronic obstructive pulmonary disease, unspecified portia Forms: - Medication Reconciliation Form portia - SBAR form portia Signatures: Dispatcher [employer] EDOtoniel Aguiar MD MD cha Page, Corey, PA PA cp Wise, Tara RN RN tw2 Angela Romano RN RN eb1 Xena Calvillo RN RN vc1 Linda Rojas PA-C PA-C sb4 Corrections: (The following items were deleted from the chart) 23:10 18:58 portia eb1
[2022-03-18 19:07] LABS: Absolute Lymphocytes (CBC) 1.5 K/uL (0.7-4.9); Hematocrit 38.8 % (39.6-49.0); Lymphocytes % 14.1 % (15.3-44.8); MCV 91.3 fL (80-100); MPV 7.8 fL (7.6-11.3); RBC Red Blood Cell Count 4.25 M/uL (4.33-5.43)
[2022-03-18 19:08] LABS: Protime INR 1.14
--- NOTE | 2022-03-18 19:19 | RAD REPORT ---
EXAM DESCRIPTION: RAD - Chest Single View - 03/18/2022 7:07 pm CLINICAL HISTORY: COUGH Chest pain. COMPARISON: Chest Single View dated 12/11/2021; Chest Pa And Lat (2 Views) dated 08/10/2019 FINDINGS: Portable technique limits examination quality. The lungs are emphysematous. Mild linear scarring or atelectasis is present in the left base. The hea rt is normal in size. No displaced fractures. IMPRESSION: COPD.
[2022-03-18] MEDS ORDERED: NA CHLORIDE 0.9% 500 ML ONE (19:56)
[2022-03-18] MEDS ORDERED: METHYLPREDNISOLONE 125 MG INJ ONE (19:56)
[2022-03-18] MEDS ORDERED: LEVALBUTEROL 1.25 MG/3 ML NEB ONE (19:56)
[2022-03-18] MEDS ORDERED: CEFTRIAXONE 1000 MG/VIAL ONE (19:56)
[2022-03-18] MEDS ORDERED: FAMOTIDINE 20 MG/2 ML VIAL IV ONE (19:57)
[2022-03-18] MEDS ORDERED: NA CHLORIDE 0.9% 50 ML ONE (19:57)
--- NOTE | 2022-03-18 20:18 | RAD REPORT ---
EXAM DESCRIPTION: CT - Head Brain Wo Cont - 03/18/2022 7:52 pm CLINICAL HISTORY: Syncope, simple, normal neuro exam COMPARISON: Head Brain Wo Cont dated 02/21/2022; Head Brain Wo Cont dated 01/10/2022 TECHNIQUE: All CT scans are performed using dose optimization technique as appropriate and may inclu de automated exposure control or mA/KV adjustment according to patient size. FINDINGS: 3 cm area of diminished density is seen in the anterior right basal ganglia region, at the site of the prior intracranial hemorrhage.Slight hyperdensity is seen left sided frontal gyrus which could be a small amount of subarachnoid blood.There is subtle mass effect on the right frontal horn with a minimal amount of right to left midline shift. The paranasal sinuses and mastoids are clear. The calvarium is intact. IMPRESSION: Small amount of acute subarachnoid blood may be present left frontal sulcus. The previously noted right sided intracranial hemorrhage has essentially resolved.
[2022-03-18 20:39] LABS: ALT/SGPT 53 U/L (12-78); AST/SGOT 28 U/L (15-37); Albumin 3.4 g/dL (3.4-5.0); Alkaline Phosphatase 84 U/L (45-117); BUN Blood Urea Nitrogen 31 mg/dL (7-18); Bicarbonate 27 mmol/L (21-32); Bilirubin Direct 0.2 mg/dL (0-0.2); Bilirubin Total 0.5 mg/dL (0.2-1.0); Glomerular Filtration Rate 91 ml/min (=/>90); Glucose Level 110 mg/dL (74-106); Lipase 119 U/L (73-393); Magnesium 1.9 mg/dL (1.8-2.4); NT PRO-BNP 87 pg/mL (<450); Potassium 3.4 mmol/L (3.5-5.1); Protein, Total 7.6 g/dL (6.4-8.2); Sodium Level 137 mmol/L (136-145); Troponin High Sensitivity 8.6 pg/mL (<58.9)
[2022-03-18 20:52] LABS: Valproic Acid (Depakene) Level < 3.0 ug/mL (50-100)
--- NOTE | 2022-03-18 22:58 | P.HP ---
Certification for Inpatient Patient admitted to: Observation With expected LOS: <2 Midnights Patient will require the following post-hospital care: None Practitioner: I am a practitioner with admitting privileges, knowledge of patient current condition, hospital course, and medical plan of care. Services: Services provided to patient in accordance with Admission requirements found in Title 42 Section 412.3 of the Code of Federal Regulations Patient History Date of Service: 03/19/22 Reason for admission: Syncope History of Present Illness: Patient is a 76 year old male with history of dementia, hypertension, COPD/asthma who presented to the ED after syncopal episode. Patient recently moved into snf at [facility] after undergoing treatment of intracranial hemorrhage and rehab in [place]. alf reports he had a syncopal episode but by the time EMS arrived, he was awake, alert, and at his baseline mental status. Patient does have history of syncopal episodes that are followed by Dr. Cortés. His vital signs are stable in ER. Lactic acid elevated at 2.1. Chest xray showed COPD. Head CT showed "Small amount of acute subarachnoid blood may be present left frontal sulcus. The previously noted right sided intracranial hemorrhage has essentially resolved." He was given 1/2 liter fluids, solumedrol, rocephin, breathing treatment, and pepcid in ED. ED provider wishes to admit patient for observation for echo and carotid ultrasound in morning. Allergies No Known Allergies Allergy (Verified 12/11/21 22:52) Home medications list reviewed: Yes Home Medications: Divalproex ER [Depakote *ER] 1 tab PO DAILY 12/12/21 Donepezil HCl [Aricept] 1 tab PO BIDWM 12/12/21 Gabapentin 3 tab PO TID 12/12/21 Memantine HCl [Namenda*] 1 tab PO DAILY 12/12/21 PARoxetine HCl [Paxil] 1 tab PO BID 12/12/21 Amitriptyline [Elavil*] 1 tab PO BEDTIME 12/13/21 Aspirin [Aspirin EC 81 MG] 81 mg PO DAILY #100 tablet. 12/13/21 Meclizine HCl 1 tab PO TID 12/13/21 Pyridostigmine Edroy [Mestinon*] 30 mg PO BID #30 tablet 12/13/21 - Past Medical/Surgical History Diabetic: No -: Asthma -: COPD -: Dementia -: Hypertension -: Intracranial Hemorrhage -: hip surgery -: appedectomy Psychosocial/ Personal History: Patient lives at [facility]. - Family History Family History: Reviewed- Non-Contributory - Social History Smoking Status: Never smoker Alcohol use: No CD- Drugs: No Caffeine use: No Place of Residence: [facility] Review of Systems Neurological: Other (Syncope) Physical Examination - Physical Exam General: Alert, In no apparent distress, Confused HEENT: Atraumatic, PERRLA, EOMI, Sclerae nonicteric Neck: Supple, 2+ carotid pulse no bruit, No LAD, Without JVD or thyroid abnormality Respiratory: Clear to auscultation bilaterally, Normal air movement Cardiovascular: Regular rate/rhythm, Normal S1 S2 Gastrointestinal: Normal bowel sounds, No tenderness Musculoskeletal: No tenderness Integumentary: No rashes Neurological: Normal strength at 5/5 x4 extr, Sensation intact - Studies Laboratory Data (last 24 hrs) 03/18/22 19:38: Sodium 137, Potassium 3.4 L, BUN 31 H, Creatinine 0.83, Glucose 110 H, Magnesium 1.9, Total Bilirubin 0.5, AST 28, ALT 53, Alkaline Phosphatase 84, Lipase 119 03/18/22 18:49: PT 12.6 H, INR 1.14 03/18/22 18:49: WBC 10.40, Hgb 13.1 L, Hct 38.8 L, Plt Count 314 Assessment and Plan - Problems (Diagnosis) (1) Syncope Current Visit: Yes Status: Acute Qualifiers: Syncope type: unspecified Qualified Code(s): R55 - Syncope and collapse (2) Asthma Current Visit: Yes Status: Chronic Qualifiers: Asthma severity: unspecified severity Asthma persistence: unspecified Asthma complication type: uncomplicated Qualified Code(s): J45.909 - Unspecified asthma, uncomplicated (3) Alzheimer disease Current Visit: Yes Status: Chronic (4) COPD (chronic obstructive pulmonary disease) Current Visit: Yes Status: Chronic Qualifiers: COPD type: unspecified COPD Qualified Code(s): J44.9 - Chronic obstructive pulmonary disease, unspecified - Plan -Initial lactic acid elevated at 2.1. Repeat 1.5 -Echo and carotid ultrasound ordered for the morning -Neurology consult -Monitor on telemetry -Physical therapy consult -Breathing treatments as needed -Reconcile and continue home medications -Monitor and replete electrolytes per protocol -Lovenox for VTE prophylaxis -Full code Patient's next of Kin, Sonny, can be reached at [phone] Patient's friend, Alessio, can be reached at [phone] Discharge Plan: Home Plan to discharge in: 24 Hours - Advance Directives Does patient have a Living Will: Yes Does patient have a Durable POA for Healthcare: Yes - Code Status/Comfort Care Code Status Assessed: Yes (Full) Critical Care: No Time Spent Managing Pts Care (In Minutes): 50
[2022-03-19] MEDS ORDERED: ACETAMINOPHEN 500 MG TAB PO PRN (00:14)
[2022-03-19] MEDS ORDERED: ONDANSETRON 4 MG/2 ML VIAL IV PRN (00:14)
[2022-03-19 01:09] VITALS: BMI 18.8
[2022-03-19] MEDS ORDERED: ALBUTEROL 2.5 MG/3 ML NEB SOL NEB PRN (02:00)
[2022-03-19 08:15] LABS: Absolute Lymphocytes (CBC) 0.8 K/uL (0.7-4.9); Hematocrit 36.2 % (39.6-49.0); Lymphocytes % 12.1 % (15.3-44.8); MCV 91.1 fL (80-100); MPV 7.6 fL (7.6-11.3); RBC Red Blood Cell Count 3.97 M/uL (4.33-5.43)
[2022-03-19 08:19] LABS: Magnesium 2.1 mg/dL (1.8-2.4); Phosphorus 3.2 mg/dL (2.5-4.9); Potassium 3.7 mmol/L (3.5-5.1); Thyroid Stimulating Hormone 0.406 uIU/mL (0.360-3.740)
--- NOTE | 2022-03-19 08:25 | RAD REPORT ---
EXAM DESCRIPTION: - CP - 03/19/2022 5:23 am CLINICAL HISTORY: syncope Headache, drowsiness COMPARISON: Head C Spine Mpr Wo Con dated 12/11/2021 TECHNIQUE: Real-time sonographic evaluation of both carotid systems was performed. Doppler interroga tion was performed with waveform tracing bilaterally. FINDINGS: Due to patient confusion and anxious dense, only the right carotid system could be perform ed. Mild mixed plaque is seen right carotid bulb. Peak systolic and end diastolic velocity values and the ICA/CCA ratios are in the non-hemodynamically significant range. Antegrade flow is seen right vertebral artery. IMPRESSION: Mild mixed plaque is seen right carotid bulb. No evidence of a hemodynamically significant stenosis on the right. The left carotid system could not be evaluated as the examination had to be prematurely terminated.
[2022-03-19] MEDS: ENOXAPARIN 40 MG/0.4 ML SQ SCH (09:00)
[2022-03-19] MEDS: POTASSIUM CL SA 10 MEQ TAB PO ONE (09:23)
[2022-03-19] MEDS: HALOPERIDOL LACT 5 MG/ML INJ IV ONE (09:23)
[2022-03-19] MEDS: ZIPRASIDONE MESYLA 20 MG/VIAL IM ONE (11:41)
[2022-03-19] MEDS: WATER FOR INJ,STERILE 10 ML IM PRN ×2 (11:41→17:31)
--- NOTE | 2022-03-19 13:38 | EKG ---
Test Date: 2022-03-18 Test Time: 18:50:24 Food Product Inspector: JULIO CÉSAR MEASUREMENT RESULTS: Intervals: Rate: 91 WA: 150 QRSD: 92 QT: 376 QTc: 462 [place]: P: 76 WA: 150 QRS: 83 T: 67 INTERPRETIVE STATEMENTS: Normal sinus rhythm Nonspecific ST abnormality Abnormal ECG Compared to ECG 02/21/2022 19:59:04 ST (T wave) deviation now present Left bundle-branch block no longer present Electronically Signed On 03-19-22 13:36:38 CDT by Leo Correa
--- NOTE | 2022-03-19 17:15 | P.PN ---
Subjective Date of Service: 03/19/22 Chief Complaint: Syncope Patient quite agitated today and very confused. He was given a dose of IV Haldol and later IM Geodon for the agitation. Physical Examination - Vital Signs Temperature: 97.7 F Blood Pressure: 100/64 Pulse: 73 Respirations: 16 Pulse Ox (%): 96 - Studies Laboratory Data (last 24 hrs) 03/19/22 07:42: Sodium 137, Potassium 3.7, BUN 26 H, Creatinine 0.89, Glucose 133 H, Phosphorus 3.2, Magnesium 2.1, Triglycerides 59, Cholesterol 176, HDL Cholesterol 75 H, Cholesterol/HDL Ratio 2.35 03/19/22 07:42: WBC 6.40, Hgb 12.4 L, Hct 36.2 L, Plt Count 310 03/18/22 19:38: Sodium 137, Potassium 3.4 L, BUN 31 H, Creatinine 0.83, Glucose 110 H, Magnesium 1.9, Total Bilirubin 0.5, AST 28, ALT 53, Alkaline Phosphatase 84, Lipase 119 03/18/22 18:49: PT 12.6 H, INR 1.14 03/18/22 18:49: WBC 10.40, Hgb 13.1 L, Hct 38.8 L, Plt Count 314 Assessment And Plan - Current Problems (Diagnosis) (1) Altered mental status Current Visit: Yes Status: Acute (2) Subarachnoid hemorrhage Current Visit: Yes Status: Acute (3) History of intracranial hemorrhage Current Visit: Yes Status: Acute - Plan Physical Exam General: Confused and agitated Neck: Supple. Respiratory: Clear to auscultation bilaterally, Normal air movement Cardiovascular: Regular rate/rhythm, Normal S1 S2 Gastrointestinal: Normal bowel sounds, No tenderness Integumentary: No rashes Neurological: No focal motor deficit. Hand tremors. Plan: Patient was diagnosed with amyloid angiopathy at [facility] when he was transferred for basal ganglia bleed. Case discussed with Dr. Cortés patient's neurologist who stated patient has increased risk of spontaneous intracranial bleed from the amyloid angiopathy. Patient with altered mental status, confused and agitated. I spoke to the family who mentioned patient has been declining mentally over the past 1 month since his diagnosis. They do not see any likelihood of quality of life for him. They agreed to hospice evaluation. Dr. Cortés agrees to hospice. Patient to be evaluated for hospice at [facility]. He may need inpatient stay for optimization of medications for agitation on hospice prior to discharge to [facility] with hospice. Geodon as needed for agitation. Awaiting hospice evaluation. Avoid anticoagulants.
[2022-03-19] MEDS: ZIPRASIDONE MESYLA 20 MG/VIAL IM PRN (17:31)
[2022-03-19] MEDS: THIAMINE 200 MG/2 ML INJ IVP SCH (17:49)
--- NOTE | 2022-03-20 00:22 | CON ---
Reason For Consultation: Consultation called because of syncope. History Of Present Illness: Mr. Garcia is a 76-year-old patient with apparent apaofyht-yo-ckfyaq ed dementia followed by Dr. Jose Cortés, in addition to hypertension, COPD, and asthma. He comes to [facility] from the [facility] with a repeated syncopal episode. He reportedly h ad intracranial hemorrhage where he was seen in [place] and did rehabilitation inpatient, then [place] [facility]. He was reportedly had a syncopal episode; how ever, he quickly regained awareness and at the time of evaluation by the EMS, he was at baseline leve l of functioning. At [facility], head CT scan showed a small amount of acute subarachnoid b lood present in the left frontal sulcus. There is also a resolution of a right intracranial hemorrha ge. Further his blood work included a normal white blood cell count and slightly low hemoglobin. Hi s liver function studies are unremarkable. His electrolytes are slightly off, including slightly low potassium, otherwise BUN 31. His lactic acid was slightly elevated at 2.1. Procalcitonin was not d one. Valproic acid less than 2. COVID-19 test was negative. His chest x-ray showed a COPD pattern and he was afebrile. However, he did receive Rocephin 1 g and methylprednisolone and was admitted fo r rule out of stroke. His behavior on the floor, apparently was combative. He did get up and was wa lking along the de [place] and had to be chemically restrained receiving Geodon IM. At the time of my eval uation, he was in bed, alert to his name and responded to that, but did not follow commands to move t he arms or legs independently or together. He did smile, but did not reach out his hand when I asked to shake the hand. Past Medical History: As noted. Allergies: NO KNOWN DRUG ALLERGIES. Medications: Depakote, donepezil, gabapentin, Namenda, Paxil, Elavil, aspirin, meclizine, and Mestin on. Past Surgical History: Appendectomy and hip surgery. Family History: Noncontributory. Social History: Resides in the [facility]. No alcohol, tobacco, or IV drug use. Review of Systems: Unable to perform review of systems as the patient just answers to his name. Physical Examination: Vital Signs: Blood pressure 100/60, pulse 73, respiratory rate 16, temperature 97.7, oxygen saturati on 96%. Weight 150 pounds, height 6 feet 3 inches, BMI 18. General: Mr. Garcia is resting in bed. He is alert, answered to his name. HEENT: He appears to be normocephalic and atraumatic. Sclerae appear anicteric. Oropharynx is mois t. Neck: Supple. Extremities: No significant edema noted in the extremities. Neurologic: Face appears symmetric. Arm and leg movement appear equal. Did not do voluntary moveme nt to instruction. Unable to fully assess sensation, coordination, full strength, or balance. Assessment: Mr. Garcia is a 76-year-old patient with advanced dementia followed by Dr. Cortés. Jose Manuel mccartney has had multiple syncopal episodes, possibly related to hypotension. His blood pressure earlier to day was 100/64. He did have a prior blood pressure of 163/81, and it is possible that he may have or thostatic changes. Blood pressure earlier today was as low as 98/53. Plan: 1.Orthostatic blood pressures should be done. 2.The patient may require FARTUN hose to above the knee and abdominal binders when ambulating. 3.He should be put on hydration program to manage his water intake and blood pressures taken multipl e times daily, perhaps 3 and antihypertensive medications may be held if used at this point. It is n ot likely he has an infection. Antibiotics can be stopped. May continue with Geodon as needed for a ggressive behaviors. 4.He may be discharged back to the [facility], but he should be in a memory care unit for his safety. ADRIAN/LYNSEY Voice ID: [id number] Report ID: [id number]
[2022-03-20] MEDS ORDERED: THIAMINE 200 MG/2 ML INJ IVP SCH (17:11)
[2022-03-20 17:21] VITALS: TEMP 97.9
[2022-03-20 17:31] VITALS: BP 99/71; O2SAT 98
== END 2022-03-19 20:48 | disposition hospice, inpatient (51) | DRG 312 ==
LOC: ER 18:11 → ERHOLD 21:47 → 4TH 23:35 → OBSVTOIN 03-19 15:53
PROVIDERS: ADMIT Internal Medicine; ATTEND Internal Medicine
DX: R55 Syncope and collapse (principal); I60.9 Nontraumatic subarachnoid hemorrhage, unspecified; J44.9 Chronic obstructive pulmonary disease, unspecified; I10 Essential (primary) hypertension; G30.9 Alzheimer's disease, unspecified; F02.80 Dementia in other diseases classified elsewhere, unspecified severity, without behavioral disturbance, psychotic disturbance, mood disturbance, and anxiety; Z51.5 Encounter for palliative care; Z79.82 Long term (current) use of aspirin; Z90.49 Acquired absence of other specified parts of digestive tract; Z79.899 Other long term (current) drug therapy; Z20.822 Contact with and (suspected) exposure to COVID-19
CPT/HCPCS: 36415; 70450; 71045; 80048; 80061; 80076; 80164; 83605; 83690; 83735; 83880; 84100; 84443; 84484; 85025; 85610; 87040; 93005; 93880; 96374; 96375; 99285; G0378; J1630; J1650; J2930; J3411; J3486; J7040; J7614; U0003

== ENCOUNTER 2022-03-19 21:03 | Inpatient (IN) | payer OTHER ==
--- OUTSIDE RECORDS SUMMARY | 2022-03-19 21:09 | XMS REPORT | Continuity of Care Document ---
:1945 Author Organization [facility] t Address 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 Andre n (disorder) (disorder) Resolved Problem 02/27/2022 [facility] Asthma Asthma Problem Active 2022-02-27 Mem oria (disorder) (disorder) 22:58:16 l Active [place] Problem 02/27/2022 [facility] Dementia Dementia Problem Active 2022-02-27 Memoria (disorder) (disorder) 22:58:16 l Active Sy Problem 02/27/2022 [facility] Headache Headache Problem Active 2022-02-27 Memoria (finding) (finding) 22:58:16 l Active Sy Problem 02/27/2022 [facility] Syncope Syncope Problem Active 2022-02-27 M emoria due to due to 22:58:16 l orthostati orthostati He rmann c c hypotensio hypotensio n n (disorder) (disorder) Active Problem 02/27/2022 [facility] Unexplaine Unexplain Problem Active 2022-02-27 Memoria d falls [place] 22:58:16 l (finding) (finding) Herm yani Active Problem 02/27/2022 [facility] Anxiety Anxiety Problem Active 2022-02-27 Me moria (finding) (finding) 22:58:16 l Active Sy Problem 02/27/2022 [facility] Tremor Tremor Problem Active 2022-02-27 Mem oria (finding) (finding) 22:58:16 l Active Sy Problem 02/27/2022 [facility] Allergies, Adverse Reactions, Alerts Allergy Allergy Status Severity Reaction(s) Onset Inactive Treating Comm ents Source Name Type Date Date Clinician No Known DA Active U 2018-06 [facility]19 [place] [facility] 00 [facility] No Known DA Active U 2015-06 [facility]ie 0-03 [place] 00:[facility] Social History Social Habit Start Date Stop Date Quantity Comments Source Social History 2021-07-11 2021-07-11 [facility] 21:03:58 21:03:58 Sex Assigned At [birth year] [facility]00 [facility] Medications Ordered Filled Start Stop Current Ordering Indication Dosage Frequency Signature Comments Components Source Medication Medication Date Date Medication? Clinician (SIG) Name Name PARoxetine Yes 20 mg = 1 Me moria 20 mg oral 7-20 tab, PO, l tablet 21:23: BID, # 60 Andre n 00 tab, 3 Refill(s), Pharmacy: [facility] #[id number], 182.88, cm, 01/14/22 15:46:00 CDT, Height, 77.841, kg, 01/14/22 15:46:00 CDT, Weight PARoxetine Yes 20 mg = 1 Me moria 20 mg oral 7-20 tab, PO, l tablet 21:23: BID, # 60 Andre n 00 tab, 3 Refill(s), Pharmacy: [facility] #[id number], 182.88, cm, 01/14/22 15:46:00 CDT, Height, 77.841, kg, 01/14/22 15:46:00 CDT, Weight fludrocorti 2021-0 Yes TAKE 1 Rik marci sone 0.1 mg 6-27 TABLET BY l oral tablet 20:10: MOUTH Merna nn 00 DAILY FOR ORTHOSTASI S fludrocorti 2021-0 Yes TAKE 1 Rik marci sone 0.1 mg 6-27 TABLET BY l oral tablet 20:10: MOUTH Merna nn 00 DAILY FOR ORTHOSTASI S amitriptyli 2021-0 Yes 10 mg = 1 M emoria ne 10 mg 5-04 tab, PO, l oral tablet 18:23: Bedtime, # Sy 00 30 tab, 2 Refill(s), Pharmacy: [facility] #[id number], 185.42, cm, 10/29/21 13:02:00 CDT, Height, 80.909, kg, 10/29/21 13:02:00 CDT, Weight amitriptyli 2021-0 Yes 10 mg = 1 M emoria ne 10 mg 5-04 tab, PO, l oral tablet 18:23: Bedtime, # Sy 00 30 tab, 2 Refill(s), Pharmacy: [facility] #[id number], 185.42, cm, 10/29/21 13:02:00 CDT, Height, 80.909, kg, 10/29/21 13:02:00 CDT, Weight divalproex 2021-0 Yes 250 mg = 1 M emoria sodium 250 5-04 tab, PO, l mg oral 18:21: Daily, # Andre n enteric 00 30 tab, 3 coated Refill(s), tablet Pharmacy: ([facility] #[id number], 185.42, cm, 10/29/21 13:02:00 CDT, Height, 80.909, kg, 10/29/21 13:02:00 CDT, Weight divalproex 2022-0 Yes 250 mg = 1 M emoria sodium 250 5-04 tab, PO, l mg oral 18:21: Daily, # Andre n enteric 00 30 tab, 3 coated Refill(s), tablet Pharmacy: ([facility]) [facility] #[id number], 185.42, cm, 10/29/21 13:02:00 CDT, Height, 80.909, kg, 10/29/21 13:02:00 CDT, Weight ubrogepant 2022-0 Yes 100 mg = 1 M emoria 100 MG Oral 2-11 tab, PO, l Tablet 17:58: PRN, PRN Sy [Ubrelvy] 00 Other -See Comment, X 30 day, # 8 tab, 1 Refill(s), Pharmacy: [facility] #[id number], For Migraine. May repeat dose after 2 hours. Max dose 200 mg/ 24 hours, 182.88, cm, 08/08/21 11:49:00 [employer], Height, 77.273, kg, 07/29... Divalproex 2022-0 Yes 500 mg = 1 M emoria Sodium 500 2-11 tab, PO, l MG Enteric 17:58: Daily, # Her shoemaker Coated 00 30 tab, 3 Tablet Refill(s), Pharmacy: [facility] #[id number], 182.88, cm, 08/08/21 11:49:00 [employer], Height, 77.273, kg, 08/08/21 11:49:00 [employer], Weight ubrogepant 2022-0 Yes 100 mg = 1 M emoria 100 MG Oral 2-11 tab, PO, l Tablet 17:58: PRN, PRN [place] [Ubrelvy] 00 Other -See Comment, X 30 day, # 8 tab, 1 Refill(s), Pharmacy: [facility] #[id number], For Migraine. May repeat dose after 2 hours. Max dose 200 mg/ 24 hours, 182.88, cm, 08/08/21 11:49:00 [employer], Height, 77.273, kg, 07/29... Divalproex 2022-0 Yes 500 mg = 1 M emoria Sodium 500 2-11 tab, PO, l MG Enteric 17:58: Daily, # Her shoemaker Coated 00 30 tab, 3 Tablet Refill(s), Pharmacy: [facility] #[id number], 182.88, cm, 08/08/21 11:49:00 [employer], Height, 77.273, kg, 08/08/21 11:49:00 [employer] MAN, Weight 24 HR 2021-0 Yes 250 mg = 1 Memori a Divalproex 1-14 tab, PO, l Sodium 250 22:36: Daily, Vadim Barney shoemaker MG Extended 30 tab, 3 Release Refill(s), Tablet Pharmacy: [facility] #[id number], 185.42, cm, 07/11/21 15:37:00 [employer], Height, 76.364, kg, 07/11/21 15:37:00 [employer] MAN, Weight ubrogepant 0 Yes 100 mg = 1 M emoria 100 MG Oral 1-14 tab, PO, l Tablet 22:36: PRN, PRN [place] [Ubrelvy] 00 Other -See Comment, X 30 day, # 8 tab, 1 Refill(s), [id number], For Migraine. May repeat dose after 2 hours. Max dose 200 mg/ 24 hours, 185.42, cm, 07/11/21 15:37:00 [employer] H[employer] MAN, Height, 76.364, kg, 06/28... 24 HR 2021-0 Yes 250 mg = 1 Memori a Divalproex 1-14 tab, PO, l Sodium 250 22:36: Daily, Vadim Barney shoemaker MG Extended 30 tab, 3 Release Refill(s), Tablet Pharmacy: [facility] #[id number], 185.42, cm, 07/11/21 15:37:00 [employer], Height, 76.364, kg, 07/11/21 15:37:00 P[employer]LTRY HATCH[employer] MAN, Weight ubrogepant 2021-0 Yes 100 mg = 1 M emoria 100 MG Oral 1-14 tab, PO, l Tablet 22:36: PRN, PRN Sy [Ubrelvy] 00 Other -See Comment, X 30 day, # 8 tab, 1 Refill(s), [id number], For Migraine. May repeat dose after 2 hours. Max dose 200 mg/ 24 hours, 185.42, cm, 07/11/21 15:37:00 [employer] H[employer] MAN, Height, 76.364, kg, 06/28... Zinc 2021-0 Yes 140 mg, Memoria 1-14 PO, Daily, l 21:13: 0 Refill(s) Vitamin C 0 Yes Daily, 0 Rik marci 1-14 Refill(s) l 21:13: Zinc 0 Yes 140 mg, Memoria 1-14 PO, Daily, l 21:13: 0 Refill(s) Vitamin C 0 Yes Daily, 0 Rik marci 1-14 Refill(s) l 21:13: Sy 00 D3 0 Yes PO, Daily, Memoria 1-14 0 l 21:12: Refill(s) B-Complex Yes PO, Daily, Me moria 50 1-14 0 l 21:12: Refill(s) Vitamin A Yes 0 Memoria 1-14 Refill(s) l 21:12: biotin 0 Yes PO, Daily, Memor ia 1-14 0 l 21:12: Refill(s) D3 0 Yes PO, Daily, Memoria 1-14 0 l 21:12: Refill(s) B-Complex 0 Yes PO, Daily, Me moria 50 1-14 0 l 21:12: Refill(s) Vitamin A Yes 0 Memoria 1-14 Refill(s) l 21:12: biotin 0 Yes PO, Daily, Memor ia 1-14 0 l 21:12: Refill(s) Magnesium Yes 1 gm, IV, Mem oria Sulfate 1-14 ONCE, 0 l 21:11: Refill(s) multivitami 0 Yes Daily, 0 Me moria n 1-14 Refill(s) l 21:11: Magnesium 0 Yes 1 gm, IV, Mem oria Sulfate 1-14 ONCE, 0 l 21:11: Refill(s) multivitami 0 Yes Daily, 0 Me moria n 1-14 Refill(s) l 21:11: Ipratropium 0 Yes 500 Memori a 1-14 microgram, l 21:09: NEB, QID, Sy 00 0 Refill(s) Trelegy 2021-0 Yes = 1 Memoria Ellipta 100 1-14 inhalation l mcg-62.5 21:09: , PO, [place] mcg-25 00 Daily, # 1 mcg/inh ea, 0 inhalation Refill(s) powder Ipratropium 2021-0 Yes 500 Memori a 1-14 microgram, l 21:09: NEB, QID, [place] 00 0 Refill(s) Trelegy 2021-0 Yes = 1 Memoria Ellipta 100 1-14 inhalation l mcg-62.5 21:09: , PO, [place] mcg-25 00 Daily, # 1 mcg/inh ea, 0 inhalation Refill(s) powder meclizine 2021-0 Yes 0 Memoria 25 mg oral 1-14 Refill(s) l tablet 21:07: [place] 00 meclizine 2021-0 Yes 0 Memoria 25 mg oral 1-14 Refill(s) l tablet 21:07: [place] 00 gabapentin 2021-0 Yes 0 Memoria 100 MG Oral 1-14 Refill(s) l Capsule 21:05: Sy 00 Paroxetine 2021-0 Yes 0 Memoria Hydrochlori 1-14 Refill(s) l de 20 MG 21:05: [place] Oral Tablet 00 donepezil 2021-0 Yes 10 mg = 1 Mem oria 10 mg oral 1-14 tab, PO, l tablet 21:05: BID, 0 [place] 00 Refill(s) memantine 2021-0 Yes 10 mg = 1 Mem oria 10 mg oral 1-14 tab, PO, l tablet 21:05: BID, 0 Sy 00 Refill(s) gabapentin 2021-0 Yes 0 Memoria 100 MG Oral 1-14 Refill(s) l Capsule 21:05: Sy Paroxetine 2021-0 Yes 0 Memoria Hydrochlori 1-14 Refill(s) l de 20 MG 21:05: [place] Oral Tablet 00 donepezil 2021-0 Yes 10 mg = 1 Mem oria 10 mg oral 1-14 tab, PO, l tablet 21:05: BID, 0 Sy 00 Refill(s) memantine 2021-0 Yes 10 mg = 1 Mem oria 10 mg oral 1-14 tab, PO, l tablet 21:05: BID, 0 Sy 00 Refill(s) Immunizations Ordered Immunization Filled Immunization Date Status Commen ts Source Name Name [id number] 2020-09-14 Completed Rik rial [id number]-[id number] 00:00:00 Herm yani [id number] 2020-09-14 Completed Rik rial NABNT-[id number] 00:00:00 Herm yani Hx influenza 2020-03-05 Completed [facility] vaccine-unspecified 00:00:00 Merna nn Hx influenza 2020-03-05 Completed [facility] vaccine-unspecified 00:00:00 Merna nn Vital Signs Vital Name Observation Time Observation Value Comments Source Systolic (mm Hg) 2022-01-14 20:10:00 Rik rial Sy Diastolic (mm Hg) 2022-01-14 20:10:00 Mem orial [place] Heart Rate 2022-01-14 20:10:00 [facility] [place] Respitory Rate 2022-01-14 20:10:00 Memori al Sy Height 2022-01-14 20:10:00 182.88 cm Memorial Sy Weight 2022-01-14 20:10:00 Memorial Sy BMI Calculated 2022-01-14 20:10:00 Memori al [place] Systolic (mm Hg) 2021-12-22 19:18:00 Rik rial [place] Diastolic (mm Hg) 2021-12-22 19:18:00 Mem orial Sy Heart Rate 2021-12-22 19:18:00 Memorial [place] Respitory Rate 2021-12-22 19:18:00 Memori al [place] Height 2021-12-22 19:18:00 182.88 cm Memorial [place] Weight 2021-12-22 19:18:00 [facility] [place] BMI Calculated 2021-12-22 19:18:00 Memori al Sy Systolic (mm Hg) 2021-10-29 18:02:00 Rik rial Sy Diastolic (mm Hg) 2021-10-29 18:02:00 Mem orial Sy Heart Rate 2021-10-29 18:02:00 Memorial [place] Respitory Rate 2021-10-29 18:02:00 Memori al Sy Height 2021-10-29 18:02:00 185.42 cm Memorial Sy Weight 2021-10-29 18:02:00 Memorial Sy BMI Calculated 2021-10-29 18:02:00 Memori al [place] Systolic (mm Hg) 2021-09-19 14:39:00 Rik rial [place] Diastolic (mm Hg) 2021-09-19 14:39:00 Mem orial Sy Heart Rate 2021-09-19 14:39:00 Memorial Sy Respitory Rate 2021-09-19 14:39:00 Memori al [place] Height 2021-09-19 14:39:00 184.15 cm Memorial Sy Weight 2021-09-19 14:39:00 [facility] [place] BMI Calculated 2021-09-19 14:39:00 Memori al [place] Heart Rate 2021-08-08 17:37:00 Memorial Sy Respitory Rate 2021-08-08 17:37:00 Memori al [place] Height 2021-08-08 17:37:00 182.88 cm Memorial Sy Weight 2021-08-08 17:37:00 [facility] [place] BMI Calculated 2021-08-08 17:37:00 Memori al [place] Systolic (mm Hg) 2021-08-08 17:37:00 Rik rial [place] Diastolic (mm Hg) 2021-08-08 17:37:00 Mem orial Sy Systolic (mm Hg) 2021-07-11 20:57:00 Rik rial [place] Diastolic (mm Hg) 2021-07-11 20:57:00 Mem orial [place] Heart Rate 2021-07-11 20:57:00 Memorial Sy Respitory Rate 2021-07-11 20:57:00 Memori al [place] Height 2021-07-11 20:57:00 185.42 cm Memorial Sy Weight 2021-07-11 20:57:00 [facility] [place] BMI Calculated 2021-07-11 20:57:00 Memori al Sy Procedures Procedure Date / Time Performed Performing Clinician [facility] e Tonsillectomy [facility] Sy Hip joint operations [facility] rmann Appendix operation [facility] Herm yani Plan of Care Planned Activity Planned Date [...] [facility] Future Scheduled 1946 CT Colonography (combo) [facility] Test 00:00:00 [code = CT Colonography [facility] (combo)] Future Scheduled 1946 Screening for malignant [facility] Test 00:00:00 neoplasm of colon [facility] (procedure) [code = 938460242] Future Scheduled 1946 Screening for malignant [facility] Test 00:00:00 neoplasm of colon [facility] (procedure) [code = 003981642] Future Scheduled 1946 Screening for malignant [facility] Test 00:00:00 neoplasm of colon [facility] (procedure) [code = 508978957] Future Scheduled 1946 Screening for malignant [facility] Test 00:00:00 neoplasm of colon [facility] (procedure) [code = 948550544] Future Scheduled 1946 Screening for malignant [facility] Test 00:00:00 neoplasm of colon [facility] (procedure) [code = 312353961] Future Scheduled 1945 Sigmoidoscopy [code = [facility] Future Scheduled 1946 Screening for malignant [facility] Test 00:00:00 neoplasm of colon [facility] (procedure) [code = 318608740] Future Scheduled 1946 CT Colonography (combo) [facility] Test 00:00:00 [code = CT Colonography [facility] (combo)] Future Scheduled 1946 Screening for malignant [facility] 00:00:00 neoplasm of colon [facility] (procedure) [code = 305744126] Future Scheduled 1946 Screening for malignant [facility] Test 00:00:00 neoplasm of colon [facility] Ce [facility] (procedure) [code = 305652860] Future Scheduled 1945 Sigmoidoscopy [facility]code = [facility] 00:[facility]oscopy] Medical Cent[facility] r Future Scheduled 1946 Screening for malignant [facility] Test 00:00:00 neoplasm of colon [facility] (procedure) [code = 167561975] Future Scheduled 1946 Screening for malignant [facility] Test 00:00:00 neoplasm of colon Medical Ce [facility] (procedure) [code = 313843300] Future Scheduled 1946 Screening for malignant [facility] Test 00:00:00 neoplasm of colon Medical Ce [facility] (procedure) [code = 309509992] Future Scheduled 1946 Screening for malignant [facility] Test 00:00:00 neoplasm of colon Medical Ce [facility] (procedure) [code = 447449019] Future Scheduled 1945 Sigmoidoscopy [facility]code [facility] 00:[facility] S[facility]oscopy] Medical Cent[facility] r Encounters Start End Encounter Admission Attending Care Care Encounter Source Date/Time Date/Time Type Type Clinicians Facility Department ID 2022-03-11 Outpatient [facility] [id number] 06:13:22 [id number] [facility] 2022-03-05 Outpatient [facility] [id number] [place] 16:43:08 [id number] [facility] 2022-03-03 Outpatient [facility] [id number] [place] 16:07:24 [id number] [facility] 2022-02-25 Outpatient [facility] [id number] 07:25:40 [id number] [facility] 2022-03-24 2022-03-24 Outpatient RUTH MIRANDA [id number] Memoria 11:00:00 11:00:00 05 hugo Dan 2022-03-24 2022-03-24 Outpatient RUTH MIRANDA [id number] Memoria 11:00:00 11:00:00 05 hugo Dan 2022-03-23 2022-03-23 [id number] [place] 13:00:00 13:00:00 LATRICIA Davidson [facility] 2022-02-25 2022-02-25 Ambulatory nullFlavo MNA [id number] Memoria 19:15:00 19:15:00 Pre-Reg r Neurology 07 l Kannan Valenciaann 2022-02-25 2022-02-25 Ambulatory nullFlavo MNA [id number] Memoria 19:15:00 19:15:00 Pre-Reg r Neurology 07 l Kannan [place] 2022-02-25 2022-02-25 Outpatient MHIE MHIE [id number] Memoria 14:15:00 14:15:00 07 hugo [place] 2022-02-25 2022-02-25 [id number] 14:15:00 14:15:00 Jose 07 Иван 2022-01-14 2022-01-15 Outpatient nullFlavo MNA [id number] Memoria 20:00:00 04:59:59 r Neurology 06 hugo Brunner [place] 2022-01-14 2022-01-15 Outpatient nullFlavo MNA [id number] Memoria 20:00:00 04:59:59 r Neurology 06 hugo Brunner [place] 2022-01-14 2022-01-14 Outpatient ANGELICA CortésSCHMADIHA [facility] [id number] 15:00:00 23:59:59 Jose Zeina Oates 2022-01-14 2022-01-14 Outpatient MHIE JIMIE [id number] Memoria 15:00:00 15:00:00 06 hugo [place] 2021-12-22 2021-12-23 Outpatient nullFlavo MNA [id number] Memoria 19:15:00 04:59:59 r Neurology 03 hugo Brunner [place] 2021-12-22 2021-12-23 Outpatient nullFlavo MNA [id number] Memoria 19:15:00 04:59:59 r Neurology 03 hugo Brunner Sy 2021-12-22 2021-12-22 Outpatient ANGELICA CortésSCHMADIHA [facility]ISCHER [id number] 14:15:00 23:59:59 Jose 03 Иван 2021-12-22 2021-12-22 Outpatient MHIE MHIE [id number] Memoria 14:15:00 14:15:00 03 hugo ValenciaDe Leon 2021-10-29 2021-10-30 Outpatient nullFlavo MNA [id number] Memoria 18:00:00 04:59:59 r Neurology 04 l Kannan Valenciaann 2021-10-29 2021-10-30 Outpatient nullFlavo MNA [id number] Memoria 18:00:00 04:59:59 r Neurology 04 l Kannan Sy 2021-10-29 2021-10-29 [facility] [id number] 13:00:00 23:59:59 Jose 04 Иван 2021-10-29 2021-10-29 Outpatient MHIE IE [id number] Memoria 13:00:00 13:00:00 04 hugo [place] 2021-09-19 2021-09-20 Outpatient nullFlavo MNA [id number] Memoria 14:30:00 04:59:59 r Neurology 02 hugo Brunner [place] 2021-09-19 2021-09-20 Outpatient nullFlavo MNA [id number] Memoria 14:30:00 04:59:59 r Neurology 02 hugo Brunner [place] 2021-09-19 2021-09-19 Outpatient Moo [facility] [id number] 09:30:00 23:59:59 Jose Иван 2021-09-19 2021-09-19 Outpatient MHIE IE [id number] Memoria 09:30:00 09:30:00 02 hugo [place] 2021-08-08 2021-08-09 Outpatient nullFlavo MNA [id number] Memoria 17:15:00 05:59:59 r Neurology 01 hugo Brunner [place] 2021-08-08 2021-08-09 Outpatient nullFlavo MNA [id number] Memoria 17:15:00 05:59:59 r Neurology 01 hugo Brunner [place] 2021-08-08 2021-08-08 Outpatient [facility] [id number] 11:15:00 23:59:59 Jose Иван 2021-08-08 2021-08-08 Outpatient MHIE MHIE [id number] Memoria 11:15:00 11:15:00 01 l Sy 2021-07-11 2021-07-12 Outpatient nullFlavo MNA [id number] Memoria 21:30:00 05:59:59 r Neurology 00 l Kannan Dan 2021-07-11 2021-07-12 Outpatient nullFlavo MNA [id number] Memoria 21:30:00 05:59:59 r Neurology 00 l Kannan Dan 2021-07-11 2021-07-11 Outpatient Moo[facility] [id number] 15:30:00 23:59:59 Jose 00 Иван 2021-07-11 2021-07-11 Outpatient IE IE [id number] Memoria 15:30:00 15:30:00 00 l Sy Results Test Description Test Time Test Comments Results Result [facility] sherrill Comments CT, BRAIN, 2019-06-07 FINAL REPORT PATIENT WITHOUT CONTRAST 08:36:00 ID: [id number] CT, BRAIN, WITHOUT CONTRAST CLINICAL INDICATION: MCI [...] MDReport Verified Date/Time: 06/07/2019 08:36:08 Reading Location: [facility] Radiology Reading Room - XR CHEST 1 V 2019-05-18 FAX: Vernon Holm 11:03:00 E Allen [phone] Camps: [facility]: ADM FAX: Javier Vences MD Name: BART SANCHEZ [facility] : 1945 Age/S: 73/M [address] Unit #: [id number] Loc: [address] [place], [place] [address] Phys: Javier Perera MD Acct: [id number] Dis Date: Status: ADM IN PHONE #: [phone] Exam Date: 05/18/2019 1101 FAX #: [phone] Reason: SHORTNESS OF BREATH EXAMS: CPT CODE: [id number] XR CHEST 1 V 68709 Chest one view AP 05/18/2019 11:02 AM CLINICAL INDICATION: Shortness of breath COMPARISON: 05/16/2019 LOCATION: W1 IMPRESSION: There is suspected pulmonary emphysema. There is bibasilar atelectasis. Cardiomediastinal contours are within normal limits. The central pulmonary vasculature is not engorged. at 1103 Reported and signed by: YING BURTON M.D. CC: Vernon Rivera; Javier Perera MD Technologist: RT OLU(R)() (ARRT) Transcribed Date/Time/By: 05/18/2019 (1103) :[email or web address] Orig Print D/T: S: 05/18/2019 (9316) Automated exposure control, iterative reconstruction technique, and/oradjustment [...] UDS PROCEDURAL CONTROL VERIFIED? YKIT LOT # [id number]. DATE [id number] 03:43:00 Test Item Value Reference Range Interpretation Comments LACTIC ACID (test code = LACT) 1.00 mmol/L 0.4-2.0 N [id number] 03:38:00 Test Item Value Reference Range Interpretation Comments AMMONIA (test code = AMM) <10 umol/L L - DUP EXTRACRANIAL [id number] 14:35:00 [place]: [facility] St: ADM Name: BART SANCHEZ [facility] : 1945 Age/S: 73/M [address] [facility] Unit #: [id number] Loc: [address] [place], [place] [address] Phys: Bryce Herzog MD Acct: [id number] Dis Date: Status: ADM IN PHONE #: [phone] Exam Date: 05/17/2019 1414 FAX #: [phone] Reason: msc EXAMS: CPT CODE: [id number] DUP EXTRACRANIAL STEPHANIE 57100 BILATERAL CAROTID ARTERY ULTRASOUND 05/17/2019 CLINICAL INDICATION: [...] CCA 108 Right ECA: 80 Left ECA: 90Right ICA/CCA ratio: 0.7 Left ICA/CCA ratio: 0.5 Flow is antegrade in both vertebral arteries. IMPRESSION: No evidence for hemodynamically significant stenosis in either internal carotid artery. at 1435 Reported and signed by: YING BURTON M.D. PAGE 1 Signed Report (CONTINUED) [place]: [facility]: [facility]: [facility]: 1945 Age/S: 73/M [address] [facility] Unit #: [id number] Loc: [address] [place], [place] Phys: Bryce Herzog MD Acct: [id number] Dis Date: Status: ADM IN PHONE #: [phone] ExamDate: 05/17/2019 1414 FAX #: [phone] Reason: msc EXAMS: CPT CODE: [id number] DUP EXTRACRANIAL STEPHANIE 72192 (Continued) Facility ACR Accreditation for Ultrasound - July 2011 CC: Vernon Rivera; Javier Perera MD; MD Rosenda Trammell Technologist: BRE ALDANA RDMS Transcribed Date/Time/By: 05/17/2019 (1040) : By: [email or web address] Orig Print D/T: S: 05/17/2019 (6568) PAGE 2 Signed Report- MRI BRAIN W WO [id number] 14:13:00 FAX: Vernon Holm [phone] Camps: [facility]: ADM FAX: Javier Vences MD FAX: Bryce Orta MD [phone] Name: BART SANCHEZ [facility] : 1945 Age/S: 73/M [address] [facility] Unit #: [id number] Loc: [address] [place], [place] [address] Phys: Bryce Herzog MD Acct: [id number] Dis Date: Status: ADM IN PHONE #: [phone] Exam Date: 05/17/2019 1404 FAX #: [phone] Reason: msc EXAMS: CPT CODE: [id number] MRI BRAIN W WO CONT 53106 MRI Brain with and without contrast 05/17/2019 2:10 PM CLINICAL HISTORY: Mental status change TECHNIQUE: Multiplanar, multisequence MR imaging of the brain was performed, utilizing the following imaging sequences: Axial T1, T2, FLAIR,GRE, DWI/ADC; sagittal T1; postcontrast axial, sagittal, and coronal T1. COMPARISON: 11/11/2010. LOCATION: W1 FINDINGS: Patient motion degrades this examination. Pathology may be obscured. With this limitation mind, there is no acute infarct, mass, hematoma, hydrocephalus, extra-axial collection, or abnormal intracranial enhancement. There is moderately advanced chronic microvascular ischemia in the worrell pratentorial white matter. There is questionable hemosiderin staining [...] 1 Signed Report (CONTINUED) FAX: Vernon Holm [phone] Camps: FAY St: ADM FAX: Javier Vences MD FAX: Bryce Orta MD [phone] Name: BART SANCHEZ RUDDY [facility] : 1945 Age/S: 73/M 89a Jonah Wooten [facility] Unit #: [id number] Loc: [address] [place], [place] [address] Phys: Bryce Herzog MD Acct: [id number] Dis Date: Status: ADM IN PHONE #: [phone] Exam Date: 05/17/2019 1404 FAX #: [phone] Reason: msc EXAMS: CPT CODE: [id number] MRI BRAIN W WO CONT 12849 (Continued) CC: Vernon Rivera; Javier Perera MD; MD Rosenda Trammell Technologist: Neymar Washington RT(R)(CT)(MRI)ARRT Transcribed Date/Time/By: 05/17/2019 (1413) :[email or web address] Orig Print D/T: S: 05/17/2019 (141) PAGE 2 Signed ReportVITAMIN [id number] 09:18:00 Test Item Value Reference Range Interpretation Comments VITAMIN B12 (test code = VITB12) 677 pg/mL 230-940 N C REACTIVE [id number] 09:12:00 Test Item Value Reference Range Interpretation Comments C REACTIVE PROTEIN (test code = 0.60 mg/dL 0.29-0.90 N CRP) DILANTIN (PHENYTOIN)2019-05-17 08:49:00 Test Item Value Reference Range Interpretation Comments DILANTIN (PHENYTOIN) (test code = 15.4 mcg/dL 04-16 N DIL) BASIC METABOLIC [id number] 06:24:00 Test Item Value Reference Range Interpretation [...] code = 9.1 mg/dL 7.8-10.9 N CA) [id number] 06:24:00 Test Item Value Reference Range Interpretation Comments MAGNESIUM (test code = MAG) 2.2 mg/dL 1.5-2.1 H CBC W/AUTO [id number] 06:22:00 Test Item Value Reference Range Interpretation [...] 0.00 K/mm3 0.00-0.20 N NRBC#) BASIC METABOLIC [id number] 06:21:00 Test Item Value Reference Range Interpretation [...] code = CA) 9.1 mg/dL 7.8-10.9 N [id number] 06:21:00 Test Item Value Reference Range Interpretation Comments MAGNESIUM (test code = MAG) 2.2 mg/dL 1.5-2.1 H ARTERIAL BLOOD [id number] 18:32:00 Test Item Value Reference Range Interpretation [...] 0.2 % 0.0-1.5 N METHGB) HEPATIC FUNCTION [id number] 17:37:00 Test Item Value Reference Range Interpretation [...] 45-117 N TOTAL (test code = ALKP) [id number] 17:37:00 Test Item Value Reference Range Interpretation Comments LIPASE (test code = 242 U/L 73-393 N Reportin g units: LIP) International U nits/L NT PRO-BRAIN NATRIURETIC [id number] 17:37:00 Test Item Value Reference Range Interpretation Comments NT PRO-BRAIN NATRIURETIC PEPTI (test 94 pg/mL 0-125 N code = PROBNP) TROPONIN I [id number] 17:35:00 Test Item Value Reference Range Interpretation [...] change s in troponin levelscharacter istic of [place]. CHEMISTRY 8 [id number] 17:35:00 Test Item Value Reference Range Interpretation [...] 0.6-1.0 N CREATBED) - XR CHEST 1 [id number] 17:34:00 FAX: Vernon Holm [phone] Camps: ER St: REG FAX: Catarino Lopez [phone] ---- Name: ROSE MARYJOHNSONBART [facility] : 1945 Age/S: 73/M [address] Unit #: [id number] Loc: [place], [place] [address] Phys: Catarino Lopez MD Acct: [id number] Dis Date: Status: REGER PHONE #: [phone] Exam Date: 05/16/2019 1706 FAX #: [phone] Reason: SOB EXAMS: CPT CODE: [id number] XR CHEST 1 V 60430 AP VIEW OF THE CHEST LOCATION: R16 CLINICAL HISTORY: Shortness of breath. COMPARISON: Chest radiograph 05/08/2019. FINDINGS: The cardiomediastinal shadow is within normal limits. Mild atherosclerotic calcifications are noted in the aortic knob. The lungs are clear. No pleural fluids. No acute bony abnormality is found. IMPRESSION: No radiographic evidence of acute cardiopulmonary disease process. at 1733 Reported and signed by: SALVADOR FLANAGAN MD CC: Vernon Rivera; Catarino Lopez MD Technologist: ZEINA RIZVI,RT(R)() (ARRT) Transcribed Date/Time/By: 05/16/2019 (2216) :Henrique.[email or web address] Orig Print D/T: S: 05/16/2019 (2936) Automated exposure control, iterative reconstruction technique, and/oradjustment of mA and/or kV according to patient's size was utilizedfor optimum radiation dose reduction. PAGE 1 Signed ReportPROTHROMBIN [id number] 17:26:00 Test Item Value Reference Interpretation Comments [...] THE PATIENT ON ANY ANTICOAGULANTS? NTHROMBOPLASTIN TIME [id number] 17:26:00 Test Item Value Reference Range Interpretation Comments THROMBOPLASTIN TIME PARTIAL 30.3 SECONDS 23.0-32.0 N (test code = PTT) IS THE PATIENT ON ANY ANTICOAGULANTS? ND-DIMER [id number] 17:26:00 Test Item Value Reference Range Interpretation Comments D-DIMER QUANT (test 0.31 mg/L 0.19-0.52 N *A resul t of greater or code = DDIMER) equal to 0.50 mg/L FEU is consideredpo sitive, a result of <0.50 is considered nega tive for DVTor PE. IS THE PATIENT ON ANY ANTICOAGULANTS? NPROTHROMBIN [id number] 17:24:00 Test Item Value Reference Interpretation Comments [...] THE PATIENT ON ANY ANTICOAGULANTS? NTHROMBOPLASTIN TIME [id number] 17:24:00 Test Item Value Reference Range Interpretation Comments THROMBOPLASTIN TIME PARTIAL (test SECONDS 23.0-32.0 code = PTT) IS THE PATIENT ON ANY ANTICOAGULANTS? ND-DIMER [id number] 17:24:00 Test Item Value Reference Range Interpretation Comments D-DIMER QUANT (test code = DDIMER) mg/L 0.19-0.52 IS THE PATIENT ON ANY ANTICOAGULANTS? NCBC W/AUTO [id number] 17:16:00 Test Item Value Reference Range Interpretation [...] 0.00-0.20 N NRBC#) - CT CHEST W/O [id number] 20:25:00 [place]: [address] St: REG Name: BART SANCHEZ ALAN [facility] : 1945 Age/S: 73/M [address] Unit #: [id number] Loc: .[place], [place] [address] Phys: Randolph Romero MD Acct: [id number] Dis Date: Status: REG ER PHONE #: [phone] Exam Date: 05/08/20192004 FAX #: [phone] Reason: SOB CTDI: DLP: Automated exposure control, iterative reconstruction technique, and/oradjustment of mA and/or kV according to patient's size was utilized fooptimum radiation dose reduction. EXAMS: CPT CODE: [id number] CT CHEST W/O CONTRAST 60895 CT chest without IV contrast INDICATION:SOB COMPARISON: [...] in the right lower lobe. 5 mm noduleis noted in the left lower lobe. Additional [...] 6 month PAGE 1 Signed Report (CONTINUED) [place]: FAY St: REG Name: BART SANCHEZ [facility] : 1945 Age/S: 73/M [address] [facility] Unit #:[id number] Loc: [place], [place] [address] Phys: Randolph Romero MD Acct: [id number] Dis Date: Status: REG ER PHONE #: [phone] Exam Date: 05/08/20192004 FAX #: [phone] Reason: SOB CTDI: DLP: Automated exposure control, iterative reconstruction technique, and/oradjustment of mA and/or kV according to patient's size was utilized fooptimum radiation dose reduction. EXAMS: CPT CODE: [id number] CT CHEST W/O CONTRAST 07698 (Continued) CT follow-up. 3. No consolidation. at 2024 Reported and signed by: JANELLE DAWN M.D. [facility] Accreditation for [place] - January 2012 CC: Vernon Rivera; Randolph Romero MD Technologist: ALICIA MOSER RT(R) (ARRT) Transcribed Date/Time/By: 05/08/2019 (2024) : By: [email or web address] Orig Print D/T: S: 05/08/2019 (2028) PAGE 2 Signed ReportNT PRO-BRAIN NATRIURETIC [id number] 19:49:00 Test Item Value Reference Range Interpretation Comments NT PRO-BRAIN NATRIURETIC PEPTI 108 pg/mL 0-125 N (test code = PROBNP) CBC W/AUTO [id number] 19:45:00 Test Item Value Reference Range Interpretation [...] 0.00 K/mm3 0.00-0.20 N NRBC#) ARTERIAL BLOOD [id number] 19:27:00 Test Item Value Reference Range Interpretation [...] 0.1 % 0.0-1.5 N METHGB) TROPONIN I [id number] 19:26:00 Test Item Value Reference Range Interpretation [...] change s in troponin levelscharacter istic of [place]. CHEMISTRY 8 [id number] 19:26:00 Test Item Value Reference Range Interpretation [...] 0.6-1.0 L CREATBED) - XR CHEST 1 [id number] 19:09:00 FAX: Vernon Holm [phone] Camps: ER St: REG FAX: Randolph Weiss MD Name: BART SANCHEZ [facility] : 1945 Age/S: 73/M [address] [facility] Unit #: [id number] Loc: [place], [place] [address] Phys: Randolph Romero MD Acct: [id number] Dis Date: Status: REG ER PHONE #: Exam Date: 05/08/2019 1842 FAX #: [phone] Reason: SOB EXAMS: CPT CODE: [id number] XR CHEST 1 V 26151 Site ID: [id number] EXAMINATION: - XR CHEST [...] (1908) :Osvaldo Orig Print D/T: S: 05/08/2019 (1911) Automated exposure control, iterative reconstruction technique, and/oradjustment of mA and/or kV according to patient's size was utilizedfor optimum radiation dose reduction. PAGE 1 Signed ReportARTERIAL BLOOD [id number] 05:20:00 Test Item Value Reference Range Interpretation [...] 0.2 % 0.0-1.5 N METHGB) BASIC METABOLIC [id number] 19:08:00 Test Item Value Reference Range Interpretation [...] code = 9.8 mg/dL 7.8-10.9 N CA) [id number] 19:08:00 Test Item Value Reference Range Interpretation Comments MAGNESIUM (test code = MAG) 2.2 mg/dL 1.5-2.1 H NT PRO-BRAIN NATRIURETIC [id number] 19:08:00 Test Item Value Reference Range Interpretation Comments NT PRO-BRAIN NATRIURETIC PEPTI (test 43 pg/mL 0-125 N code = PROBNP) PROTHROMBIN [id number] 18:58:00 Test Item Value Reference Interpretation Comments [...] THE PATIENT ON ANY ANTICOAGULANTS? NTHROMBOPLASTIN TIME [id number] 18:58:00 Test Item Value Reference Range Interpretation Comments THROMBOPLASTIN TIME PARTIAL 29.1 SECONDS 23.0-32.0 N (test code = PTT) IS THE PATIENT ON ANY ANTICOAGULANTS? NPROTHROMBIN [id number] 18:57:00 Test Item Value Reference Interpretation Comments [...] THE PATIENT ON ANY ANTICOAGULANTS? NTHROMBOPLASTIN TIME [id number] 18:57:00 Test Item Value Reference Range Interpretation Comments THROMBOPLASTIN TIME PARTIAL (test SECONDS 23.0-32.0 code = PTT) IS THE PATIENT ON ANY ANTICOAGULANTS? NCBC W/AUTO [id number] 18:43:00 Test Item Value Reference Range Interpretation [...] 0.00 K/mm3 0.00-0.20 N NRBC#) TROPONIN I [id number] 18:41:00 Test Item Value Reference Range Interpretation Comments TROPONIN I RAPID 0.00 NG/ML 0.00-0.08 N 0.00 - 0.08 Normal0.09 - (test code = 0.40 Indetermin ate for TROPIRAP) AMI 0.41 and ab ove Compatible with AMI - XR CHEST 1 [id number] 18:10:00 FAX: Vernon Holm [phone] Camps: ER St: REG FAX: Sergio Sanderson DO [phone] -- Name: BART SANCHEZ [facility] : 1945 Age/S: 73/M [address] Unit #: [id number] [place]: [place] [address] Phys: Sergio Nicole DO Acct: [id number] Dis Date: Status: REG ER PHONE #: [phone] Exam Date: 03/31/2019 1756 FAX #: [phone] Reason: SOB EXAMS: CPT CODE: [id number] XR CHEST 1 V 13579 Exam: Chest portable semierect Location: H 12 History: SOB Comparison: SOB Findings: The lungs are clear. No infiltrate or effusion is seen. The pulmonary vasculature is normal. The heart size is enlarged. Atherosclerosis involves the aorta. The mediastinal silhouette is unr emarkable. The bony thorax is intact with degenerative changes noted. Impression: No acute disease. at 1810 Reported and signed by: LIZ DOUGLASS MD CC: Vernon Rivera; Sergio Nicole DO Technologist: RT MINI,(R) ARRT Transcribed Date/Time/By: 03/31/2019 (1809) :Simon Orig Print D/T: S: 03/31/2019 (1812) Automated exposure control, iterative reconstruction technique, and/oradjustment of mA and/or kV according to patient's size was utilizedfor optimum radiation dose reduction. PAGE 1 Signed ReportCHEMISTRY 8 [id number] 18:03:00 Test Item Value Reference Range Interpretation [...] 0.6 MG/DL 0.6-1.0 N CREATBED) TROPONIN I [id number] 15:57:00 Test Item Value Reference Range Interpretation Comments TROPONIN I RAPID 0.01 NG/ML 0.00-0.08 N 0.00 - 0.08 Normal0.09 - (test code = 0.40 Indetermin ate for TROPIRAP) AMI 0.41 and ab ove Compatible with AMI CHEMISTRY 8 [id number] 15:50:00 Test Item Value Reference Range Interpretation [...] 0.6-1.0 N CREATBED) - XR CHEST 1 [id number] 15:19:00 FAX: Vernon Holm [phone] Camps: ER St: REG FAX: Rodo Alberto MD [phone] --- Name: BART SANCHEZ [facility] : 1945 Age/S: 73/M [address] Unit #: [id number] Loc: [place], [place] [address] Phys: Rodo Euceda MD Acct: [id number] Dis Date: Status: REG ERPHONE #: [phone] Exam Date: 03/24/2019 1505 FAX #: [phone] Reason: dyspnea EXAMS: CPT CODE: [id number] XR CHEST 1 V 58593 Chest one view AP 03/24/2019 3:19 PM CLINICAL HISTORY: Dyspnea COMPARISON: 03/22/2019 LOCATION: W1 FINDINGS: The lungs are clear. Cardiomediastinal contours are within normal limits. The central pulmonary vasculature is not engorged. IMPRESSION: Unremarkable frontal chestradiograph. at 0283 Reported and signed by: YING BURTON M.D. CC: Vernon Rivera; Rodo Ecueda MD Technologist: RT NADIRA(R) DEVANT Transcribed Date/Time/By: 03/24/2019 (1419) :[email or web address] Orig Print D/T: S: 03/24/2019 (0098) Automated exposure control, iterative reconstruction technique, and/oradjustment of mA and/or kV according to patient's size was utilizedfor optimum radiation dose reduction. PAGE 1 Signed ReportURINALYSIS W/O [id number] 20:38:00 Test Item Value Reference Range Interpretation [...] (test code = LEUU) SOURCE: URINESPECIMEN DESCRIPTION: [facility] [id number] 20:38:00 Test Item Value Reference Range Interpretation Comments UA WBC (test code = WBCU) 0-2 0-5 UA RBC (test code = RBCU) 0-2 0-5 UA AMORPHOUS SEDIMENT (test code = OCC NONE-FEW AMORU) SOURCE: URINESPECIMEN DESCRIPTION: [facility] [place] [id number] 20:35:00 Test Item Value Reference Range Interpretation [...] 45-117 N TOTAL (test code = ALKP) [id number] 20:35:00 Test Item Value Reference Range Interpretation Comments MAGNESIUM (test code = MAG) 1.8 mg/dL 1.5-2.1 N THYROID STIMULATING [id number] 20:35:00 Test Item Value Reference Range Interpretation Comments THYROID STIMULATING 2.78 mcgIU/mL 0.400-4.00 N Reporti ng units: HORMONE (test code = Interna tional Units/L TSH) NT PRO-BRAIN NATRIURETIC [id number] 20:35:00 Test Item Value Reference Range Interpretation Comments NT PRO-BRAIN NATRIURETIC PEPTI (test 68 pg/mL 0-125 N code = PROBNP) TROPONIN I [id number] 20:07:00 Test Item Value Reference Range Interpretation Comments TROPONIN I RAPID 0.00 NG/ML 0.00-0.08 N 0.00 - 0.08 Normal0.09 - (test code = 0.40 Indetermin ate for TROPIRAP) AMI 0.41 and ab ove Compatible with AMI POC LACTIC [id number] 20:07:00 Test Item Value Reference Range Interpretation Comments POC LACTIC ACID 2.19 MMOL/L 0.40-2.00 H RESULTS CALL ED TO [] (test code = POCLAC) AT 200603/22/19.NMI-MT CRITICA L VALUE READ BA CK BY NURSE AND VERIF IED BY TECH? []REFEREN CE RANGES FOR: 1) ARTERIAL SAMPLE (0.5-1.6MMOL/L) 2) SPINAL FLUID (0.6-2.2MMOL/L) PROTHROMBIN [id number] 20:04:00 Test Item Value Reference Interpretation Comments [...] THE PATIENT ON ANY ANTICOAGULANTS? NTHROMBOPLASTIN TIME [id number] 20:04:00 Test Item Value Reference Range Interpretation Comments THROMBOPLASTIN TIME PARTIAL 32.2 SECONDS 23.0-32.0 H (test code = PTT) IS THE PATIENT ON ANY ANTICOAGULANTS? NCBC W/AUTO [id number] 19:49:00 Test Item Value Reference Range Interpretation [...] 0.00 K/mm3 0.00-0.20 N NRBC#) URINALYSIS W/O [id number] 19:49:00 Test Item Value Reference Range Interpretation [...] code = LEUU) SOURCE: URINESPECIMEN DESCRIPTION: [facility]MCUA [id number] 19:49:00 Test Item Value Reference Range Interpretation Comments UA WBC (test code = WBCU) 0-5 UA RBC (test code = RBCU) 0-5 SOURCE: URINESPECIMEN DESCRIPTION: CMCURINALYSIS W/O [id number] 19:49:00 Test Item Value Reference Range Interpretation [...] code = LEUU) SOURCE: URINESPECIMEN DESCRIPTION: [facility]UA [id number] 19:49:00 Test Item Value Reference Range Interpretation Comments UA WBC (test code = WBCU) 0-5 UA RBC (test code = RBCU) 0-5 SOURCE: URINESPECIMEN DESCRIPTION: CMCCHEMISTRY 8 [id number] 19:48:00 Test Item Value Reference Range Interpretation [...] 0.6-1.0 N CREATBED) - XR CHEST 1 [id number] 19:36:00 FAX: Vernon Holm [phone] Camps: ER St: REG FAX: Catarino Lopez [phone] ---- Name: BART SANCHEZ [facility] : 1945 Age/S: 73/M [address] [facility] Unit #: [id number] Loc: [place], [place] [address] Phys: Catarino Lopez MD Acct: [id number] Dis Date: Status: REGER PHONE #: [phone] Exam Date: 03/22/20191929 FAX #: [phone] Reason: SOB EXAMS: CPT CODE: [id number] XR CHEST 1 V 57689 AP VIEW OF THE CHEST LOCATION: R16 [...]
[2022-03-19] MEDS ORDERED: LORazepam 2 MG/ML VIAL IV ONE (21:14)
[2022-03-19] MEDS ORDERED: ACETAMINOPHEN 650MG/RECT SUPP PR PRN (21:15)
[2022-03-19] MEDS ORDERED: GLYCOPYRROLATE 0.2 MG/ML SYR IV PRN (21:15)
[2022-03-19] MEDS ORDERED: LORazepam 2 MG/ML VIAL IV PRN (21:15)
[2022-03-19] MEDS ORDERED: BISACODYL 10 MG RECTAL SUPP PR PRN (21:15)
[2022-03-20] MEDS: HALOPERIDOL LACT 5 MG/ML INJ IV SCH ×4 (00:07→22:10)
[2022-03-20] MEDS: HALOPERIDOL LACT 5 MG/ML INJ IV PRN (04:17)
[2022-03-20] MEDS: MORPHINE 2 MG/ML SYR IV PRN (10:10)
[2022-03-20] MEDS: ZIPRASIDONE MESYLA 20 MG/VIAL IM PRN ×2 (12:05→19:15)
[2022-03-20] MEDS: WATER FOR INJ,STERILE 10 ML IM PRN ×2 (12:05→19:16)
--- NOTE | 2022-03-20 17:19 | P.SSS ---
Patient History Date of Service: 03/20/22 Reason for admission: ALTERED MENTAL STATE History of Present Illness: MR LAURA IS WELL KNOWN TO ME. HE HAS SEVERE COPD, MODERATE DEMENTIA AND RECENTLY HE HAS BEEN GETTING WEAKER. HE FELL OUTSIDE HOME AND MAY HAVE INJURED HEAD BUT HAS CONTROLLED SUBARACHANOID HEMORRHAGE HE HAS BEEN IN [facility] LATELY, HE GOT CONFUSED AND THEY SEND HIM BACK HERE. HOSPITAL DOCTORS CALLED ME HE IS MY PATIENT. I ASKED THEM TO GET HOSPICE HE IS GETTING WORSE AND I SUSPECT WITH DEMENTIA AND BRAIN BLEEDS IT IS NOW APPROPRIATE. FAMILY AGREED AND MICHELLE PROMOTED [facility] FOR [facility]. HE WILL HAVE [facility] NOW TAKING CARE OF HIM. FAMILY KNOWS THAT I WILL NOT BE IN [place] ANY LONGER. THEY ARE OKAY WITH IT THEY WANTED FACILITY DOCTOR TO TAKE CARE OF HIM THEY DON'T LIVE HERE AND THEY HAVE NO TRANSPORTAION. Allergies No Known Allergies Allergy (Verified 12/11/21 22:52) Home Medications: Divalproex ER [Depakote *ER] 1 tab PO BID 12/12/21 Albuterol Sulfate [Albuterol Sulfate Hfa] 2 puff IH Q6H PRN 03/19/22 Donepezil HCl 10 mg PO DAILY 03/19/22 Multivitamin with Minerals [Multivitamins with Minerals] 1 each PO DAILY 03/19/22 Polyethyl Gly 3350 [Glycolax*] 17 gm PO DAILY 03/19/22 Trazodone [Desyrel*] 150 mg PO BEDTIME 03/19/22 - Past Medical/Surgical History Diabetic: No -: Asthma -: COPD -: Dementia -: Hypertension -: Intracranial Hemorrhage -: hip surgery -: appedectomy Psychosocial/ Personal History: Patient lives at [facility]. - Social History Smoking Status: Unknown if ever smoked Alcohol use: No CD- Drugs: No Caffeine use: No Physical Examination - Vital Signs Temperature: 97.6 F Blood Pressure: 154/83 Pulse: 90 Respirations: 18 Pulse Ox (%): 96 - Physical Exam General: Oriented x1, Moderate distress, Confused (AGITATED PULLS THINGS, WALKS OUT CONFUSED.) HEENT: Atraumatic, PERRLA, Mucous membr. moist/pink, EOMI, Sclerae nonicteric Neck: Supple, 2+ carotid pulse no bruit, No LAD, Without JVD or thyroid abnormality Respiratory: Clear to auscultation bilaterally, Normal air movement Cardiovascular: Regular rate/rhythm, Normal S1 S2 Gastrointestinal: Normal bowel sounds, No tenderness Musculoskeletal: No tenderness Integumentary: No rashes Neurological: Abnormal strength Lymphatics: No axilla or inguinal lymphadenopathy - Diagnosis (Problem(s)) (1) Subarachnoid hemorrhage Current Visit: No Status: Acute Plan: RECURRENT BLEEDS. HE HAS AMYLOID ANGIOPATHY THERE IS NO CURE. HE NEEDS TO BE COMFORTABLE IN ONE PLACE AND NOT COME TO ER EVERY WEEK OR TWO. ER DOCTORS OR ANY OTHER EXPERTS CAN'T HELP HIM. FAMILY AGREES THEY HAVE CHOSEN HOSPICE HE IS READY TO GO TO HIS PLACE WITH HOSPICE I HAVE WRITTEN ORDERS. (2) Alzheimer disease Current Visit: No Status: Chronic (3) COPD (chronic obstructive pulmonary disease) Current Visit: No Status: Chronic Qualifiers: COPD type: unspecified COPD Qualified Code(s): J44.9 - Chronic obstructive pulmonary disease, unspecified - Disposition Disposition: HOSPICE-HOME Condition: FAIR
[2022-03-21] MEDS: HALOPERIDOL LACT 5 MG/ML INJ IV PRN ×2 (02:04→23:59)
[2022-03-21] MEDS: ZIPRASIDONE MESYLA 20 MG/VIAL IM PRN ×3 (05:58→21:04)
[2022-03-21] MEDS: HALOPERIDOL LACT 5 MG/ML INJ IV SCH ×3 (07:17→22:10)
[2022-03-21] MEDS: WATER FOR INJ,STERILE 10 ML IM PRN (21:04)
[2022-03-21 22:07] VITALS: BMI 17.7
[2022-03-22] MEDS: MORPHINE 2 MG/ML SYR IV PRN (02:16)
[2022-03-22] MEDS: HALOPERIDOL LACT 5 MG/ML INJ IV PRN ×2 (05:16→11:47)
[2022-03-22] MEDS: ZIPRASIDONE MESYLA 20 MG/VIAL IM PRN (05:46)
[2022-03-22] MEDS: HALOPERIDOL LACT 5 MG/ML INJ IV SCH ×3 (07:52→23:15)
[2022-03-23] MEDS: HALOPERIDOL LACT 5 MG/ML INJ IV PRN (03:29)
[2022-03-23] MEDS: HALOPERIDOL LACT 5 MG/ML INJ IV SCH ×3 (06:35→23:11)
[2022-03-23] MEDS: WATER FOR INJ,STERILE 10 ML IM PRN ×3 (10:22→19:43)
[2022-03-23] MEDS: ZIPRASIDONE MESYLA 20 MG/VIAL IM PRN ×3 (10:22→19:42)
[2022-03-24] MEDS: HALOPERIDOL LACT 5 MG/ML INJ IV SCH ×3 (06:15→22:36)
[2022-03-24 16:13] VITALS: O2SAT 98
[2022-03-25] MEDS: HALOPERIDOL LACT 5 MG/ML INJ IV PRN (02:59)
[2022-03-25] MEDS: HALOPERIDOL LACT 5 MG/ML INJ IV SCH (06:44)
[2022-03-25 08:36] VITALS: BP 135/78; TEMP 97.7
== END 2022-03-25 09:18 | disposition hospice, home (50) | DRG 951 ==
LOC: 4TH 21:03
PROVIDERS: ADMIT Internal Medicine; ATTEND Internal Medicine Hematology & Oncology
DX: Z51.5 Encounter for palliative care (principal); I10 Essential (primary) hypertension; I99.8 Other disorder of circulatory system; J44.9 Chronic obstructive pulmonary disease, unspecified; G30.9 Alzheimer's disease, unspecified; F02.80 Dementia in other diseases classified elsewhere, unspecified severity, without behavioral disturbance, psychotic disturbance, mood disturbance, and anxiety; Z90.49 Acquired absence of other specified parts of digestive tract; Z79.899 Other long term (current) drug therapy
CPT/HCPCS: J1630; J2270; J3486